=== PATIENT | female | born 1950 | race Caucasian/White ===

== ENCOUNTER 2022-10-23 10:55 | Outpatient (OUT) | payer MEDICARE, BC, SELFPAY ==
[2022-10-23 11:45] LABS: Creatinine Urine Random 97.93 mg/dL (20.00-300.00); Microalbum Creatinine Ratio Ur 82.7 mg/g (0.0-29.9); Microalbumin Urine Random 8.1 mg/dL (<=30.0)
[2022-10-23 11:55] LABS: Alanine Aminotransferase 18 U/L (14-59); Albumin Globulin Ratio 1.2; Albumin Level 3.8 g/dL (3.4-5.0); Alkaline Phosphatase 71 U/L (46-116); Anion Gap 13.9; Aspartate Amino Transferase 8 U/L (15-37); BUN Creatinine Ratio 14.9; Bilirubin Total 1.1 mg/dL (0.2-1.0); Calcium 9.3 mg/dL (8.5-10.1); Chloride 104 mmol/L (98-107); Chol HDL Ratio 2.8; Cholesterol 168 mg/dL (<=200); Estimated GFR (African America >60 (>=60); Estimated GFR (Non-African Ame >60 (>=60); Globulin 3.2 g/dL; Glucose 111 mg/dL (74-106); HDL Cholesterol 59 mg/dL (40-60); LDL Cholesterol Calculated 85.6 mg/dL; Potassium 4.9 mmol/L (3.5-5.1); Sodium 142 mmol/L (136-145); Triglycerides 117 mg/dL (<=150); VLDL CHOLESTEROL 23.4 mg/dL
[2022-10-23 12:04] LABS: Basophils Absolute Auto 0.1 10^3/uL (0.0-0.1); Basophils Percent Auto 0.7 % (0.2-2.0); Eosinophils Absolute Auto 0.5 10^3/uL (0.0-0.7); Eosinophils Percent Auto 5.2 % (0.9-7.0); Hematocrit 39.5 % (36.0-48.0); Hemoglobin 12.7 g/dL (12.0-16.0); Immature Granulocytes Abs Auto 0.03 10^3/uL (0.00-0.03); Immature Granulocytes Pct Auto 0.3 % (0.0-0.5); Lymphocytes Absolute Auto 2.5 10^3/uL (1.2-3.8); Lymphocytes Percent Auto 28.3 % (20.5-60.0); Mean Corpuscular HGB Conc 32.2 g/dL (29.9-35.2); Mean Corpuscular Hemoglobin 30.1 pg (26.7-34.0); Mean Corpuscular Volume 93.6 fL (81.0-99.0); Mean Platelet Volume 9.9 fL (9.5-13.5); Monocytes Absolute Auto 0.7 10^3/uL (0.3-0.8); Monocytes Percent Auto 7.7 % (1.7-12.0); Neutrophils Absolute Auto 5.1 10^3/uL (1.4-6.5); Neutrophils Percent Auto 57.8 % (43.0-75.0); Platelet Count 312 10^3/uL (150-450); Red Blood Count 4.22 10^6/uL (4.20-5.40); Red Cell Distribution Width 13.3 % (11.0-15.0); White Blood Count 8.8 10^3/uL (4.0-11.0)
[2022-10-23 12:15] LABS: Estimated Average Glucose 134 mg/dL; Glycohemoglobin A1C 6.3 % (4.5-6.2)
== END 2022-10-23 10:56 | disposition home or self-care (01) ==
LOC: LAB 10:59
PROVIDERS: PCP Family Medicine; Visit Provider Family Medicine
DX: E78.5 Hyperlipidemia, unspecified (principal); E11.9 Type 2 diabetes mellitus without complications; Z79.899 Other long term (current) drug therapy; R80.9 Proteinuria, unspecified; D75.89 Other specified diseases of blood and blood-forming organs
CPT/HCPCS: 36415; 80053; 80061; 82043; 82570; 82607; 82746; 83036; 85025

== ENCOUNTER 2022-12-31 14:08 | Outpatient (REF) | payer MEDICARE, BC, SELFPAY ==
[2022-12-31 16:01] LABS: Occult Blood Positive
== END 2022-12-31 14:09 | disposition home or self-care (01) ==
LOC: LAB 14:08
PROVIDERS: PCP Family Medicine; Visit Provider Family Medicine
DX: D64.9 Anemia, unspecified (principal)
CPT/HCPCS: G0328

== ENCOUNTER 2023-01-06 09:34 | Outpatient (OUT) | payer MEDICARE, BC, SELFPAY ==
--- NOTE | 2023-01-06 09:39 | CT_ITS ---
[address] [address] Patient Name: ANGELA NIETO MRN: [id number] date: 1950 Sex: F Assigned Patient Location: CT Current Patient Location: LAB Accession/Order Number: [id number] Exam Date: 01/06/2023 09:48 Report Date: 01/07/2023 18:31 At the request of: MARY ANNE STARKEY Procedure: CT chest wo con EXAM: CT chest wo con HISTORY: Multiple Pulmonary Nodules R91.8 COMPARISON: 01/01/2010 2 TECHNIQUE: Axial CT imaging was performed through the chest without intravenous contrast. Multiplanar reformats were performed. Dose reduction techniques were achieved by using automated exposure control and/or adjustment of mA and/or kV according to patient size and/or use of iterative reconstruction technique. FINDINGS: Lungs: No consolidation, pneumothorax, or effusion. Stable 0.7 cm right middle lobe pulmonary nodule. Stable 0.8 cm right lower lobe subpleural pulmonary nodule. There are additional nodules in the right lower lobe (3 nodules), measuring up to 0.3 cm No new pulmonary nodule, unchanged. Airways: Normal. Mediastinum: No adenopathy. Aorta: No aneurysm. Cardiac: Normal size. No pericardial effusion. Pulmonary vasculature: Normal morphology. Bones: No acute bony abnormality. Axilla: No adenopathy. Thyroid gland: No abnormality demonstrated on provided imaging. Soft tissues: Unremarkable. Upper abdomen: Small hiatal hernia. Other findings: None. CT/CT chest wo con IMPRESSION: Stable multiple bilateral pulmonary nodules measuring up to 0.8 cm as described above. Small hiatal hernia. Electronically authenticated by: NAN ROGER Date: 01/07/2023 18:31
== END 2023-01-06 09:35 | disposition home or self-care (01) ==
LOC: CT 09:34
PROVIDERS: PCP Family Medicine; Visit Provider Internal Medicine
DX: R91.8 Other nonspecific abnormal finding of lung field (principal)
CPT/HCPCS: 71250

== ENCOUNTER 2023-01-06 10:20 | Outpatient (OUT) | payer MEDICARE, BC, SELFPAY ==
[2023-01-06 11:03] LABS: Basophils Absolute Auto 0.1 10^3/uL (0.0-0.1); Basophils Percent Auto 0.6 % (0.2-2.0); Eosinophils Absolute Auto 0.3 10^3/uL (0.0-0.7); Eosinophils Percent Auto 3.1 % (0.9-7.0); Hematocrit 41.1 % (36.0-48.0); Immature Granulocytes Abs Auto 0.02 10^3/uL (0.00-0.03); Immature Granulocytes Pct Auto 0.2 % (0.0-0.5); Lymphocytes Absolute Auto 2.6 10^3/uL (1.2-3.8); Lymphocytes Percent Auto 27.1 % (20.5-60.0); Mean Corpuscular HGB Conc 31.6 g/dL (29.9-35.2); Mean Corpuscular Hemoglobin 29.9 pg (26.7-34.0); Mean Corpuscular Volume 94.5 fL (81.0-99.0); Mean Platelet Volume 9.8 fL (9.5-13.5); Monocytes Absolute Auto 0.8 10^3/uL (0.3-0.8); Monocytes Percent Auto 8.9 % (1.7-12.0); Neutrophils Absolute Auto 5.7 10^3/uL (1.4-6.5); Neutrophils Percent Auto 60.1 % (43.0-75.0); Platelet Count 351 10^3/uL (150-450); Red Blood Count 4.35 10^6/uL (4.20-5.40); Red Cell Distribution Width 13.2 % (11.0-15.0); White Blood Count 9.5 10^3/uL (4.0-11.0)
== END 2023-01-06 10:21 | disposition home or self-care (01) ==
LOC: LAB 10:22
PROVIDERS: PCP Family Medicine; Visit Provider Family Medicine
DX: D64.9 Anemia, unspecified (principal)
CPT/HCPCS: 36415; 85025

== ENCOUNTER 2023-01-21 14:44 | Outpatient (OUT) | payer MEDICARE, BC, SELFPAY | END 2023-01-21 14:45 | disposition home or self-care (01) | LOC: PST 14:45 | PROVIDERS: PCP Family Medicine; Visit Provider Surgery | DX: Z01.818 Encounter for other preprocedural examination (principal); R19.5 Other fecal abnormalities ==

== ENCOUNTER 2023-02-12 06:30 | Day surgery (SDC) | payer MEDICARE, BC, SELFPAY ==
[2023-02-12 06:50] VITALS: BMI 26.6
--- NOTE | 2023-02-12 07:03 | PM.GSPRC ---
Date of procedure: 02/12/23 Indications for Procedure: positive cologuard Pre-op diagnosis: positive cologuard Procedure: EGD with biopsy antrum Colonoscopy Anesthesia: MAC Surgeon: Jose Horton Procedure Summary: PROCEDURE: The patient was taken to the Endoscopy Suite, placed in the left lateral recumbent position, given IV sedation as above. A rectal digital exam was performed. The sphincter tone was found to be normal. No rectal masses were appreciated. The Olympus video colonoscope was advanced under direct visualization to the rectum, sigmoid colon, descending colon, transverse colon and ascending colon to the ileocecal valve. The underside of the valve was seen. The scope was slowly withdrawn with air being desufflated as it was withdrawn. No gross tumors, polyps or diverticula were seen. The patient tolerated the procedure well and went to the Recovery Area in satisfactory condition. I recommend the patient use a bulk laxative on a regular basis and follow up as needed.
[2023-02-12 07:10] LABS: Glucometer 113 mg/dL (74-106)
[2023-02-12] MEDS: LACTATED RINGER'S SOLUTION 1,000 ML 50 ML IV (07:10)
--- NOTE | 2023-02-12 07:58 | PM.GSPRC ---
Date of procedure: 02/12/23 Indications for Procedure: positive cologuard Pre-op diagnosis: positive cologuard Procedure: EGD with biopsy antrum Colonoscopy with hot snare polyp splenic flexure and transverse colon Findings: mild gastritis rule out esophagitis Colon polyps 7-8 mm on stalk and splenic flexure 5 mm polyp transverse colon sessile Anesthesia: LEXIE Surgeon: Jose Horton Procedure Summary: PROCEDURE: The patient was taken to the Endoscopy Suite, placed in the left lateral recumbent position, given IV sedation as above. timeout was taken. The Olympus EGD scope was advanced under direct visualization to the posterior pharynx esophagus stomach through the pylorus into the 1st 2nd 3rd and 4th portions of the duodenum which were normal. The scope was returned to the stomach retroflexed on itself looking the GE junction which was normal. There were no polyps tumors or ulcers seen but she had mild gastritis. Biopsies were taken of the antrum as well as a test for close. Next patient was turned and A rectal digital exam was performed. The sphincter tone was found to be normal. No rectal masses were appreciated. The Olympus video colonoscope was advanced under direct visualization to the rectum, sigmoid colon, descending colon, transverse colon and ascending colon to the ileocecal valve.appendiceal lumen was visualized as well as the underside of the valve. The scope was slowly withdrawn with air being desufflated as it was withdrawn. No gross tumors or diverticula were seen. there was a pedunculated polyp which appeared benign in the splenic flexure and this was snared and retrieved and then another smaller polyp in the transverse colon which was snared and removed but unsure if it was retrieved. Air was desufflated.The patient tolerated the procedure well and went to the Recovery Area in satisfactory condition. I recommend the patient return for surveillance colonoscopy in five years as long as these are benign. Estimated blood loss (mL): 0 Complications: No Condition: stable Disposition: PACU
[2023-02-12 08:01] VITALS: BP 97/59; PULSE 65; RESP 14; TEMP 36.3; O2SAT 98
[2023-02-12 08:16] VITALS: BP 115/68; PULSE 69; RESP 16; O2SAT 96
[2023-02-12 08:30] VITALS: BP 137/78; PULSE 68; RESP 18; O2SAT 97
[2023-02-13 14:43] LABS: H Pylori Tissue, Urease Negative
== END 2023-02-12 08:35 | disposition home or self-care (01) ==
PROVIDERS: PCP Family Medicine; Visit Provider Surgery
PROC: (CPT 43239; principal; 2023-02-12 07:30)
DX: R19.5 Other fecal abnormalities (principal); K29.70 Gastritis, unspecified, without bleeding; D12.3 Benign neoplasm of transverse colon; N18.9 Chronic kidney disease, unspecified; E11.22 Type 2 diabetes mellitus with diabetic chronic kidney disease; E78.5 Hyperlipidemia, unspecified; I12.9 Hypertensive chronic kidney disease with stage 1 through stage 4 chronic kidney disease, or unspecified chronic kidney disease; Z86.73 Personal history of transient ischemic attack (TIA), and cerebral infarction without residual deficits; Z79.82 Long term (current) use of aspirin; Z79.84 Long term (current) use of oral hypoglycemic drugs; K63.5 Polyp of colon
CPT/HCPCS: 43239; 45385; 36415; 82948; 87077; 88305; 88342; 99999; J2704

== ENCOUNTER 2023-04-29 09:42 | Outpatient (OUT) | payer MEDICARE, BC, SELFPAY ==
--- OUTSIDE RECORDS SUMMARY | 2023-04-29 09:48 | XMS_ITS | CCD ---
Author Name Unknown Address [address] [place] [address] Organization [facility] Care Team Providers Care Cardiology Consultant Name Role Phone MARIA DE JESUS GREEN Unavailable Unavailable ARABELLA MARQUEZ Unavailable Unavailable Arabella Marquez Unavailable Unavailable Unavailable Unavailable Arabella Marquez Unavailable Arabella Marquez Unavailable Norma, Dr. Bailey Attending Unavail able Norma, Dr. Bailey Referring Unavail able Julissa, Arabella Sanchez Primary Care Unavailable GIRVIN, DR BELL Attending Unavailable GIRVIN, DR BELL Consulting Unavailable GIRVIN, DR BELL Primary Care Unavailable GIRVIN, DR BELL Admitting Unavailable ZIEBER, DR DARIEL Hinds Consulting Unavailable GIRVIN, DR BELL Admitting Unavailable GIRVIN, DR BELL Attending Unavailable GIRVIN, DR BELL Consulting Unavailable GIRVIN, DR BELL Primary Care Unavailable SAMSA, MARY ANNE Attending Unavailable SAMSA, MARY ANNE Consulting Unavailable SAMSA, MARY ANNE Admitting Unavailable GIRVIN, DR BELL Primary Care Unavailable LALA, ARABELLA Consulting Unavailable GIRVIN, DR BELL Attending Unavailable GIRVIN, DR BELL Consulting Unavailable GIRVIN, DR BELL Primary Care Unavailable GIRVIN, DR BELL Admitting Unavailable Traboulssi, Dr. Goss Referring Unavaila ble Norma, Dr. Goss Attending Unavaila ble Julissa, Dr. Arabella Sanchez Primary Care Unavaila ble Girvin, Dr. Arabella Sanchez Primary Care Unavaila ble Traboulkartik, Dr. Goss Referring Unavaila ble Traboulkartik, Dr. Goss Attending Unavaila ble Allergies Allergy Classification Reported Allergen(s) Allergy Type Date of Onset Reaction(s) Facility (6 sources) egg Allergy to substance (finding) Unknown -[facility] DO Work Phone: Medications Current Medications Medication Drug Class(es) Dates Sig (Normalized) Sig (Original) atorvastatin 40 mg oral tablet (20 sources) HMG-CoA Reductase Inhibitor Start: 03-16-2018 take 1 tablet by mouth every twenty-four hours Atorvastatin Calcium 40 MG 1 tablet Orally Once a day for 90 days Feb, Active 24 hr fexofenadine hydrochloride 180 mg / pseudoephedrine hydrochloride 240 mg extended release oral tablet (14 sources) alpha-Adrenergic Agonist, Histamine-1 Receptor Antagonist Start: 10-11-2020 take 1 tablet by mouth every twenty-four hours Fexofenadine-Pseud oephed ER 180-240 MG 1 tablet Orally Once a day prn Sep, Active gabapentin 300 mg oral capsule (20 sources) Anti-epileptic Agent Gabapentin 300 MG TAKE 1 CAPSULE BY MOUTH TWICE A DAY FOR 90 DAYS for 90 Active take 2 capsules by mouth once da edison Gabapentin 300 MG Oral Capsule TAKE 2 CAPSULE Daily Quantity: 0 Refills: 0 Ordered: 17-Apr-2021 DO Active losartan potassium 50 mg ora l tablet (20 sources) Angiotensin 2 Receptor Neha Losartan Potassium 5 0 MG TAKE 1 TABLET BY MOUTH EVERY DAY FOR 90 DAYS for 90 Active metFORMIN hydrochloride 500 mg oral tablet (20 sources) Biguanide metFORMIN HCl 50 0 MG TAKE 2 TABLETS BY MOUTH WITH BREAKFAST AND TAKE 1 TABLET WITH EVENING MEAL FOR 90 DAYS for 90 Active take 2 tablets by mo uth at breakfast, then take 1 tablet by mouth at dinner metFORMIN HCl 500 mg 2 tablets with breakfast meal Orally and 1 tablet with evening meal for 90 days Active 24 hr metoprolol succinate 200 mg extended release oral tablet (20 sources) beta-Adrenergic Neha take 1 tablet by mouth once daily Metoprolol Succinate ER 200 MG TAKE 1 TABLET BY MOUTH EVERY DAY for 90 Active triamcinolone acetonide 0.055 mg/actuat metered dose nasal spray (15 sources) Corticosteroid Start: 10-17-19 take 2 spray(s) nasal route once daily Nasacort Allergy 24HR 55 MCG/ACT 2 sprays each nostril Nasally Once a day Sep, Active Start: 01-08-2019 KENARCHIE - 10 m g Dec, 1.5 cc 24 hr venlafaxine 75 mg extended release oral capsule (20 sources) Serotonin and Norepinephrine Reuptake Inhibitor Venlafaxine HCl ER 7 5 MG TAKE 1 CAPSULE BY MOUTH EVERY DAY WITH FOOD FOR 90 DAYS for 90 Active take 1 capsule by mo ut once daily at mealtime Effexor XR 150 MG Oral Capsule Extended Release 24 Hour TAKE 1 CAPSULE ONCE DAILY WITH FOOD. Quantity: 0 Refills: 0 Ordered: 17-Apr-2021 DO Active Vitamin B12 1000 MCG (10 sources) Start: 10-16-2021 take 1 tablet by mouth every other day Vitamin B12 1000 MCG 1 tablet Orally qod Sep, Active {20 (nirmatrelvir 150 MG Oral Tablet) / 10 (ritonavir 100 MG Oral Tablet) } Pack [Paxlovid 5-Day] (1 source) Start: 02-04-2022 Paxlovid (300/ 100) 20 x 150 MG & 10 x 100MG as directed Orally bid Jan, Active Completed/Discontinued Medications Medication Drug Class(es) Dates Sig (Normalized) Sig (Original) aspirin 81 mg delayed release oral tablet (20 sources) Platelet Aggregation Inhibitor, Nonsteroidal Anti-inflammatory Drug Start: 04-17-2021 take 1 tablet by mouth once daily Aspirin EC Low Dose 81 MG Oral Tablet Delayed Release TAKE 1 TABLET DAILY DIRECTED. Quantity: 90 Refills: 3 Ordered: 28-Jan-2022 Maria De Jesus Green MD Start : 17-Apr-2021 Active take 1 tablet by seth th once daily at mealtime Aspirin 81 81 MG 1 tablet Orally qd with food Active take 1 tablet by seth th every twenty-four hours Aspirin 325 MG 1 tablet Orally Once a da y Active Problems Active Problems Problem Classification Problem Date Documented Date Episodic/Chronic Acute cerebrovascular disease (20 sources) Cerebrovascular accident; Translations: [Cerebral artery occlusion, unspecified with cerebral infarction] Onset: 2 Resolved: 2 Chronic Cardiac dysrhythmias (1 source) Tachycardia, unspecified Episodic Coronary atherosclerosis and other heart disease (1 source) Coronary atherosclerosis and other heart disease Onset: 8 Deficiency and other anemia (1 source) Anemia, unspecified Episodic Diabetes mellitus with complications (1 source) Diabetes mellitus with complications Onset: 8 Diabetes mellitus without complication (20 sources) Diabetes mellitus; Translations: [Diabetes mellitus without mention of complication, type II or unspecified type, not stated as uncontrolled] Onset: 2 Resolved: 2 Chronic Diseases of mouth; excluding dental (19 sources) Glossodynia; Translations: [Glossodynia] Onset: 2 Resolved: 2 Episodic Disorders of lipid metabolism (20 sources) Hyperlipidemia; Translations: [Other and unspecified hyperlipidemia] Onset: 2 Resolved: 2 Chronic Essential hypertension (20 sources) Hypertensive disorder; Translations: [Unspecified essential hypertension] Onset: 2 Resolved: 2 Chronic Essential hypertension (1 source) Essential hypertension Onset: 8 Genitourinary symptoms and ill-defined conditions (4 sources) Hematuria, unspecified; Translations: [Nocturia] Onset: 2 Resolved: 2 Episodic Mood disorders (19 sources) Major depressive disorder, single episode, unspecified; Translations: [Depression] Onset: 2 Resolved: 2 Chronic Other aftercare (5 sources) Other halfway (current) drug therapy; Translations: [OTH SENIOR CARE CURRENT DRUG THERAPY] Onset: 2 Resolved: 2 Episodic Other connective tissue disease (2 sources) Pain in unspecified foot Episodic Other hematologic conditions (10 sources) Macrocytosis; Translations: [Other specified diseases of blood and blood-forming organs] Chronic Other hematologic conditions (7 sources) Other specified diseases of blood and blood-forming organs; Translations: [OTH SPEC DZ BLOOD AND BLOOD-FORM ORG] Onset: 2 Resolved: 2 Chronic Other lower respiratory disease (6 sources) Dyspnea on exertion; Translations: [Shortness of breath] Episodic Other lower respiratory disease (12 sources) Nodule of lung; Translations: [Solitary pulmonary nodule] Episodic Other lower respiratory disease (8 sources) Solitary pulmonary nodule; Translations: [SOLITARY PULMONARY NODULE] Onset: 2 Resolved: 2 Episodic Other lower respiratory disease (1 source) Multiple nodules of lung; Translations: [Other nonspecific abnormal finding of lung field] Episodic Other nervous system disorders (14 sources) Skin sensation disturbance; Translations: [Paresthesia of skin] Episodic Other nervous system disorders (4 sources) Paresthesia; Translations: [Paresthesia of skin] Episodic Other nervous system disorders (1 source) Paresthesia of skin Episodic Other nutritional; endocrine; and metabolic disorders (1 source) Obesity; Translations: [Obesity, unspecified] Chronic Other nutritional; endocrine; and metabolic disorders (5 sources) Overweight in adulthood with body mass index of 25 or more but less than 30; Translations: [Overweight] Episodic Other nutritional; endocrine; and metabolic disorders (2 sources) Abnormal weight loss Onset: 2 Resolved: 2 Episodic Other nutritional; endocrine; and metabolic disorders (3 sources) Abnormal weight gain; Translations: [ABNORMAL WEIGHT GAIN] Onset: 2 Resolved: 2 Episodic Other screening for suspected conditions (not mental disorders or infectious disease) (8 sources) Abnormal electrocardiogram [ECG] [EKG]; Translations: [Electrocardiogram abnormal] Onset: 8 Resolved: 2 Episodic Other upper respiratory disease (14 sources) Allergic rhinitis; Translations: [Allergic rhinitis, unspecified] Chronic Other upper respiratory disease (4 sources) Allergic rhinitis, unspecified Onset: 2 Resolved: 2 Chronic Latasha-; endo-; and myocarditis; cardiomyopathy (except that caused by tuberculosis or sexually transmitted disease) (20 sources) Cardiomyopathy; Translations: [Other primary cardiomyopathies] Onset: 2 Resolved: 2 Chronic Unclassified (2 sources) Abnormal electrocardiogram [ECG] [EKG] / R94.31(ICD-9) Onset: 8 Unclassified (1 source) Shortness of breath / R06.02(ICD-9) Onset: 8 Unclassified (1 source) Family hx of ischem heart dis and oth dis of the circ sys / Z82.49(ICD-9) Onset: 8 Unclassified (1 source) Prsnl hx of TIA (TIA), and cereb infrc w/o resid deficits / Z86.73(ICD-9) Onset: 8 Unclassified (1 source) Obesity, unspecified / E66.9(ICD-9) Onset: 8 Unclassified (1 source) Cardiomyopathy, unspecified / I42.9(ICD-9) Onset: 8 Past or Other Problems Problem Classification Problem Date Documented Da te Episodic/Chronic Other lower respiratory disease (5 sources) Other nonspecific abnormal finding of lung field; Translations: [OTH NONSPECIFIC ABN FIND LNG FIELD] Onset: 07-19-2021 Episodic Unclassified (6 sources) Never smoked tobacco; Translations: [Never a smoker] Results Test Name Value Interpretation Reference Range Facility Office Visit (Cardiology)on 10-29-2022 Follow-up visit Diagnoses/Problems Assessed Cardiomyopathy (425.4) (I42.9) HTN (hypertension) (401.9) (I10) Hyperlipemia (272.4) (E78.5) Never a smoker Shortness of breath on exertion (786.05) (R06.02) Diabetes mellitus (250.00) (E11.9) CVA (cerebral vascular accident) (434.91) (I63.9) Overweight with body mass index (BMI) of 28 to 28.9 in adult (278.02,V85.24) (E66.3,Z68.28) Lung nodules (793.19) (R91.8) Orders Cardiomyopathy, HTN (hypertension) Renew: Losartan Potassium 50 MG Oral Tablet; TAKE 1 TABLET DAILY Renew: Metoprolol Succinate ER 200 MG Oral Tablet Extended Release 24 Hour; TAKE 1 TABLET ONCE DAILY CVA (cerebral vascular accident) Renew: Aspirin EC Low Dose 81 MG Oral Tablet Delayed Release; TAKE 1 TABLET DAILY DIRECTED Hyperlipemia Renew: Atorvastatin Calcium 40 MG Oral Tablet; TAKE 1 TABLET DAILY Overweight with body mass index (BMI) of 28 to 28.9 in adult Healthy Weight Tips; Status:Complete - Retrospective Authorization; Done: [id number] Some eating tips that can help you lose weight.; Status:Complete - Retrospective Authorization; Done: [id number] SocHx: Never a smoker Tobacco Use Screening; Status:Complete; Done: [id number] Patient Instructions Please bring all medicines, vitamins, and herbal supplements with you when you come to the office. Prescriptions will not be filled unless you are compliant with your follow up appointments or have a follow up appointment scheduled as per instruction of your physician. Refills should be requested at the time of your visit. Follow up in 1 year. Chief Complaint ANGELA NIETO is being seen for a 9 month follow-up of. History of Present Illness Patient is here for follow-up to management for hypertension, cardiomyopathy, abnormal EKG, obesity and previous evaluation for shortness of breath. Since last time I saw her she denies any change in cardiac status or symptoms. She denies lightheadedness, dizziness or syncope. She remains reasonably active. Recent lab work noted and reviewed with her. ASSESSMENT: 1. Mild shortness of breath and the patient with history of hypertensive heart disease. Echocardiogram was suboptimal but suggest LVEF around 65%. Recently noted to have some pulmonary nodules currently following with pulmonary 2. Hypertension, controlled. 3. cardiomyopathy, seems to have improved 4. Abnormal ECG demonstrating diffuse ST-T abnormality that clearly consistent with hypertensive heart disease. 5. Hyperlipidemia, controlled. 6. Mild obesity. 7. Remote history of stroke with no residual deficits. 8. Tongue soreness of unclear etiology she reported resolution 9. Multiple lung nodule followed by pulmonary RECOMMENDATIONS: 1. Patient was advised to continue present medical therapy 2. Reviewed with the patient the results of her recent lab 3. The patient was advised to lose weight, exercise, and I will see her back in the office in 9 months Surgical History Problems History of Complete colonoscopy Managed By: Gallo NEWTON, Jewel Knight (Gastroenterology) History of Neck surgery History of Renal lithotripsy History of Tubal ligation Current Meds Medication NameInstruction Aspirin EC Low Dose 81 MG Oral Tablet Delayed ReleaseTAKE 1 TABLET DAILY DIRECTED. Atorvastatin Calcium 40 MG Oral TabletTAKE 1 TABLET DAILY. Effexor XR 150 MG Oral Capsule Extended Release 24 HourTAKE 1 CAPSULE ONCE DAILY WITH FOOD. Gabapentin 300 MG Oral CapsuleTAKE 2 CAPSULE Daily Losartan Potassium 50 MG Oral TabletTAKE 1 TABLET DAILY. metFORMIN HCl - 500 MG Oral Tablettake 2 tablets in morning, take 1 tablet at night. Metoprolol Succinate ER 200 MG Oral Tablet Extended Release 24 HourTAKE 1 TABLET ONCE DAILY. Montelukast Sodium TABS Allergies Medication No Known Drug Allergies Recorded By: Cindy Sloan; 12/12/2020 11:52:17 AM NonMedication Eggs Allergy; Unknown; Recorded By: Cindy Sloan; 12/12/2020 11:52:17 AM Social History Problems Daily caffeine consumption, 2-3 servings a day Never a smoker No alcohol use No illicit drug use Review of Systems Constitutional: not feeling tired. Cardiovascular: no intermittent leg claudication and as noted in HPI. Respiratory: no cough and no shortness of breath. Gastrointestinal: no change in bowel habits and no blood in stools. Integumentary: no skin rashes. Neurological: no seizures and no frequent falls. All other systems have been reviewed and are negative for complaint. Vitals Vital Signs Recorded: 29Oct2022 02:29PMRecorded: 29Oct2022 02:25PM Heart [id number] [id number] Height5 ft 3 in5 ft 3 in [id number] lb 12.8 oz160 lb 12.8 oz BMI Gopglacovn66.48 kg/m228.48 kg/m2 BSA Calculated1.761.76 Tobacco Useb) Nob) No PHQ-2 #1. Over the last 2 weeks have you felt down, depressed or hopeless? (If yes, answer PHQ-9 below)NoNo PHQ-2 #2. Over the last 2 weeks have you felt little interest or pleasure in doing things? (If yes, answer PHQ-9 bel (more content not included)... Normal [employer] CBC AUTO DIFFon 04-18-2022 BASO # 0.1 103/ul Normal 0.0-0.1 [facility] Comment on above: Performed By: #### C BC #### [facility] [address] [place] [address] Dr. Citlalli cShmidt Basophils/100 WBC (Bld) 0.7 % Normal 0.2-2.0 [facility] Comment on above: Performed By: #### C BC #### [facility] [address] [place] [address] Dr. Citlalli Schmidt EO # 0.6 103/ul Normal 0.0-0.7 [facility] Comment on above: Performed By: #### C BC #### [facility] [address] [place] [address] Dr. Citlalli Schmidt Eosinophils/100 WBC (Bld) 6.5 % Normal 0.9-7.0 [facility] Comment on above: Performed By: #### C BC #### [facility] [address] [place] [address] Dr. Citlalli Schmidt Erythrocyte distribution width (RBC) [Ratio] 13.2 % Normal 11.0-15.0 [facility] Comment on above: Performed By: #### C BC #### [facility] [address] [place] [address] Dr. Citlalli Schmidt Hematocrit (Bld) [Volume fraction] 42.5 % Normal 36.0-48.0 [facility] Comment on above: Performed By: #### C BC #### [facility] [address] [place] [address] Dr. Citlalli Schmidt Hemoglobin (Bld) [Mass/Vol] 13.9 g/dL Normal 12.0-16.0 [facility] Comment on above: Performed By: #### C BC #### [facility] [address] [place] [address] Dr. Citlalli Schmidt IG # 0.02 10e3/ul Normal 0.00-0.03 [facility] Comment on above: Performed By: #### C BC #### [facility] [address] [place] [address] Dr. Citlalli Schmidt IG % 0.2 % Normal 0.0-0.5 [facility] Comment on above: Performed By: #### C BC #### [facility] [address] [place] [address] Dr. Citlalli Schmidt LYMPH # 2.7 103/ul Normal 1.2-3.8 [facility] Comment on above: Performed By: #### C BC #### [facility] [address] [place] [address] Dr. Citlalli Schmidt Lymphocytes/100 WBC (Bld) 31.6 % Normal 20.5-60.0 [facility] Comment on above: Performed By: #### C BC #### [facility] [address] [place] [address] Dr. Citlalli Schmidt MANUAL DIFF REQ NO Normal [facility] Comment on above: Performed By: #### C BC #### [facility] [address] [place] [address] Dr. Citlalli Schmidt MCH (RBC) [Entitic mass] 30.4 pg Normal 26.7-34.0 [facility] Comment on above: Performed By: #### C BC #### [facility] [address] [address] [address] Citlalli Schmidt MCHC (RBC) [Mass/Vol] 32.7 g/dL Normal 29.9-35.2 [facility] Comment on above: Performed By: #### C BC #### [facility] [address] [place] [address] Dr. Citlalli Schmidt MCV (RBC) [Entitic vol] 93.0 fL Normal 81.0-99.0 [facility] Comment on above: Performed By: #### C BC #### [facility] [address] [place] [address] Dr. Citlalli Schmidt MONO # 0.7 103/ul Normal 0.3-0.8 [facility] Comment on above: Performed By: #### C BC #### [facility] [address] [place] [address] Dr. Citlalli Schmidt Monocytes/100 WBC (Bld) 8.2 % Normal 1.7-12.0 [facility] Comment on above: Performed By: #### C BC #### [facility] [address] [place] [address] Dr. Citlalli Schmidt NEUT # 4.5 103/ul Normal 1.4-6.5 [facility] Comment on above: Performed By: #### C BC #### [facility] [address] [place] [address] Dr. Citlalli Schmidt Neutrophils/100 WBC (Bld) 52.8 % Normal 43.0-75.0 [facility] Comment on above: Performed By: #### C BC #### [facility] [address] [place] [address] Dr. Citlalli Schmidt Platelet mean volume (Bld) [Entitic vol] 9.5 fL Normal 9.5-13.5 [facility] Comment on above: Performed By: #### C BC #### [facility] [address] [place] [address] Dr. Citlalli Schmidt PLT 321 103/ul Normal 150-450 [facility] Comment on above: Performed By: #### C BC #### [facility] [address] [place] [address] Dr. Citlalli Schmidt RBC 4.57 106/ul Normal 4.20-5.40 [facility] Comment on above: Performed By: #### C BC #### [facility] [address] [address] [address] Citlalli Schmidt WBC 8.4 103/ul Normal 4.0-11.0 [facility] Comment on above: Performed By: #### C BC #### [facility] [address] [address] [address] Citlalli Schmidt GLYCOHEMOGLOBIN A1Con 2022 ADA RECOMMENDATION SEE BELOW Normal [facility] Comment on above: Result Comment: ADA RECOMMENDED LIMIT 4.0 - 6.0 ADA THERAPEUTIC TARGET < 7.0 ACTION SUGGESTED > 7.0 Performed By: #### A 1C #### [facility] [address] [place] [address] Dr. Citlalli Schmidt Glucose [Mass/Vol] 137 mg/dL Normal [facility] Comment on above: Performed By: #### A 1C #### [facility] [address] [address] [address] Citlalli Schmidt HbA1c (Bld) [Mass fraction] 6.4 % Critically high 4.5-6.2 [facility] Comment on above: Performed By: #### A 1C #### [facility] [address] [place] [address] Dr. Citlalli Schmidt LIPID PROFILEon 04-18-2022 CHOL-HDL RATIO NORM SEE BELOW Normal [facility] Comment on above: Result Comment: 3.3 - 4.4 LOW RISK 4.4 - 7.1 AVERAGE RISK 7.1 - 11.0 MODERATE RISK >11.0 HIGH RISK Performed By: #### T SH, LIPID, CMP ####[facility] [id number] [address]Dr. Citlalli Schmidt Cholesterol [Mass/Vol] 165 mg/dL Normal <=200 [facility] Comment on above: Performed By: #### T SH, LIPID, CMP ####[facility] [id number] [address]Dr. Citlalli Schmidt Cholesterol in HDL [Mass/Vol] 58 mg/dL Normal 40-60 [facility] Comment on above: Performed By: #### T SH, LIPID, CMP ####[facility] [id number] [address]Dr. Citlalli Schmidt Cholesterol in LDL [Mass/Vol] 78.8 mg/dL Normal [facility] Comment on above: Performed By: #### T SH, LIPID, CMP ####[facility] [address] [address]Dr. Citlalli Schmidt Cholesterol.total/Cho lesterol in HDL [Mass ratio] 2.8 {ratio} Normal [facility] Comment on above: Performed By: #### T SH, LIPID, CMP ####[facility] [id number] [address]Dr. Citlalli Schmidt HDL NORMAL > or = 60 mg/dl - LOW CARDIOVASCULAR RISK <40 mg/dl - HIGH CARDIOVASCULAR RISK Normal [facility] Comment on above: Performed By: #### T SH, LIPID, CMP ####[facility] [id number] [address]Dr. Citlalli Schmidt LDL CALC NORMAL SEE BELOW Normal [facility] Comment on above: Result Comment: <100 mg/dl OPTIMAL 100 - 129 mg/dl NEAR OR ABOVE OPTIMAL 130 - 159 mg/dl BORDERLINE HIGH 160 - 189 mg/dl HIGH >190 mg/dl VERY HIGH Performed By: #### T SH, LIPID, CMP ####[facility] [address] [address]Dr. Citlalli Schmidt Triglyceride [Mass/Vol] 141 mg/dL Normal <=150 [facility] Comment on above: Performed By: #### T SH, LIPID, CMP ####[facility] [id number] [id number]. Citlalli Schmidt VLDL CALC 28.2 mg/dL Normal [facility] Comment on above: Performed By: #### T SH, LIPID, CMP ####[facility] [id number] [address]Dr. Citlalli Schmidt PROF 14(COMP METB)on 023 Albumin [Mass/Vol] 3.7 g/dL Normal 3.4-5.0 [facility] Comment on above: Performed By: #### T SH, LIPID, CMP ####[facility] [facility] [id number] [place] [address]Dr. Citlalli Schmidt Albumin/Globulin [Mass ratio] 1.1 {ratio} Normal [facility] Comment on above: Performed By: #### T SH, LIPID, CMP ####[facility] [address] [place] [address]Dr. Citlalli Schmidt ALP [Catalytic activity/Vol] 82 U/L Normal 46-116 [facility] Comment on above: Performed By: #### T SH, LIPID, CMP ####[facility] [address] [place] [address]Dr. Citlalli Schmidt ALT [Catalytic activity/Vol] 18 U/L Normal 14-59 [facility] Comment on above: Performed By: #### T SH, LIPID, CMP ####[facility] [address] [place], [place] [address]Dr. Citlalli Schmidt Anion gap [Moles/Vol] 12.4 mmol/L Normal [facility] Comment on above: Performed By: #### T SH, LIPID, CMP ####[facility] [address] [place], [place] [address]Dr. Citlalli Schmidt AST [Catalytic activity/Vol] 14 U/L Critically low 15-37 [facility] Comment on above: Performed By: #### T SH, LIPID, CMP ####[facility] [address] [place] [address]Dr. Citlalli Schmidt Bilirubin [Mass/Vol] 1.0 mg/dL Normal 0.2-1.0 [facility] Comment on above: Performed By: #### T SH, LIPID, CMP ####[facility] [address] [place] [address]Dr. Citlalli Schmidt Calcium [Mass/Vol] 9.4 mg/dL Normal 8.5-10.1 [facility] Comment on above: Performed By: #### T SH, LIPID, CMP ####[facility] [address] [place], [place] [address]Dr. Citlalli Schmidt Chloride [Moles/Vol] 104 mmol/L Normal 98-107 [facility] Comment on above: Performed By: #### T SH, LIPID, CMP ####[facility] [address] [place] [address]Dr. Citlalli Schmidt CO2 [Moles/Vol] 29.8 mmol/L Normal 21.0-32.0 [facility] Comment on above: Performed By: #### T IVETH, LIPID, CMP ####[facility] [address] [place] [address]Dr. Citlalli Schmidt Creatinine [Mass/Vol] 0.69 mg/dL Normal 0.55-1.02 [facility] Comment on above: Performed By: #### T IVETH, LIPID, CMP ####[facility] [address] [place] [address]Dr. Citlalli Schmidt EGFR-AF CYMRAES >60 Normal >=60 [facility] Comment on above: Performed By: #### T IVETH, LIPID, CMP ####[facility] [address] [place] [address]Dr. Citlalli Schmidt EGFR-NON AF CYMRAES >60 Normal >=60 [facility] Comment on above: Performed By: #### T IVETH, LIPID, CMP ####[facility] [address] [place] [address]Dr. Citlalli Schmidt Globulin (S) [Mass/Vol] 3.4 g/dL Normal [facility] Comment on above: Performed By: #### T IVETH, LIPID, CMP ####[facility] [address] [place] [address]Dr. Citlalli Schmidt Glucose [Mass/Vol] 116 mg/dL Critically high 74-106 [facility] Comment on above: Performed By: #### T IVETH, LIPID, CMP ####[facility] [address] [place] [address]Dr. Citlalli Schmidt Potassium [Moles/Vol] 4.2 mmol/L Normal 3.5-5.1 [facility] Comment on above: Performed By: #### T IVETH, LIPID, CMP ####[facility] [address] [place] [id number]. Citlalli Schmidt Protein [Mass/Vol] 7.1 g/dL Normal 6.4-8.2 [facility] Comment on above: Performed By: #### T SH, LIPID, CMP ####[facility] [address] [place] [id number]. Citlalli Schmidt Sodium [Moles/Vol] 142 mmol/L Normal 136-145 [facility] Comment on above: Performed By: #### T SH, LIPID, CMP ####[facility] [address] [place] [address]Dr. Citlalli Schmidt Urea nitrogen [Mass/Vol] 12.0 mg/dL Normal 7.0-18.0 [facility] Comment on above: Performed By: #### T IVETH, LIPID, CMP ####[facility] [address] [place] [address]Dr. Citlalli Schmidt Urea nitrogen/Creatinine [Mass ratio] 17.4 mg/mg Normal [facility] Comment on above: Performed By: #### T IVETH, LIPID, CMP ####[facility] [address] [place] [address]DrAcacia Schmidt TSHon 04-18-2022 TSH 1.444 uIU/mL Normal 0.358-3.740 [facility] Comment on above: Performed By: #### T IVETH, LIPID, CMP ####[facility] [address] [place] [address]Dr. Citlalli Schmidt VIT B12 AND FOLATEon 023 Cobalamin (Vitamin B12) [Mass/Vol] 419.0 pg/mL Normal 193.0-986.0 [facility] Comment on above: Performed By: #### B 12FOL #### [facility] [address] [place] [address] Dr. Citlalli Schmidt FOLATE 24.40 ng/mL Normal 8.60-58.90 [facility] Comment on above: Performed By: #### B 12FOL #### [facility] [address] [place] [address] Dr. Citlalli Schmidt Office Visit (Cardiology)on 01-28-2022 Follow-up visit Diagnoses/Problems Assessed Shortness of breath on exertion (786.05) (R06.02) Cardiomyopathy (425.4) (I42.9) Abnormal EKG (794.31) (R94.31) Diabetes mellitus (250.00) (E11.9) HTN (hypertension) (401.9) (I10) Hyperlipemia (272.4) (E78.5) Never a smoker CVA (cerebral vascular accident) (434.91) (I63.9) Class 1 obesity with body mass index (BMI) of 30.0 to 30.9 in adult (278.00,V85.30) (E66.9,Z68.30) Lung nodules (793.19) (R91.8) Orders Class 1 obesity with body mass index (BMI) of 30.0 to 30.9 in adult Healthy Weight Tips; Status:Complete - Retrospective Authorization; Done: 28Jan2022 Some eating tips that can help you lose weight.; Status:Complete - Retrospective Authorization; Done: 28Jan2022 CVA (cerebral vascular accident) Changed: From Aspirin EC 81 MG Oral Tablet Delayed Release TAKE 1 TABLET DAILY To Aspirin EC Low Dose 81 MG Oral Tablet Delayed Release TAKE 1 TABLET DAILY DIRECTED SocHx: Never a smoker Tobacco Use Screening; Status:Complete; Done: 28Jan2022 Patient Instructions Please bring all medicines, vitamins, and herbal supplements with you when you come to the office. Prescriptions will not be filled unless you are compliant with your follow up appointments or have a follow up appointment scheduled as per instruction of your physician. Refills should be requested at the time of your visit Follow up in 9 months Chief Complaint TESTING RESULTS. History of Present Illness Patient is here for follow-up continue management for history of nonischemic cardiomyopathy, abnormal EKG, hypertension and hyperlipidemia. Last time she reported some mild shortness of breath echocardiogram showed preserved LV function the quality of the study was suboptimal. Patient denies chest pain she discussed functional class I. She denies lightheadedness, dizziness or syncope. She was noted incidentally to have lung nodules and has been seen and followed by pulmonary. ASSESSMENT: 1. Mild shortness of breath and the patient with history of hypertensive heart disease. Echocardiogram was suboptimal but suggest LVEF around 65%. Recently noted to have some pulmonary nodules currently following with pulmonary 2. Hypertension, controlled. 3. cardiomyopathy, seems to have improved 4. Abnormal ECG demonstrating diffuse ST-T abnormality that clearly consistent with hypertensive heart disease. 5. Hyperlipidemia, controlled. 6. Mild obesity. 7. Remote history of stroke with no residual deficits. 8. Tongue soreness of unclear etiology she reported resolution 9. Multiple lung nodule followed by pulmonary RECOMMENDATIONS: 1. Patient was advised to continue present medical therapy 2. Reviewed with the patient the results of her recent lab work, echo and CT scan 3. The patient was advised to lose weight, exercise, and I will see her back in the office in 9 months Current Meds Medication NameInstruction Aspirin EC 81 MG Oral Tablet Delayed ReleaseTAKE 1 TABLET DAILY. Atorvastatin Calcium 40 MG Oral TabletTAKE 1 TABLET DAILY. Effexor XR 150 MG Oral Capsule Extended Release 24 HourTAKE 1 CAPSULE ONCE DAILY WITH FOOD. Gabapentin 300 MG Oral CapsuleTAKE 2 CAPSULE Daily Losartan Potassium 50 MG Oral TabletTAKE 1 TABLET DAILY. metFORMIN HCl - 500 MG Oral Tablettake 2 tablets in morning, take 1 tablet at night. Metoprolol Succinate ER 200 MG Oral Tablet Extended Release 24 HourTAKE 1 TABLET ONCE DAILY. Allergies Medication No Known Drug Allergies Recorded By: Cindy Sloan; 12/12/2020 11:52:17 AM NonMedication Eggs Allergy; Unknown; Recorded By: Cindy Sloan; 12/12/2020 11:52:17 AM Social History Problems Daily caffeine consumption, 2-3 servings a day Never a smoker No alcohol use No illicit drug use Review of Systems Constitutional: not feeling tired. Cardiovascular: no intermittent leg claudication and as noted in HPI. Respiratory: no cough and no shortness of breath. Gastrointestinal: no change in bowel habits and no blood in stools. Integumentary: no skin rashes. Neurological: no seizures and no frequent falls. All other systems have been reviewed and are negative for complaint. Vitals Vital Signs Recorded: 28Jan2022 02:28PM Heart Rate68, L Radial Tkxiwxan214, LUE, Sitting Uozibocrf34, LUE, Sitting Height5 ft 3 in Goloig220 lb BMI Gnfehufbto38.82 kg/m2 BSA Calculated1.82 Tobacco Useb) No PHQ-2 #1. Over the last 2 weeks have you felt down, depressed or hopeless? (If yes, answer PHQ-9 below)No PHQ-2 #2. Over the last 2 weeks have you felt little interest or pleasure in doing things? (If yes, answer PHQ-9 below)No Falls Screening (Age 18+)a) No falls within the last year Physical Exam Constitutional: alert and in no acute distress. Neck: neck is supple, symmetric, trachea midline, no masses and no thyromegaly . Pulmonary: no increased work of breathing or signs of respiratory distress and lungs clear to auscultation. Cardiovascular: carotid puls (more content not included)... Normal [email or web address] Tobacco Screening.on 022 Adult depression screening assessment No [facility] [employer] 250 DO Work Phone: Fall risk assessment a) No falls within the last year [facility] [employer] 250 DO Work Phone: Tobacco use status [facility] b) No [facility] 250 DO Work Phone: CT CHEST WO CONon 01-12-[address] CT CHEST WO CON CT CHEST WO CON CLINICAL: Lung field abnormal. Follow-up for pulmonary nodules. COMPARISON: 07/17/[address] and 06/22/2021 and lung base images from abdomen CT. TECHNIQUE: High-resolution thin section axial images were obtained from thoracic inlet to the level of the adrenals. Dose reduction: mA and/or kV are were adjusted by automated exposure control software based upon patients height and weight. FINDINGS: Thoracic inlet and axillary structures are grossly intact. No mediastinal or hilar adenopathy by CT criteria. Heart size is slightly enlarged. Coronary artery calcifications are present. No pericardial effusion. Fusiform ectasia of the ascending thoracic aorta is stable at 3.9 cm. Limited upper abdominal images show low-density hepatic lesions which are too small to definitively characterize at less than 1 cm but are consistent with simple cysts by density measurement. No acute upper abdominal findings. Lung windows redemonstrate several pulmonary nodules bilaterally, measuring 4 mm at the anterior left upper lobe, stable on image 25, series 3. 6 mm nodule in the right middle lobe, stable on image 80. 7 mm in the posterolateral right lower lobe at the pleural margin, stable on image 96. 5 mm in the medial right lower lobe, stable on image 98. Pleural-based densities at the posterior lung bases, greater on the right, stable and suggestive of scarring or atelectasis. No new or enlarging pulmonary parenchymal mass, regional airspace consolidation or pleural effusion. Central airways are patent. Osseous structures appear intact. IMPRESSION: 1. Stable multiple bilateral pulmonary nodules up to 7 mm in the right lower lobe. An additional 6 month follow-up CT is recommended for further stability assurance. 2. Stable pleural-parenchymal densities in the right lower lobe, suggestive of atelectasis or scarring in light of interval stability. No superimposed acute intrathoracic findings. Electronically authenticated by: ARABELLA REEVES Date: 2022-01-12 17:18 Normal [facility] Echocardiogramon 12-17-[address], [address], [place] [address] TRANSTHORACIC ECHOCARDIOGRAM REPORT Patient Name: ANGELA NIETO Reading Physician: [id number] Maria De Jesus Green MD Study Date: 12/17/2021 Referring Physician: MARIA DE JESUS GREEN MRN/PID: [id number] PCP: Arabella Marquez Accession/Order#: [id number] Department Location: [facility] Date of : 1950 Fellow: Gender: F Nurse: Admit Date: Desktop Administrator: Mamta Palacio [facility], T Height: 160.02 cm CC Report to: Weight: 75.30 kg Study Type: Echocardiogram BSA: 1.79 m2 Diagnosis/ICD: I42.9-Cardiomyopathy , unspecified Indication: Abnormal EKG, Diabetes, HTN, Hyperlipidemia, CVA, Overweight Procedure/CPT: Echo Complete w Full [id number] Study Detail: The following Echo studies were performed: 2D, M-Mode, Doppler and color flow. PHYSICIAN INTERPRETATION: Left Ventricle: Left ventricular systolic function is normal, with an estimated ejection fraction of 60-65%. The left ventricular cavity size is normal. Spectral Doppler shows an impaired relaxation pattern of left ventricular diastolic filling. Assessment of regional wall motion abnormality was limited due to suboptimal visualization of the endomyocardium. There is suspicion of severe degree of apical hypokinesis. Left Atrium: The left atrium is normal in size. Right Ventricle: The right ventricle is normal in size. There is normal right ventricular global systolic function. Right Atrium: The right atrium is normal in size. Aortic Valve: The aortic valve appears structurally normal. There is trivial aortic valve regurgitation. The peak instantaneous gradient of the aortic valve is 5.1 mmHg. The mean gradient of the aortic valve is 2.0 mmHg. Mitral Valve: The mitral valve is normal in structure. There is trace mitral valve regurgitation. Tricuspid Valve: The tricuspid valve is structurally normal. No evidence of tricuspid regurgitation. Pulmonic Valve: The pulmonic valve is structurally normal. There is no indication of pulmonic valve regurgitation. Pericardium: There is no pericardial effusion noted. Aorta: The aortic root is normal. CONCLUSIONS: 1. Left ventricular systolic function is normal with a 60-65% estimated ejection fraction. 2. Assessment of regional wall motion abnormality was limited due to suboptimal visualization of the endomyocardium. There is suspicion of severe degree of apical hypokinesis. 3. Spectral Doppler shows an impaired relaxation pattern of left ventricular diastolic filling. 4. When compared to prior study LVEF has improved. QUANTITATIVE DATA SUMMARY: 2D MEASUREMENTS: Normal Ranges: Ao Root d: 3.00 cm (2.0-3.7cm) LAs: 2.80 cm (2.7-4.0cm) RVIDd: 2.60 cm (0.9-3.6cm) IVSd: 1.40 cm (0.6-1.1cm) LVPWd: 0.90 cm (0.6-1.1cm) LVIDd: 3.60 cm (3.9-5.9cm) LVIDs: 2.50 cm LV Mass Index: 74.3 g/m2 LV % FS 30.6 % LV SYSTOLIC FUNCTION BY 2D PLANIMETRY (MOD): Normal Ranges: EF-A4C View: 68.0 % (>55%) LV DIASTOLIC FUNCTION: Normal Ranges: MV Peak E: 0.64 m/s (0.7-1.2 m/s) MV Peak A: 0.93 m/s (0.42-0.7 m/s) E/A Ratio: 0.69 (1.0-2.2) MV lateral e' 0.07 m/s MV medial e' 0.04 m/s E/e' Ratio: 9.80 (<8.0) MITRAL VALVE: Normal Ranges: MV Vmax: 0.92 m/s (<1.3m/s) MV peak P.4 mmHg (<5mmHg) MV mean P.0 mmHg (<48mmHg) AORTIC VALVE: Normal Ranges: AoV Vmax: 1.13 m/s (<1.7m/s) AoV Peak P.1 mmHg (<20mmHg) AoV Mean P.0 mmHg (1.7-11.5mmHg) LVOT Max Delfin: 0.98 m/s (<1.1m/s) AoV VTI: 23.10 cm (18-25cm) LVOT VTI: 19.90 cm LVOT Diameter: 1.80 cm (1.8-2.4cm) AoV Area, VTI: 2.19 cm2 (2.5-5.5cm2) AoV Area,Vmax: 2.21 cm2 (2.5-4.5cm2) AoV Dimensionless Index: 0.86 AORTIC INSUFFICIENCY: AI Vmax: 1.82 m/s AI Half-time: 569 msec AI Decel Rate: 93.50 cm/s2 TRICUSPID VALVE/RVSP: Normal Ranges: Peak TR Velocity: 1.90 m/s RV Syst Pressure: 17.4 mmHg (< 30mmHg) PULMONIC VALVE: Normal Ranges: PV Max Delfin: 0.7 m/s (0.6-0.9m/s) PV Max P.8 mmHg [id number] Maria De Jesus Green MD Electronically signed on 12/17/2021 at 12:50:22 PM Final Normal [facility] Falls Screening (Age 18+)on 12-17-2021 Fall risk assessment a) No falls within the last year [address] Work Phone: CBC AUTO DIFFon 10-12-2021 BASO # 0.1 103/ul Normal 0.0-0.1 [facility] Comment on above: Performed By: #### C BC #### [facility] [address] [place] [address] Dr. Citlalli Schmidt Basophils/100 WBC (Bld) 0.9 % Normal 0.2-2.0 [facility] Comment on above: Performed By: #### C BC #### [facility] [address] [place] [address] Dr. Citlalli Schmidt EO # 0.7 103/ul Normal 0.0-0.7 [facility] Comment on above: Performed By: #### C BC #### [facility] [address] [place] [address] Dr. Citlalli Schmidt Eosinophils/100 WBC (Bld) 7.0 % Normal 0.9-7.0 [facility] Comment on above: Performed By: #### C BC #### [facility] [address] [place] [address] Dr. Citlalli Schmidt Erythrocyte distribution width (RBC) [Ratio] 12.7 % Normal 11.0-15.0 [facility] Comment on above: Performed By: #### C BC #### [facility] [address] [place] [address] Dr. Citlalli Schmidt Hematocrit (Bld) [Volume fraction] 41.1 % Normal 36.0-48.0 [facility] Comment on above: Performed By: #### C BC #### [facility] [address] [place] [address] Dr. Citlalli Schmidt Hemoglobin (Bld) [Mass/Vol] 13.0 g/dL Normal 12.0-16.0 [facility] Comment on above: Performed By: #### C BC #### [facility] [address] [place] [address] Dr. Citlalli Schmidt IG # 0.02 10e3/ul Normal 0.00-0.03 [facility] Comment on above: Performed By: #### C BC #### [facility] [address] [place] [address] Dr. Citlalli Schmidt IG % 0.2 % Normal 0.0-0.5 [facility] Comment on above: Performed By: #### C BC #### [facility] [address] [place] [address] Dr. Citlalli Schmidt LYMPH # 3.2 103/ul Normal 1.2-3.8 [facility] Comment on above: Performed By: #### C BC #### [facility] [address] [place] [address] Dr. Citlalli Schmidt Lymphocytes/100 WBC (Bld) 34.8 % Normal 20.5-60.0 [facility] Comment on above: Performed By: #### C BC #### [facility] [address] [place] [address] Dr. Citlalli Schmidt MANUAL DIFF REQ NO Normal The [facility] Comment on above: Performed By: #### C BC #### [facility] [address] [place] [address] Dr. Citlalli Schmidt MCH (RBC) [Entitic mass] 30.6 pg Normal 26.7-34.0 [facility] Comment on above: Performed By: #### C BC #### [facility] [address] [place] [address] Dr. Citlalli Schmidt MCHC (RBC) [Mass/Vol] 31.6 g/dL Normal 29.9-35.2 [facility] Comment on above: Performed By: #### C BC #### [facility] [address] [place] [address] Dr. Citlalli Schmidt MCV (RBC) [Entitic vol] 96.7 fL Normal 81.0-99.0 [facility] Comment on above: Performed By: #### C BC #### [facility] [address] [place] [address] Dr. Citlalli Schmidt MONO # 0.8 103/ul Normal 0.3-0.8 [facility] Comment on above: Performed By: #### C BC #### [facility] [address] [place] [address] Dr. Citlalli Schmidt Monocytes/100 WBC (Bld) 8.5 % Normal 1.7-12.0 [facility] Comment on above: Performed By: #### C BC #### [facility] [address] [place] [address] Dr. Citlalli Schmidt NEUT # 4.5 103/ul Normal 1.4-6.5 [facility] Comment on above: Performed By: #### C BC #### [facility] [address] [place] [address] Dr. Citlalli Schmidt Neutrophils/100 WBC (Bld) 48.6 % Normal 43.0-75.0 [facility] Comment on above: Performed By: #### C BC #### [facility] [address] [place] [address] Dr. Citlalli Schmidt Platelet mean volume (Bld) [Entitic vol] 9.3 fL Critically low 9.5-13.5 [facility] Comment on above: Performed By: #### C BC #### [facility] [address] [place] [address] Dr. Citlalli Schmidt PLT 316 103/ul Normal 150-450 [facility] Comment on above: Performed By: #### C BC #### [facility] [address] [place] [address] Dr. Citlalli Schmidt RBC 4.25 106/ul Normal 4.20-5.40 [facility] Comment on above: Performed By: #### C BC #### [facility] [address] [place] [address] Dr. Citlalli Schmidt WBC 9.2 103/ul Normal 4.0-11.0 [facility] Comment on above: Performed By: #### C BC #### [facility] [address] [place] [address] Dr. Citlalli Schmidt GLYCOHEMOGLOBIN A1Con 2021 ADA RECOMMENDATION SEE BELOW Normal [facility] Comment on above: Result Comment: ADA RECOMMENDED LIMIT 4.0 - 6.0 ADA THERAPEUTIC TARGET < 7.0 ACTION SUGGESTED > 7.0 Performed By: #### A 1C #### [facility] [address] [place] [address] Dr. Citlalli Schmidt Glucose [Mass/Vol] 137 mg/dL Normal [facility] Comment on above: Performed By: #### A 1C #### [facility] [address] [place] [address] Dr. Citlalli Schmidt HbA1c (Bld) [Mass fraction] 6.4 % Critically high 4.5-6.2 [facility] Comment on above: Performed By: #### A 1C #### [facility] [address] [place] [address] Dr. Citlalli Schmidt LIPID PROFILEon 10-12-2021 CHOL-HDL RATIO NORM SEE BELOW Normal [facility] Comment on above: Result Comment: 3.3 - 4.4 LOW RISK 4.4 - 7.1 AVERAGE RISK 7.1 - 11.0 MODERATE RISK >11.0 HIGH RISK Performed By: #### L IPID, CMP #### [facility] [address] [address] [address] Citlalli Schmidt Cholesterol [Mass/Vol] 175 mg/dL Normal <=200 [facility] Comment on above: Performed By: #### L IPID, CMP #### [facility] [address] [place] [address] [address] Citlalli Schmidt Cholesterol in HDL [Mass/Vol] 53 mg/dL Normal 40-60 [facility] Comment on above: Performed By: #### L IPID, CMP #### [facility] [address] [address] [address] Citlalli Schmidt Cholesterol in LDL [Mass/Vol] 94.6 mg/dL Normal [facility] Comment on above: Performed By: #### L IPID, CMP #### [facility] [address] [address] [address] Citlalli Schmidt Cholesterol.total/Cho lesterol in HDL [Mass ratio] 3.3 {ratio} Normal [facility] Comment on above: Performed By: #### L IPID, CMP #### [facility] [address] [address] [address] Citlalli Schmidt HDL NORMAL > or = 60 mg/dl - LOW CARDIOVASCULAR RISK <40 mg/dl - HIGH CARDIOVASCULAR RISK Normal [facility] Comment on above: Performed By: #### L IPID, CMP #### [facility] [address] [address] [address] Citlalli Schmidt LDL CALC NORMAL SEE BELOW Normal [facility] Comment on above: Result Comment: <100 mg/dl OPTIMAL 100 - 129 mg/dl NEAR OR ABOVE OPTIMAL 130 - 159 mg/dl BORDERLINE HIGH 160 - 189 mg/dl HIGH >190 mg/dl VERY HIGH Performed By: #### L IPID, CMP #### [facility] [address] [address] [address] Citlalli Schmidt Triglyceride [Mass/Vol] 137 mg/dL Normal <=150 [facility] Comment on above: Performed By: #### L IPID, CMP #### [facility] [address] [address] [address] Citlalli Schmidt VLDL CALC 27.4 mg/dL Normal [facility] Comment on above: Performed By: #### L IPID, CMP #### [facility] [address] [address] [address] Citlalli Schmidt MICROALBUMIN, RAND URon - mALB 1.8 mg/L Normal <=30.0 [facility] Comment on above: Performed By: #### M ALBR #### [facility] [address] [place] [address] Dr. Citlalli Schmidt PROF 14(COMP METB)on 022 Albumin [Mass/Vol] 3.6 g/dL Normal 3.4-5.0 [facility] Comment on above: Performed By: #### L IPID, CMP #### [facility] [address] [place] [address] Dr. Citlalli Schmidt Albumin/Globulin [Mass ratio] 1.0 {ratio} Normal [facility] Comment on above: Performed By: #### L IPID, CMP #### [facility] [address] [place] [address] Dr. Citlalli Schmidt ALP [Catalytic activity/Vol] 78 U/L Normal 46-116 [facility] Comment on above: Performed By: #### L IPID, CMP #### [facility] [address] [place] [address] Dr. Citlalli Schmidt ALT [Catalytic activity/Vol] 21 U/L Normal 14-59 [facility] Comment on above: Performed By: #### L IPID, CMP #### [facility] [address] [place] [address] Dr. Citlalli Schmidt Anion gap [Moles/Vol] 11.2 mmol/L Normal [facility] Comment on above: Performed By: #### L IPID, CMP #### [facility] [address] [address] [address] Citlalli Schmidt AST [Catalytic activity/Vol] 16 U/L Normal 15-37 [facility] Comment on above: Performed By: #### L IPID, CMP #### [facility] [address] [address] [address] Citlalli Schmidt Bilirubin [Mass/Vol] 1.3 mg/dL Critically high 0.2-1.0 [facility] Comment on above: Performed By: #### L IPID, CMP #### [facility] [address] [address] [address] Citlalli Schmidt Calcium [Mass/Vol] 9.4 mg/dL Normal 8.5-10.1 [facility] Comment on above: Performed By: #### L IPID, CMP #### [facility] [address] [place] [address] Dr. Citlalli Schmidt Chloride [Moles/Vol] 104 mmol/L Normal 98-107 [facility] Comment on above: Performed By: #### L IPID, CMP #### [facility] [address] [place] [address] Dr. Citlalli Schmidt CO2 [Moles/Vol] 29.2 mmol/L Normal 21.0-32.0 [facility] Comment on above: Performed By: #### L IPID, CMP #### [facility] [address] [place] [address] Dr. Citlalli Schmidt Creatinine [Mass/Vol] 0.82 mg/dL Normal 0.55-1.02 [facility] Comment on above: Performed By: #### L IPID, CMP #### [facility] [address] [address] [address] Citlalli Schmidt EGFR-AF CYMRAES >60 Normal >=60 [facility] Comment on above: Performed By: #### L IPID, CMP #### [facility] [address] [place] [address] Dr. Citlalli Schmidt EGFR-NON AF CYMRAES >60 Normal >=60 [facility] Comment on above: Performed By: #### L IPID, CMP #### [facility] [address] [address] [address] Citlalli Schmidt Globulin (S) [Mass/Vol] 3.5 g/dL Normal [facility] Comment on above: Performed By: #### L IPID, CMP #### [facility] [address] [address] [address] Citlalli Schmidt Glucose [Mass/Vol] 122 mg/dL Critically high 74-106 [facility] Comment on above: Performed By: #### L IPID, CMP #### [facility] [address] [address] [address] Citlalli Schmidt Potassium [Moles/Vol] 4.4 mmol/L Normal 3.5-5.1 [facility] Comment on above: Performed By: #### L IPID, CMP #### [facility] [address] [place] [address] Dr. Citlalli Schmidt Protein [Mass/Vol] 7.1 g/dL Normal 6.4-8.2 [facility] Comment on above: Performed By: #### L IPID, CMP #### [facility] [address] [place] [address] Dr. Citlalli Schmidt Sodium [Moles/Vol] 140 mmol/L Normal 136-145 [facility] Comment on above: Performed By: #### L IPID, CMP #### [facility] [address] [address] [address] Citlalli Schmidt Urea nitrogen [Mass/Vol] 17.0 mg/dL Normal 7.0-18.0 [facility] Comment on above: Performed By: #### L IPID, CMP #### [facility] [address] [address] [address] Citlalli Schmidt Urea nitrogen/Creatinine [Mass ratio] 20.7 mg/mg Normal [facility] Comment on above: Performed By: #### L IPID, CMP #### [facility] [address] [place] [address] Dr. Citlalli Schmidt SCREENING MAMMOGRAM W/BASIM, BILATERAL*on 07-20-2021 SCREENING MAMMOGRAM W/BASIM, BILATERAL* CLINICAL HISTORY: Screening Mammogram COMPARISON: Priors from 2020, 2019, 2018, 2017 TECHNIQUE: 2D and 3D mammogram imaging of both breasts was performed. RESULT: DENSITY: There are scattered areas of fibroglandular density. There is no suspicious mass, asymmetry, architectural distortion, or calcification. No significant change since the prior mammograms. IMPRESSION: BIRADS 1 : NEGATIVE, NORMAL INTERVAL FOLLOW UP FOLLOW-UP: 12 months DENSITY: Scattered MAMMOGRAPHY IS VERY IMPORTANT TO YOUR HEALTH. THE CURRENT [place] [employer] OF [employer] AND [employer] COM[employer]WORK GUIDELINES RECOMMENDS ANNUAL MAMMOGRAPHY BEGINNING AT AGE 40 THIS FACILITY USES A REMINDER SYSTEM TO ENSURE ALL PATIENTS RECEIVE REMINDER NOTIFICATIONS AT THE APPROPRIATE TIME BASED ON THE RECOMMENDATIONS OF THIS EXAM. Board Certified Radiologist. Accredited by the ACR and FDA. Report reported and signed by Tony Garcia on 07/23/2021 1102 Normal [facility] Prep[employer] Supervisor CT CHEST WO CONon 07-17-2021 CT CHEST WO CON EXAMINATION: CT CHEST WO CON HISTORY: Solitary nodule of lung COMPARISON: No relevant comparison available. TECHNIQUE: Axial, Coronal, and Sagittal images were created without the administration of IV contrast material. Dose reduction techniques were achieved by using automated exposure control and/or adjustment of mA and/or kV according to patient size and/or use of iterative reconstruction technique. FINDINGS: LUNGS: Several nodules within the right lower lobe, largest is within the lateral right lung base, 7 mm. 6 mm nodule within right middle lobe. Largest nodule on left is near the upper lobe apex, 5 mm. Trace amount of atelectasis versus infiltrate within right lower lobe. PLEURA: No mass, effusion, or pneumothorax. VASCULATURE: No abnormality. ANGIE: No mass or adenopathy. MEDIASTINUM: No mass or adenopathy. CARDIAC: Atherosclerotic coronary artery disease. No enlargement or pericardial thickening. AORTA: Borderline mild dilation of the ascending aorta, 4.0 cm. CHEST WALL: No mass or axillary adenopathy. BONES: No bone lesion or fracture. LIMITED ABDOMEN: A few small round hypodensities within liver is suspected represent cysts or hemangiomas. Limited images of the upper abdomen. OTHER: Negative. IMPRESSION: 1. Several rounded nonspecific nodules scattered within the lungs, largest 7 mm. No comparison studies. Consider follow-up imaging at 3, 6, 12, 24 months to document stability. 2. Trace amount of right lower lobe atelectasis versus infiltrates. Electronically authenticated by: DARIEL VARGHESE Date: 2021-07-17 09:50 Normal [facility] Tobacco Screening.on 022 Fall risk assessment a) No falls within the last year -[place] [employer] 250 DO Work Phone: Tobacco use status CP b) No -[facility] [employer] 250 DO Work Phone: Vital Signs Date Time Vital Sign Value Performing Clinician Facility 10-24-2022 08:30-0400 Body height 160.02 cm Arabella Marquez Other [facility] Other 10-24-2022 08:30-0400 Body mass index (BMI) [Ratio] 28.34 kg/m2 Arabella Marquez Other [facility] Other 10-24-2022 08:30-0400 Body temperature 97.1 [degF] Arabella Marquez Other [facility] Other 10-24-2022 08:30-0400 Body weight 72.58 kg Arabella Marquez Other [facility] Other 10-24-2022 08:30-0400 Diastolic blood pressure 80 mm[Hg] Arabella Marquez Other [facility] Other 10-24-2022 08:30-0400 Respiratory rate 16 /min Arabella Marquez Other [facility] Other 10-24-2022 08:30-0400 SaO2% (BldA) [Mass fraction] 97 % Arabella Marquez Other [facility] Other 10-24-2022 08:30-0400 Systolic blood pressure 126 mm[Hg] Arabella Marquez Other [facility] Other 04-23-2022 09:10-0500 Body height 160.02 cm Arabella Marquez Other [facility] Other 04-23-2022 09:10-0500 Body mass index (BMI) [Ratio] 29.93 kg/m2 Arabella Marquez Other [facility] Other 04-23-2022 09:10-0500 Body temperature 97.3 [degF] Arabella Marquez Other [facility] Other 04-23-2022 09:10-0500 Body weight 76.66 kg Arabella Marquez Other [facility] Other 04-23-2022 09:10-0500 Diastolic blood pressure 88 mm[Hg] Arabella Marquez Other [facility] Other 04-23-2022 09:10-0500 Respiratory rate 18 /min Arabella Marquez Other [facility] Other 04-23-2022 09:10-0500 SaO2% (BldA) [Mass fraction] 98 % Arabella Marquez Other [facility] Other 04-23-2022 09:10-0500 Systolic blood pressure 138 mm[Hg] Arabella Marquez Other [facility] Other 01-28-2022 14:28-0400 Body height 160.02 cm Arabella Marquez Work Phone: [place] [employer] 250 DO Work Phone: 01-28-2022 14:28-0400 Body mass index (BMI) [Ratio] 30.82 kg/m2 Arabella Marquez Work Phone: [place] [employer] 250 DO Work Phone: 01-28-2022 14:28-0400 Body surface area Derived from formula 1.82 m2 Arabella Marquez Work Phone: [facility] 250 DO Work Phone: 01-28-2022 14:28-0400 Body weight 78.93 kg Arabella Marquez Work Phone: [facility] 250 DO Work Phone: 01-28-2022 14:28-0400 Diastolic blood pressure 70 mm[Hg] Arabella Marquez Work Phone: [facility] 250 DO Work Phone: 01-28-2022 14:28-0400 Heart rate 68 /min Arabella Marquez Work Phone: [facility] 250 DO Work Phone: 01-28-2022 14:28-0400 Systolic blood pressure 124 mm[Hg] Arabella Marquez Work Phone: [facility] 250 DO Work Phone: 12-17-2021 09:45-0400 65 1 Arabella Marquez Work Phone: [facility] [address] [place] Work Phone: Comment on above: [id number] 10-16-2021 09:10-0400 Body height 160.02 cm Arabella Marquez Other [employer] [facility] [employer] Other 10-16-2021 09:10-0400 Body mass index (BMI) [Ratio] 29.76 kg/m2 Arabella Marquez Other [facility] Other 10-16-2021 09:10-0400 Body temperature 97.4 [degF] Arabella Marquez Other [facility] Other 10-16-2021 09:10-0400 Body weight 76.2 kg Arabella Marquez Other [facility] Other 10-16-2021 09:10-0400 Diastolic blood pressure 74 mm[Hg] Arabella Marquez Other [facility] Other 10-16-2021 09:10-0400 Respiratory rate 16 /min Arabella Marquez Other [facility] Other 10-16-2021 09:10-0400 SaO2% (BldA) [Mass fraction] 98 % Arabella Marquez Other [facility] Other 10-16-2021 09:10-0400 Systolic blood pressure 132 mm[Hg] Arabella Marquez Other [facility] Other 04-18-2021 09:10-0500 Body height 160.02 cm Arabella Marquez Other [facility] Other 04-18-2021 09:10-0500 Body mass index (BMI) [Ratio] 29.05 kg/m2 Arabella Marquez Other [facility] Other 04-18-2021 09:10-0500 Body temperature 97 [degF] Arabella Marquez Other [facility] Other 04-18-2021 09:10-0500 Body weight 74.39 kg Arabella Marquez Other [facility] Other 04-18-2021 09:10-0500 Diastolic blood pressure 82 mm[Hg] Arabella Marquez Other [facility] Other 04-18-2021 09:10-0500 Respiratory rate 16 /min Arabella Marquez Other [facility] Other 04-18-2021 09:10-0500 SaO2% (BldA) [Mass fraction] 96 % Arabella Marquez Other [facility] [employer] Other 04-18-2021 09:10-0500 Systolic blood pressure 134 mm[Hg] Arabella Marquez Other [facility] [employer] Other 04-17-2021 13:30-0500 Body height 160.02 cm Arabella Marquez [facility] 250 DO Work Phone: 04-17-2021 13:30-0500 Body mass index (BMI) [Ratio] 29.41 kg/m2 Arabella Marquez [facility] 250 DO Work Phone: 04-17-2021 13:30-0500 Body surface area Derived from formula 1.79 m2 Arabella Marquez [facility] 250 DO Work Phone: 04-17-2021 13:30-0500 Body weight 75.3 kg Arabella Marquez [facility] 250 DO Work Phone: 04-17-2021 13:30-0500 Diastolic blood pressure 76 mm[Hg] Arabella Marquez [facility] 250 DO Work Phone: 04-17-2021 13:30-0500 Heart rate 72 /min Arabella Marquez [facility] 250 DO Work Phone: 04-17-2021 13:30-0500 Systolic blood pressure 118 mm[Hg] Arabella Marquez [facility] 250 DO Work Phone: 04-13-2021 09:41-0500 6.6 1 [facility] Work [facility]: Comment on above: [id number] 04-13-2021 09:41-0500 89 1 Arabella Moise [facility] [employer] Work Phone: Comment on above: [id number] Encounters Encounter Date Encounter Type Care Provider Facility Start: 01-06-2023 End: 01-06-2023 ambulatory Arabella Marquez Other [facility] Other Start: 01-06-2023 Telephone encounter Arabella Marquez [facility] Start: 01-03-2023 End: 01-03-2023 ambulatory Arabella Marquez Other [facility] Other Start: 01-03-2023 Telephone encounter Arabella Marquez [facility] [place] Start: 10-29-[address] Arabella Marquez Facility: Start: 10-28-2022 End: 10-28-2022 ambulatory Arabella Marquez Other [facility] Other Start: 10-28-2022 Telephone encounter Arabella Marquez [facility] Start: 10-24-2022 End: 10-24-2022 ambulatory Arabella Marquez Other [facility] Other Start: 10-24-2022 Office outpatient visit 25 minutes Arabella Marquez [facility] Start: 07-10-2022 End: 07-10-2022 ambulatory Arabella Marquez Other [facility] Other Start: 07-10-2022 Telephone encounter Arabella Marquez [facility] [place] Start: 05-14-2022 End: 05-14-2022 ambulatory Arabella Marquez Other [facility] Other Start: 05-14-2022 Telephone encounter Arabella Marquez [facility] Start: 04-23-2022 End: 04-23-2022 ambulatory Arabella Marquez Other [facility] Other Start: 04-23-2022 Office outpatient visit 25 minutes Arabella Marquez [facility] [place] Start: 04-23-2022 Telephone encounter Arabella Marquez [facility] Start: 04-18-2022 End: 04-19-[address] ARABELLA MARQUEZ Facility:H1 Start: 02-04-2022 End: 02-04-2022 ambulatory Arabella Marquez Other [facility] Other Start: 02-04-2022 Telephone encounter Arabella Marquez [facility] [place] Start: 01-28-2022 Office outpatient visit 25 minutes Arabella Marquez Work Phone: [facility] 250 DO Work Phone: Start: 01-28-[address] Maria De Jesus Green Facility:[id number] Start: 01-11-2022 End: 01-12-2022 ambulatory MARY ANNE STARKEY Facility:H1 Start: 12-17-2021 Patient encounter procedure Arabella Marquez Work Phone: [facility] [address] [place] Work Phone: Start: 12-17-[address] Lynn Green Facility:[id number] Start: 10-16-2021 End: 10-16-2021 ambulatory Arabella Marquez Other [facility] Other Start: 10-16-2021 Office outpatient visit 25 minutes Arabella Marquez [facility] Start: 10-12-2021 End: 10-13-[address] ARABELLA MARQUEZ Facility:H1 Start: 07-17-2021 Telephone encounter Arabella Marquez [facility] Start: 07-17-2021 End: 07-18-[address] ARABELLA MARQUEZ [place] [employer] Other Start: 06-29-2021 End: 06-29-2021 ambulatory Arabella Marquez Other [facility] Other Start: 06-29-2021 Telephone encounter Arabella Marquez [facility] Start: 06-27-2021 End: 06-27-2021 ambulatory Arabella Marquez Other [facility] Other Start: 06-27-2021 Telephone encounter Arabella Marquez [facility] Start: 04-18-2021 End: 04-18-2021 ambulatory Arabella Marquez Other [facility] [employer] Other Start: 04-18-2021 Office outpatient visit 25 minutes Arabella Marquez [facility] Start: 04-17-2021 Office outpatient visit 25 minutes Arabella Marquez [facility] 250 DO Work Phone: Start: 01-22-2018 Patient encounter procedure MARIA DE JESUS GREEN Facility:[id number] Procedures Date Procedure Procedure Detail Performing Clinician Start: 12-17-2021 Echocardiography Arabella Marquez Work Phone: Start: 01-30-2016 Total colonoscopy Arabella Marquez Ligation of fallopian tube D avid Suma Marquez Procedure on neck Arabella Moise [facility] Renal lithotripsy Arabella Moise Gi r[facility] Plan of Treatment Date Care Activity Detail Author Start: 10-29-2022 FUV, Provider: Maria De Jesus Green, Status: Pen, Time: 2:00 PM FUV, Provider: Maria De Jesus Green, Status: Pen, Time: 2:00 PM [facility] 250 DO Work Phone: Start: 01-28-2022 FUV, Provider: Maria De Jesus Green, Status: Pen, Time: 2:30 PM FUV, Provider: Maria De Jesus Green, Status: Pen, Time: 2:30 PM [facility] [address] [place] Work Phone: Start: 12-07-2021 FUV, Provider: Maria De Jesus Green, Status: Pen, Time: 8:40 AM [facility]UV, Provider: Maria De Jesus Green, Status: Pen, Time: 8:40 AM [facility] 250 DO Work Phone: Start: 10-30-2021 ECHO, Provider: FINESSE RAPP [employer] ,[id number], Status: Pen, Time: 7:45 AM ECHO, Provider: CHERELLE QUICKI [facility] 01,[id number], Status: Pen, Time: 7:45 AM [facility] 250 DO Work Phone: Immunizations Immunization Date Immunization Notes Care Provider Rosalba mancilla 02-09-2021 Pfizer-BioNTech COVID-19 Vacc 30 MCG/0.3ML Intramuscular Suspension Arabella Marquez [facility] 250 DO Work Phone: 06-15-2020 Pfizer-BioNTech COVID-19 Vacc 30 MCG/0.3ML Intramuscular Suspension Arabella Marquez [facility] 250 DO Work Phone: 05-25-2020 Pfizer-BioNTech COVID-19 Vacc 30 MCG/0.3ML Intramuscular Suspension Arabella Marquez [facility] 250 DO Work Phone: 02-25-2020 influenza, seasonal, injectable Arabella Marquez Other [facility] Other 02-25-2020 influenza, injectable, quadrivalent, contains preservative Arabella Marquez [facility] 250 DO Work Phone: 12-27-2019 influenza, seasonal, injectable Arabella Marquez Other [facility] Other 03-06-2018 pneumococcal conjugate vaccine, 13 valent Arabella Marquez [facility] 250 DO Work Phone: 01-02-2018 pneumococcal conjugate vaccine, 13 valent Arabella Marquez [facility] 250 DO Work Phone: NEGATED: Highlighted row has not occurred!01-08-2019 influenza, seasonal, injectable Patient Objection Arabella Marquez Other [facility] Other Payers Date Payer Category Payer [facility] [id number] 2022 Medicare [id number] 1959 Private Health Insurance [id number] 1950 Unknown [id number] 1952 Unknown [id number] 1952 Unknown [id number] 1952 Unknown [id number] 1952 Unknown [id number] 1952 Unknown [id number] 1952 Unknown [id number] 1952 Unknown [id number] Private Health Insurance [id number] Unknown [employer] Social History Date Type Detail Facility No illicit drug use No illicit drug use [place] [id number] DO Work Phone: Sex Assigned At Sex Assigned At Bir th [facility] Other Clinical Notes 10-11-2009 to 01-03-2023 Note Date & Type Note Facility 01-03-2023 Evaluation note Encounter Date Diagnosis Assessment Notes Dec, Hyperlipidemia (ICD-10 - E78.5) [facility] Other [id number] Evaluation note* Encounter Date Diagnosis Assessment Notes Treatment Notes Treatment Clinical Notes Sep, Hyperlipidemia (ICD-10 - E78.5) Discussed cholesterol results with patient today. Total is 168. HDL is 59. LDL is 85.6. Triglycerides are 117. I would like her to continue with above medication daily. Watch intake of carbs and sugars. Stay active. Sep, Diabetes mellitus, type 2 (ICD-10 - E11.9) Discussed blood sugar results with patient today. Glucose is 111. HgA1C is down from 6.4 to 6.3. She admits to eating alot of candy because she is traveling and found a candy shop she likes. I did recommend that she cut back on her candy intake but her A1C has improved. She is to watch her intake of carbs. Stay active. Sep, Hypertension (ICD-10 - I10) Blood pressure is controlled, continue with above medication daily. Sep, Paresthesia (ICD-10 - R20.2) bilateral feet Sometimes when she touches her last three toes of her left foot they will hurt. She likes to sit on her foot only one at a time (not style) and once in awhile it will tingle on the top of the foot. Her feet do not constantly hurt. When she puts her shoes on her great toes on each foot will bother her. Her dad had neuropathy and she is concerned that she may be developing this as well. We discussed diabetic neuropathy today. I did recommend she have an EMG done to rule out abnormalities. She does agree to this. I would like Dr. Bradley to do the EMG. Order provided. Sep, Low hemoglobin (ICD-10 - D64.9) We discussed that her hemoglobin has gone down from 13.9 to 12.7. She does not see any blood in her urine or stool. She is not due to have a colonoscopy again until 2025. She is not anemic but her trend is going down. I would like her to do a FOBT test. Guidance was given on how to collect the sample. She can call for the results 1-2 days after dropping the sample off for development. She must take the sample to the main campus lab within 2 hours of collection. In one month she needs to have a CBC drawn to be sure her hemoglobin has not gone down further. She can call for results. Sep, Weight loss (ICD-10 - R63.4) She has lost 9 pounds since last seen. She voices that she is doing alot of traveling to [place] to visit her daughter and grandkids now that she has retired and her daughter does not cook for her or cook at all and she does not cook much either. She voices that one day she had Chex Mix and candy and that was all. She will continue to monitor. If she finds that her weight continues to go down then she is asked to let me know right away. She feels she could eat if she wanted to, she does avoid certain meats. Right now she does not want to eat hamburger but contributes that to her mouth issues. Certain textures bother her. Sep, Depression (ICD-10 - F32.9) She does continue to use and benefit from the above medication daily. 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 Sep, Allergic rhinitis (ICD-10 - J30.9) Continue with above medication as needed. Sep, Lacunar infarction (ICD-10 - I63.81) She is taking a low dose ASA at this time. Sep, Macrocytosis (ICD-10 - D75.89) She voices that she is doing a lot of traveling and she will be gone for two weeks at a time when she is gone. When she is traveling she does not take her B12. Prior to her lab draw she took two B12 tablets. Her Vitamin B12 level is 584. Folate is 25.10. Sep, Cardiomyopathy (ICD-10 - I42.9) She has an appointment to see Dr. Green on 10-29-22. Sep, Other intermediate frame tender (current) drug therapy (ICD-10 - Z79.899) Sep, Foot pain (ICD-10 - M79.673) bilateral Will order an EMG to rule out abnormalities. Her left foot is worse so I will order an x-ray of her left foot. She can call for results. [facility] Other 05-09-2023 History general Narrative - Reported* Type Description Date Medical History Mammogram 08/06 Medical History Stress test 2007 [facility]i Medical History PAP [facility] Medical History EMG (carpal tunnel in left wrist ) Medical History 06/07 HgbA1C 6.8 Medical History 10/11/09 HgbA1C 6.7, CMP, Urine C ulture, Lipid Medical History Refused Colonoscopy 11-21-10 Medical History Nuclear med scan 05/08/11 Medical History blood work 05/21/11 Medical History Refused colonoscopy, Seracult ca rds x3 02-27-12 Medical History Refused colonoscopy, 09-09-12 Medical History Refused colonoscopy and Seracult cards x3- 03-10-13 Medical History Refuses Colonoscopy and Seracult cards 10-20-13 Medical History Refuses Colonoscopy and Seracult card x1 04-20-14 Medical History Refuses Colonoscopy and Seracult card x1 11-23-14 Medical History COVID 01/2022 Surgical History D&C 2004 Surgical History hearing aids 12/11/15 Surgical History colonoscopy [facility]- normal, needs repeat in 10 years (2025) 02/2016 Surgical History mammogram - [facility] 03/[address] Yoder kidney stones Surgical History ECHO 01/22/18 Hospitalization History see above surgical histo ry [facility] Other 03-10-2023 History general Narrative - Reported* Type Description Date Medical History Mammogram 08/06 Medical History Stress test 2007 Tr[facility]i Medical History PAP -2007 [facility] Medical History EMG (carpal tunnel in left wrist ) Medical History 06/07 HgbA1C 6.8 Medical History 10/11/09 HgbA1C 6.7, CMP, Urine C ulture, Lipid Medical History Refused Colonoscopy 11-21-10 Medical History Nuclear med scan 05/08/11 Medical History blood work 05/21/11 Medical History Refused colonoscopy, Seracult ca rds x3 02-27-12 Medical History Refused colonoscopy, 09-09-12 Medical History Refused colonoscopy and Seracult cards x3- 03-10-13 Medical History Refuses Colonoscopy and Seracult cards 10-20-13 Medical History Refuses Colonoscopy and Seracult card x1 04-20-14 Medical History Refuses Colonoscopy and Seracult card x1 11-23-14 Medical History COVID 01/2022 Surgical History D&C 2004 Surgical History hearing aids 12/11/15 Surgical History colonoscopy [facility]- normal, needs repeat in 10 years (2025) 02/2016 Surgical History mammogram - [facility] 03/[address] Yoder kidney stones Surgical History ECHO 01/22/18 Hospitalization History see above surgical histo ry [facility] Other 02-14-2023 Evaluation note* Encounter Date Diagnosis Assessment Notes Treatment Notes Treatment Clinical Notes May, Diabetes mellitus, type 2 (ICD-10 - E11.9) May, Glossodynia (ICD-10 - 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 Total is 165. HDL is 58. LDL is 78.8. Triglycerides are 141. VLDL is 28.2. I would like her to continue with above medication, watch intake of carbs and sugars. Stay active. Mar, Diabetes mellitus, type 2 (ICD-10 - E11.9) Discussed blood sugar results with patient today. Glucose is 116. HgA1C is 6.4. She is encouraged to watch her intake of carbs and sugars. Stay active. Mar, Hypertension (ICD-10 - I10) Blood pressure is controlled. Continue with above medication daily as directed. Mar, Foot pain (ICD-10 - M79.673) left foot Discussed diabetic neuropathy today. She does not have tingling or pain on the bottom of her foot when she is standing. She voices that she walks fine, it is the top of her left foot that bothers her when she sits. On exam she is told that it is possible that she has arthritis that is causing the pain. She voices that she likes to sit on her feet and when she goes to stand she has the pain on the top of her foot. She has good pulse on exam. I did offer to provide her with an order for an x-ray and she refuses. She can feel light touch sensation on exam. She does not have any signs of peripheral neuropathy. I did recommend that she avoid sitting cross legged or sitting on her feet. If her feet begin to bother her when walking then she is to let me know and I will order an xray. Mar, Tachycardia (ICD-10 - R00.0) Her heart rate was 111 today. She voices that she feels anxious today being in the office. She does not drink coffee. I did recommend that she check her pulse and make sure that it is less than 100. She is to call me with a few different readings. I would expect it to be less than 100 when she is at home and not anxious. Mar, Macrocytosis (ICD-10 - D75.89) Her Vitamin B12 is 419. Folate is 24.4. She forgot to take B12 after she had COVID-19 and just restarted it after she had lab work drawn recently. I did recommend that she take the B12 as directed. Mar, Depression (ICD-10 - F32.9) Continue with above medication daily as directed. Mar, Weight gain (ICD-10 - R63.5) She has gained one pound since last seen. Her TSH is normal at 1.444. 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 She voices that she never called the neurologist back to change her appointment and does not feel that she needs to see Dr. Contreras again. She voices that there are certain things she cannot eat so she has to watch what she eats. Nothing changed after she had COVID-19. Mar, Allergic rhinitis (ICD-10 - J30.9) She voices that despite taking Singulair and allergy medication she continues to have sinus drainage. When she goes to her kids home it is worse. Mar, Other halfway (current) drug therapy (ICD-10 - Z79.899) Mar, Nocturia (ICD-10 - R35.1) She did have all of her kidney stones removed by Dr. Yoder. She voices that everything has been good since. He wanted her to have a KUB done and recheck with him in one year. Mar, Proteinuria (ICD-10 - R80.9) Mar, Lacunar infarction (ICD-10 - I63.81) Continue with above medication daily as directed. Mar, Cardiomyopathy (ICD-10 - I42.9) She did see Dr. Green since last seen (December 2021), no changes were made. Her ejection fraction was 65% which is good. He wanted to see her back in nine months. Mar, Pulmonary nodule (ICD-10 - R91.1) She did see Dr. Starkey in the fall of 2021 and he advised her that there was no change in the size or number of the pulmonary nodule. He will see her back in one year. He put her on Singulair and she is still taking it but it does not help her. Mar, Other She had COVID-1 9 in January (2021) so I did recommend that she get the bivalent vaccine in May-June (2022) if the numbers are high, if they are low then she can wait until the fall to get the bivalent vaccine. I did recommend that she get the Flu vaccine and Pneumonia vaccine at her local retail pharmacy. [facility] Other 07-19-2022 Evaluation note* Encounter Date Diagnosis Assessment Notes Treatment Notes Treatment Clinical Notes Sep, Hypertension (ICD-10 - I10) Blood pressure is controlled. Continue with above medication daily as directed. Sep, Diabetes type 2, controlled (ICD-10 - E11.9) Discussed blood sugar results with patient today. Glucose is 122. HgA1C is 6.4. I did recommend that she continue to monitor her intake of carbs and sugars. Stay active. The Metformin is helping her sugar control. Sep, Hyperlipidemia (ICD-10 - E78.5) Discussed cholesterol results with patient today. Total is 175. HDL is 53. LDL is 94.6. Triglycerides are 137. Readings are at goal. Continue to monitor intake of carbs and sugars. Stay active. Sep, Allergic rhinitis (ICD-10 - J30.9) She voices that she used to take Zyrtec then switched to Nita then went back to Zyrtec but it did not seem to work so she is not using anything. At times she has alot of pressure in her face and at night she has alot of sinus drainage. I did recommend that she begin using a steroid nasal spray like Flonase or Nasacort nasal spray. This medication is a topical steroid that brings down inflammation and decreases inflammation and opens things up. She can buy this OTC. She should use this when the ground thaws until the ground freezes. Guidance is given on how to use the nasal spray. Use in the morning versus evening due to letdown effect. Sep, Macrocytosis (ICD-10 - D75.89) We discussed that the Metformin she is taking can cause the body not to absorb B12 and it appears she is B12 deficient. I would like her to begin taking B12 every other day. Sep, Pulmonary nodule (ICD-10 - R91.1) She did see Dr. Starkey for evaluation and will have a repeat CT scan done in December (2021). She is comfortable with this and returning to see him for evaluation. Sep, Depression (ICD-10 - F32.9) She continues with above medication daily as directed. Sep, Weight gain (ICD-10 - R63.5) She has gained four pounds since last seen. She voices that she eats alot of ice cream because she loves it. Sep, Other halfway (current) drug therapy (ICD-10 - Z79.899) Sep, Lacunar infarction (ICD-10 - I63.81) She has an appointment in November (2021) to see Dr. Contreras, but voices that their office has been calling her to reschedule this appointment but she has not called them back. I did explain to her that he is leaving the practice so she will likely need to reschedule with someone else. 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 Sep, Cardiomyopathy (ICD-10 - I42.9) Continue with above medication, follow with manager market development as directed. She voices that she will see Dr. Green in the fall. Sep, Other She saw Dr. Yoder last month who removed a kidney stone from the left side. She will continue to follow with him and will see him in November (2021). [facility] Other 05-09-2022 History general Narrative - Reported* Type Description Date Medical History Mammogram 08/06 Medical History Stress test 2007 Tr[facility]i Medical History PAP -2007 [facility] Medical History EMG (carpal tunnel in left wrist ) Medical History 06/07 HgbA1C 6.8 Medical History 10/11/09 HgbA1C 6.7, CMP, Urine C ulture, Lipid Medical History Refused Colonoscopy 11-21-10 Medical History Nuclear med scan 05/08/11 Medical History blood work 05/21/11 Medical History Refused colonoscopy, Seracult ca rds x3 02-27-12 Medical History Refused colonoscopy, 09-09-12 Medical History Refused colonoscopy and Seracult cards x3- 03-10-13 Medical History Refuses Colonoscopy and Seracult cards 10-20-13 Medical History Refuses Colonoscopy and Seracult card x1 04-20-14 Medical History Refuses Colonoscopy and Seracult card x1 11-23-14 Surgical History D&C 2004 Surgical History hearing aids 12/11/15 Surgical History colonoscopy [facility]- normal, needs repeat in 10 years (2025) 02/2016 Surgical History mammogram - [facility] 03/[address] Yoder kidney stones Surgical History ECHO 01/22/18 Hospitalization History see above surgical histo ry [facility] Other 05-06-2022 NoteHISTORY: Bone density screening. COMPARISON: None. PROCEDURE: Imaging of the lumbar spine and bilateral hips was obtained for bone density evaluation. FINDINGS: REGION BMD (g/cm??) YOUNG ADULT T-SCORE AGE-MATCHED Z-SCORE LEFT NECK 0.628 -2.0 -0.2 RIGHT NECK 0.674 -1.6 0.2 LUMBAR (L1-L4) 1.010 -0.3 1.7 The mean BMD and corresponding T-score listed above indicate: Osteopenia and places the patient at a mild to moderate increased risk for fracture. There may be a future risk of developing osteoporosis. Recommend follow-up exam in 1 year, sooner as clinically necessary. 10 year fracture risk for major osteoporotic fracture of 11% and hip fracture of 2.0% according to FRAX score Comment: The T-score is the primary focus of the interpretation of a patient???s bone mineral density measurement. The T-score is the number of standard deviations and individual is above or below the mean value for a young female having normal bone mass. The WHO defines osteoporosis based on the T-score value: +1.0 to -0.9 : Normal bone mass -1.0 to -2.5 : Osteopenia and thus may be at future risk of fracture. -2.6 to -5.0 : Osteoporosis and at significantly increased risk of fracture. IMPRESSION: OSTEOPENIA : ONE YEAR FOLLOW-UP RECOMMENDED Report reported and signed by Tony Garcia on 08/06/2021 [id number]04-19-[facility] Evaluation note* Encounter Date Diagnosis Assessment Notes Treatment Notes Treatment Clinical Notes Jun, Pulmonary nodule (ICD-10 - R91.1) [facility] Other 04-01-2022 Evaluation note* Encounter Date Diagnosis Assessment Notes Treatment Notes Treatment Clinical Notes Jun, Pulmonary nodule (ICD-10 - R91.1) I did independently review the CT scan of the abdomen and pelvis results with her today that was ordered by Dr. Yoder. I explained that there is a right lower lobe pulmonary nodule seen measuring 7 mm previously 6 mm (according to their last scan from 2017). I did recommend that we obtain a CT scan of the chest without contrast to evaluate this further. She does agree to this. I explained to her that this nodule did not say it was calcified, something that is not calcified needs to be watched until it is calcified. She may need to see a rail setter to discuss when she should have another CT scan done, I would likely refer her to Dr. Starkey. She is agreeable to this if it is necessary. She has never been a smoker but is exposed to second hand smoke and has been for years (her ). Jun, Other 9:58 AM -10:08 AM [facility] Other 03-10-2022 History general Narrative - Reported* Type Description Date Medical History Mammogram 08/06 Medical History Stress test 2007 [facility] Medical History PAP -2007 [facility] Medical History EMG (carpal tunnel in left wrist ) Medical History 06/07 HgbA1C 6.8 Medical History 10/11/09 HgbA1C 6.7, CMP, Urine C ulture, Lipid Medical History Refused Colonoscopy 11-21-10 Medical History Nuclear med scan 05/08/11 Medical History blood work 05/21/11 Medical History Refused colonoscopy, Seracult ca rds x3 02-27-12 Medical History Refused colonoscopy, 09-09-12 Medical History Refused colonoscopy and Seracult cards x3- -02-10 Medical History Refuses Colonoscopy and Seracult cards 10-20-13 Medical History Refuses Colonoscopy and Seracult card x1 04-20-14 Medical History Refuses Colonoscopy and Seracult card x1 11-23-14 Surgical History D&C 2004 Surgical History hearing aids 12/11/15 Surgical History colonoscopy [facility]- normal, needs repeat in 10 years (2025) 02/2016 Surgical History mammogram - [facility] 03/[address] Yoder kidney stones Surgical History ECHO 01/22/18 Hospitalization History see above surgical histo ry [facility] Other 01-19-2022 Evaluation note* Encounter Date Diagnosis Assessment Notes Treatment Notes Treatment Clinical Notes Mar, Hyperlipidemia (ICD-10 - E78.5) Discussed cholesterol results with patient today. Total is 180. HDL is 63. LDL is 89. Triglycerides are 140. Readings are at goal. She is to continue with the above medication daily as directed. Mar, Diabetes type 2, controlled (ICD-10 - E11.9) Discussed blood sugar results with patient today. Glucose is 135. HgA1C is 6.6. She admits she likes to eat cookies and sweets. I did recommend that she cut back on her intake of carbs and sugars. Stay active. I did discuss adding medication to her daily regimen but she voices that she can do better with her diet. She did alot of traveling since last seen and admits she missed alot of her evening doses of Metformin. Encouraged her to make lifestyle changes that she can continue with it. Mar, Hypertension (ICD-10 - I10) Blood pressure is controlled. Continue with above medication daily as directed. Mar, Hematuria (ICD-10 - R31.9) She has seen Dr. Yoder in the past, voices that the last time she was there she saw either a nurse practitioner or a physicians assistant professor of philosophy. She normally gets a letter once a year to schedule a follow up but does not recall the last time she got one. She has a history of kidney stones. Because there is blood in her urine I did recommend that she call Dr. Yoder and schedule an appointment to be seen. She is agreeable and will call that office. I will fax a copy of her urinalysis to Dr. Yoder. Mar, Depression (ICD-10 - F32.9) She does continue to use and benefit from the Effexor. Mar, Weight loss (ICD-10 - R63.4) Her TSH is 1.288. Mar, Lacunar infarction (ICD-10 - I63.81) We discussed her ASA dose, Dr. Green lowered her dose from 325 MG to 81 MG daily. She started the ASA after she had a stroke. We discussed this today. It has come to light that a baby ASA is fine from a cardiology standpoint. ASA 325 MG is a better dose as far as stroke prevention. She is more comfortable staying on the 325 MG dose and voices that she has a large bottle at home so she is going to continue with the 325 MG dose daily. I did recommend that she continue with the 325 MG dose until she sees Dr. Contreras (May 2021) and then discuss this with him and see what his recommendation is. She voices understanding. 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 Contreras or his QA TEST LEAD/PA. She voices that she has an appointment in May (2021). Mar, Cardiomyopathy (ICD-10 - I42.9) She saw Dr. Green yesterday for evaluation. I will send a copy of her lab results to his office for review. He did order an echocardiogram to be done in October (2021) and will see him again in November (2021). Mar, Allergic rhinitis (ICD-10 - J30.9) She does continue to take above medication daily as directed. Mar, Other intermediate frame tender (current) drug therapy (ICD-10 - Z79.899) Mar, Elevated CO2 level (ICD-10 - R79.81) Her CO2 level is 31.6. We discussed that this could indicate sleep apnea. She voices that she wakes up alot during the night but does not believe she wakes up gasping for air. She feels rested when she gets up for the day. She can sit and watch a movie at night without falling asleep. She does not have clinical signs of sleep apnea. Will continue to monitor. [facility] Other 07-14-2010 History general Narrative - Reported* Type Description Date Medical History Mammogram 08/06 Medical History Stress test 2007 [facility]i Medical History PAP [facility] Medical History EMG (carpal tunnel in left wrist ) Medical History 06/07 HgbA1C 6.8 Medical History 10/11/09 HgbA1C 6.7, CMP, Urine C ulture, Lipid Medical History Refused Colonoscopy 11-21-10 Medical History Nuclear med scan 05/08/11 Medical History blood work 05/21/11 Medical History Refused colonoscopy, Seracult ca rds x3 02-27-12 Medical History Refused colonoscopy, 09-09-12 Medical History Refused colonoscopy and Seracult cards x3- 03-10-13 Medical History Refuses Colonoscopy and Seracult cards 7-14 Medical History Refuses Colonoscopy and Seracult card x1 1-15 Medical History Refuses Colonoscopy and Seracult card x1 11-23-15 Surgical History D&C 2004 Surgical History hearing aids 12/11/15 Surgical History colonoscopy [facility]- normal, needs repeat in 10 years (2025) 02/2016 Surgical History mammogram - [facility] 03/[address] Yoder kidney stones Surgical History ECHO 01/22/18 Hospitalization History see above surgical histo ry [facility] Other 07-14-2010 History general Narrative - Reported* Type Description Date Medical History Mammogram 08/06 Medical History Stress test 2007 [facility] Medical History PAP [facility] Medical History EMG (carpal tunnel in left wrist ) Medical History 06/07 HgbA1C 6.8 Medical History 10/11/09 HgbA1C 6.7, CMP, Urine C ulture, Lipid Medical History Refused Colonoscopy 11-21-10 Medical History Nuclear med scan 05/08/11 Medical History blood work 05/21/11 Medical History Refused colonoscopy, Seracult ca rds x3 02-27-12 Medical History Refused colonoscopy, 09-09-12 Medical History Refused colonoscopy and Seracult cards x3- -02-10 Medical History Refuses Colonoscopy and Seracult cards 7-14 Medical History Refuses Colonoscopy and Seracult card x1 04-20-14 Medical History Refuses Colonoscopy and Seracult card x1 15 Medical History COVID 01/2022 Surgical History D&C 2005 Surgical History hearing aids 12/11/15 Surgical History colonoscopy [facility]- normal, needs repeat in 10 years (2025) 02/2016 Surgical History mammogram - [facility] 03/[address] Yoder kidney stones Surgical History ECHO 01/22/18 Hospitalization History [facility] Other Evaluation [facility]No [facility] Other History of Present illness Narrative* Patient is here for follow-up continue management for previous evaluation for shortness of breath, mild cardiomyopathy, hypertension and hyperlipidemia. Left since last time I saw her she reports hasbeen feeling reasonably well. She discussed functional class II. She denies lightheadedness, dizziness or syncope. Her last echocardiogram raise the possibility of regional motion abnormality. Her remote stress test was negative. * ASSESSMENT: * 1. Mild shortness of breath and the patient with history of hypertensive heart disease. With known LV dysfunction chronically. Echo appears to suggest possible regional motion abnormality. Patient denies chest pain with LVEF around 45% based on echo back in 2017 * 2. Hypertension, controlled. * 3. cardiomyopathy, with ejection fraction of 45% * 4. Abnormal ECG demonstrating diffuse ST-T abnormality that clearly consistent with hypertensive heart disease. * 5. Hyperlipidemia, controlled. * 6. Mild obesity. * 7. Remote history of stroke with no residual deficits. * 8. Tongue soreness of unclear etiology she reported resolution * RECOMMENDATIONS: * 1. Patient was advised to continue present medical therapy * 2. We discussed ischemic evaluation but the patient declined based on lack of symptoms. However I did recommend to repeat her echocardiogram to reassess her LV systolic function and for regional motion abnormality * 3. We will try to retrieve her recent labs * 4. The patient was advised to lose weight, exercise, and I will see her back in the office in 9 months [facility] [address] DO Work Phone: History of Present illness Narrative* Patient is here for follow-up continue management for previous evaluation for shortness of breath, mild cardiomyopathy, hypertension and hyperlipidemia. Left since last time I saw her she reports hasbeen feeling reasonably well. She discussed functional class II. She denies lightheadedness, dizziness or syncope. Her last echocardiogram raise the possibility of regional motion abnormality. Her remote stress test was negative. * ASSESSMENT: * 1. Mild shortness of breath and the patient with history of hypertensive heart disease. With known LV dysfunction chronically. Echo appears to suggest possible regional motion abnormality. Patient denies chest pain with LVEF around 45% based on echo back in 2018 * 2. Hypertension, controlled. * 3. cardiomyopathy, with ejection fraction of 45% * 4. Abnormal ECG demonstrating diffuse ST-T abnormality that clearly consistent with hypertensive heart disease. * 5. Hyperlipidemia, controlled. * 6. Mild obesity. * 7. Remote history of stroke with no residual deficits. * 8. Tongue soreness of unclear etiology she reported resolution * RECOMMENDATIONS: * 1. Patient was advised to continue present medical therapy * 2. We discussed ischemic evaluation but the patient declined based on lack of symptoms. However I did recommend to repeat her echocardiogram to reassess her LV systolic function and for regional motion abnormality * 3. We will try to retrieve her recent labs * 4. The patient was advised to lose weight, exercise, and I will see her back in the office in 9 months [facility] Work Phone: History of Present illness Narrative* Patient is here for follow-up continue management for previous evaluation for shortness of breath, mild cardiomyopathy, hypertension and hyperlipidemia. Left since last time I saw her she reports hasbeen feeling reasonably well. She discussed functional class II. She denies lightheadedness, dizziness or syncope. Her last echocardiogram raise the possibility of regional motion abnormality. Her remote stress test was negative. * ASSESSMENT: * 1. Mild shortness of breath and the patient with history of hypertensive heart disease. With known LV dysfunction chronically. Echo appears to suggest possible regional motion abnormality. Patient denies chest pain with LVEF around 45% based on echo back in 2018 * 2. Hypertension, controlled. * 3. cardiomyopathy, with ejection fraction of 45% * 4. Abnormal ECG demonstrating diffuse ST-T abnormality that clearly consistent with hypertensive heart disease. * 5. Hyperlipidemia, controlled. * 6. Mild obesity. * 7. Remote history of stroke with no residual deficits. * 8. Tongue soreness of unclear etiology she reported resolution * RECOMMENDATIONS: * 1. Patient was advised to continue present medical therapy * 2. We discussed ischemic evaluation but the patient declined based on lack of symptoms. However I did recommend to repeat her echocardiogram to reassess her LV systolic function and for regional motion abnormality * 3. We will try to retrieve her recent labs * 4. The patient was advised to lose weight, exercise, and I will see her back in the office in 9 months [facility] Work Phone: History of Present illness Narrative* Patient is here for follow-up continue management for history of nonischemic cardiomyopathy, abnormal EKG, hypertension and hyperlipidemia. Last time she reported some mild shortness of breath echocardiogram showed preserved LV function the quality of the study was suboptimal. Patient denies chest pain she discussed functional class I. She denies lightheadedness, dizziness or syncope. She was noted incidentally to have lung nodules and has been seen and followed by pulmonary. * ASSESSMENT: * 1. Mild shortness of breath and the patient with history of hypertensive heart disease. Echocardiogram was suboptimal but suggest LVEF around 65%. Recently noted to have some pulmonary nodules currently following with pulmonary * 2. Hypertension, controlled. * 3. cardiomyopathy, seems to have improved * 4. Abnormal ECG demonstrating diffuse ST-T abnormality that clearly consistent with hypertensive heart disease. * 5. Hyperlipidemia, controlled. * 6. Mild obesity. * 7. Remote history of stroke with no residual deficits. * 8. Tongue soreness of unclear etiology she reported resolution * 9. Multiple lung nodule followed by pulmonary * RECOMMENDATIONS: * 1. Patient was advised to continue present medical therapy * 2. Reviewed with the patient the results of her recent lab work, echo and CT scan * 3. The patient was advised to lose weight, exercise, and I will see her back in the office in 9 months [place] [id number] DO Work Phone: Summary Purpose Family History Unknown Family Member Name Dates Details Family history of acute myoc ardial infarction: Father(V17.3, Z82.49) Status:Active Family history of CABG: Brot her(V17.49, Z82.49) Status:Active Unknown Family Member Name Dates Details Family history of CABG: Brot her(V17.49, Z82.49) Status:Active Family history of acute myoc ardial infarction: Father(V17.3, Z82.49) Status:Active Unknown Family Member Name Dates Details Family history of acute myoc ardial infarction: Father(V17.3, Z82.49) Status:Active Family history of CABG: Brot her(V17.49, Z82.49) Status:Active Unknown Family Member Name Dates Details Family history of acute myoc ardial infarction: Father(V17.3, Z82.49) Status:Active Family history of CABG: Brot her(V17.49, Z82.49) Status:Active Unknown Family Member Name Dates Details Family history of acute myoc ardial infarction: Father(V17.3, Z82.49) Status:Active Family history of CABG: Brot her(V17.49, Z82.49) Status:Active Unknown Family Member Name Dates Details Family history of acute myoc ardial infarction: Father(V17.3, Z82.49) Status:Active Family history of CABG: Brot her(V17.49, Z82.49) Status:Active Advance Directives No Advanced Directives Records FoundNo Advanced Directives Records FoundNo Advanced Directives Records FoundNo Advanced Directives Records FoundNo Advanced Directives Records FoundNo Advanced Directives Records Found Chief Complaint ANGELA NIETO is being seen for an annual follow-up of.ANGELA NIETO is being seen for an annual follow-up of.ANGELA NIETO is being seen for an annual follow-up of. TESTING RESULTS. Reason for Referral Reason appt consult to alka baum pulmonary nodules found on CT chest Diagnosis 1 Pulmonary nodule (R9 1.1) Referral Organization [facility] Family Michelle Chery Referring Provider First Name Arabella Referring Provider Last Name Julissa Referring Provider Specialty Family Prac orly Referred Organization Unknown Facility Referred Provider Mary Anne Starkey Referred Provider Specialty Pulmonary Alka glover Referral Priority Routine General Notes Carolina Schulz 07/17/2021 11:44:22 AM > referral faxed with visit note, CT report and insurance card. pt understands she will be contacted to schedule this appt. Additional Source Comments INFORMATION SOURCE (unrecogn ized section and content) DATE CREATED AUTHOR 02/27/2018 [facility] DATE CREATED AUTHOR AUTHOR'S ORGANIZ ATION 08/06/2021 [facility] DATE CREATED AUTHOR AUTHOR'S ORGANIZ ATION 01/21/2022 [facility] DATE CREATED AUTHOR AUTHOR'S ORGANIZ ATION 04/24/2022 [facility] DATE CREATED AUTHOR AUTHOR'S ORGANIZ ATION 10/30/2022 [facility] DATE CREATED AUTHOR AUTHOR'S ORGANIZ ATION 10/30/2022 [employer] REASON FOR VISIT (unrecogniz ed section and content) review labsclinicaldiscuss C T resultsCT scan resultsreview labscovidClinicalreview labsrefillsMammogramreview labsNeurology Referral UpdaterefillClinical FOR RECORDS PERTAINING TO PATIENTS WHO ARE OR HAVE BEEN ENROLLED IN A CHEMICAL DEPENDENCY/SUBSTANCEABUSE PROGRAM, SOME INFORMATION MAY BE OMITTED. This clinical summary was aggregated from multiple sources. Caution should be exercised in using it in the provision of clinical care. This summary normalizes information from multiple sources, and as a consequence, information in this document may materially change the coding, format and clinical context of patient data. In addition, data may be omitted in some cases. CLINICAL DECISIONS SHOULD BE BASED ON THE PRIMARY CLINICAL RECORDS. [facility] [employer] provides no warranty or guarantee of the accuracy or completeness of information in this document.
[2023-04-29 10:05] LABS: Basophils Absolute Auto 0.1 10^3/uL (0.0-0.1); Basophils Percent Auto 0.8 % (0.2-2.0); Eosinophils Absolute Auto 0.4 10^3/uL (0.0-0.7); Eosinophils Percent Auto 3.9 % (0.9-7.0); Hemoglobin 13.2 g/dL (12.0-16.0); Immature Granulocytes Abs Auto 0.01 10^3/uL (0.00-0.03); Immature Granulocytes Pct Auto 0.1 % (0.0-0.5); Lymphocytes Absolute Auto 2.8 10^3/uL (1.2-3.8); Lymphocytes Percent Auto 30.1 % (20.5-60.0); Mean Corpuscular HGB Conc 31.4 g/dL (29.9-35.2); Mean Corpuscular Hemoglobin 29.8 pg (26.7-34.0); Mean Corpuscular Volume 94.8 fL (81.0-99.0); Mean Platelet Volume 9.3 fL (9.5-13.5); Monocytes Absolute Auto 0.7 10^3/uL (0.3-0.8); Monocytes Percent Auto 7.6 % (1.7-12.0); Neutrophils Absolute Auto 5.3 10^3/uL (1.4-6.5); Neutrophils Percent Auto 57.5 % (43.0-75.0); Platelet Count 314 10^3/uL (150-450); Red Blood Count 4.43 10^6/uL (4.20-5.40); Red Cell Distribution Width 13.2 % (11.0-15.0); White Blood Count 9.2 10^3/uL (4.0-11.0)
[2023-04-29 10:35] LABS: Estimated Average Glucose 131 mg/dL; Glycohemoglobin A1C 6.2 % (4.5-6.2)
[2023-04-29 10:39] LABS: Alanine Aminotransferase 27 U/L (14-59); Albumin Globulin Ratio 0.9; Albumin Level 3.5 g/dL (3.4-5.0); Alkaline Phosphatase 75 U/L (46-116); Anion Gap 13.9; Aspartate Amino Transferase 13 U/L (15-37); BUN Creatinine Ratio 16.7; Bilirubin Total 1.2 mg/dL (0.2-1.0); Calcium 9.3 mg/dL (8.5-10.1); Carbon Dioxide 29.6 mmol/L (21.0-32.0); Chloride 103 mmol/L (98-107); Cholesterol 187 mg/dL (<=200); Estimated GFR (African America >60 (>=60); Estimated GFR (Non-African Ame >60 (>=60); Globulin 3.7 g/dL; Glucose 115 mg/dL (74-106); HDL Cholesterol 62 mg/dL (40-60); Potassium 4.5 mmol/L (3.5-5.1); Sodium 142 mmol/L (136-145); Thyroid Stimulating Hormone 1.231 uIU/mL (0.358-3.740); Total Protein 7.2 g/dL (6.4-8.2); Triglycerides 120 mg/dL (<=150)
== END 2023-04-29 09:43 | disposition home or self-care (01) ==
LOC: LAB 09:44
PROVIDERS: PCP Family Medicine; Visit Provider Family Medicine
DX: E78.5 Hyperlipidemia, unspecified (principal); E11.9 Type 2 diabetes mellitus without complications; D75.89 Other specified diseases of blood and blood-forming organs; Z79.899 Other long term (current) drug therapy; R63.4 Abnormal weight loss
CPT/HCPCS: 36415; 80053; 80061; 82607; 82746; 83036; 84443; 85025

== ENCOUNTER 2023-10-24 09:30 | Outpatient (OUT) | payer MEDICARE, BC, SELFPAY ==
--- OUTSIDE RECORDS SUMMARY | 2023-10-24 09:49 | XMS_ITS | CCD ---
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 Bailey Attending Unavail able Traboulkartik, Dr. Bailey Referring Unavail able Julissa, Arabella [...] Care Unavailable GIRVIN, DR BELL Admitting Unavailable Traboulssbenedicto, Dr. Goss Referring Unavaila ble Norma, Dr. Goss Attending Unavaila ble Julissa, Dr. Arabella Sanchez Primary Care Unavaila ble Gireda, Dr. Arabella Sanchez Primary Care Unavaila ble Norma, Dr. Goss Referring Unavaila ble Trabfátima, Dr. Goss Attending Unavaila ble Allergies Allergy Classification Reported Allergen(s) Allergy Type Date of Onset Reaction(s) Facility (6 sources) egg Allergy to substance (finding) Unknown [facility] 250 DO Work Phone: Medications Current Medications Medication Drug Class(es) Dates Sig (Normalized) Sig (Original) atorvastatin 40 mg oral tablet (20 sources) HMG-CoA Reductase Inhibitor Start: 03-16-2018 take 1 tablet by mouth every twenty-four hours Atorvastatin Calcium 40 MG 1 tablet Orally Once a day Feb, Active 24 hr fexofenadine hydrochloride 180 mg / pseudoephedrine hydrochloride 240 mg extended release oral tablet (15 sources) alpha-Adrenergic Agonist, Histamine-1 Receptor Antagonist Start: 10-11-2020 take 1 tablet by mouth every twenty-four hours Fexofenadine-Pseud oephed ER 180-240 MG 1 tablet Orally Once a day prn Sep, Active gabapentin 300 mg oral capsule (20 sources) Anti-epileptic Agent take 1 capsule by mouth twice daily Gabapentin 300 MG TAKE 1 CAPSULE BY MOUTH TWICE A DAY FOR 90 DAYS Active take 2 capsules by mouth once da [place] Gabapentin 300 MG Oral Capsule TAKE 2 CAPSULE Daily Quantity: 0 Refills: 0 Ordered: 17-Apr-2021 DO Active losartan potassium 50 mg oral tablet (20 sources) Angiotensin 2 Receptor Neha take 1 tablet by mouth once daily Losartan Potassium 50 MG TAKE 1 TABLET BY MOUTH EVERY DAY FOR 90 DAYS Active metFORMIN hydrochloride 500 mg oral tablet (20 sources) Biguanide take 2 tablets by mouth at breakfast, then take 1 tablet by mouth at dinner metFORMIN HCl 500 MG TAKE 2 TABLETS BY MOUTH WITH BREAKFAST AND TAKE 1 TABLET WITH EVENING MEAL FOR 90 DAYS Active take 2 tablets by mo uth [...] TAKE 1 TABLET BY MOUTH EVERY DAY Active triamcinolone acetonide 0.055 mg/actuat metered dose nasal spray (16 sources) Corticosteroid Start: 10-17-19 take 2 spray(s) nasal route once daily Nasacort Allergy 24HR 55 MCG/ACT 2 sprays each nostril Nasally Once a day Sep, Active Start: 01-08-2019 LANCE Ronna Maye sanchez g Dec, 1.5 cc 24 hr venlafaxine 75 mg extended release oral capsule (20 sources) Serotonin and Norepinephrine Reuptake Inhibitor take 1 capsule by mouth once daily at mealtime Venlafaxine HCl ER 75 MG TAKE 1 CAPSULE BY MOUTH EVERY DAY WITH FOOD FOR 90 DAYS Active take 1 capsule by mo [facility] once daily at mealtime Effexor XR 150 MG Oral Capsule Extended Release 24 Hour TAKE 1 CAPSULE ONCE DAILY WITH FOOD. Quantity: 0 Refills: 0 Ordered: 17-Apr-2021 DO Active vitamin b12 1 mg extended release oral tablet (1 source) Vitamin B12 Start: 10-16-2021 take 1 tablet by mouth every other day Vitamin B12 1000 MCG 1 tablet Orally qod Sep, Active Vitamin B12 1000 MCG (10 sources) [...] Active Problems Problem Classification Problem Date Documented Da te Episodic/Chronic Acute cerebrovascular disease (20 sources) Cerebrovascular accident; Translations: [Cerebral artery occlusion, unspecified with cerebral infarction] Onset: 2 Resolved: 2 Chronic Cardiac dysrhythmias (1 source) Tachycardia, unspecified Episodic Coronary atherosclerosis and other heart disease (1 source) Coronary atherosclerosis and other heart disease Onset: 8 Deficiency and other anemia (2 sources) Anemia, unspecified Episodic Diabetes mellitus with complications (1 source) Diabetes mellitus with complications Onset: 8 Diabetes mellitus without complication (20 sources) Diabetes mellitus; Translations: [Diabetes mellitus without mention of complication, type II or unspecified type, not stated as uncontrolled] Onset: 2 Resolved: 2 Chronic Diseases of mouth; excluding dental (20 sources) Glossodynia; Translations: [Glossodynia] Onset: 2 Resolved: [...] Onset: 2 Resolved: 2 Episodic Mood disorders (20 sources) Major depressive disorder, single episode, unspecified; Translations: [Depression] Onset: 2 Resolved: 2 Chronic Other aftercare (6 sources) Other terminal clerk (current) drug therapy; Translations: [OTH USP CURRENT DRUG THERAPY] Onset: 2 Resolved: 2 Episodic Other connective tissue disease (2 sources) Pain in unspecified foot Episodic Other gastrointestinal disorders (1 source) Dysphagia; Translations: [Dysphagia, unspecified] Episodic Other gastrointestinal disorders (1 source) Dysphagia, unspecified Episodic Other hematologic conditions (11 sources) Macrocytosis; Translations: [Other specified diseases of blood and blood-forming organs] Chronic Other hematologic conditions (8 sources) Other specified diseases of blood and blood-forming organs; Translations: [OTH SPEC DZ BLOOD AND BLOOD-FORM ORG] Onset: 2 Resolved: 2 Chronic Other lower respiratory disease (6 sources) Dyspnea on exertion; Translations: [Shortness of breath] Episodic Other lower respiratory disease (13 sources) Nodule of lung; Translations: [Solitary pulmonary nodule] Episodic Other lower respiratory disease (8 sources) Solitary pulmonary nodule; Translations: [SOLITARY PULMONARY NODULE] Onset: 2 Resolved: 2 Episodic Other lower respiratory disease (1 source) Multiple nodules of lung; Translations: [Other nonspecific abnormal finding of lung field] Episodic Other nervous system disorders (15 sources) Skin sensation disturbance; Translations: [Paresthesia of skin] Episodic Other nervous system disorders (5 sources) Paresthesia; Translations: [Paresthesia of skin] Episodic [...] and metabolic disorders (3 sources) Abnormal weight loss Onset: 2 Resolved: 2 Episodic Other nutritional; endocrine; and metabolic disorders (3 sources) Abnormal weight gain; Translations: [ABNORMAL WEIGHT GAIN] Onset: 2 Resolved: 2 Episodic Other screening for suspected conditions (not mental disorders or infectious disease) (8 sources) Abnormal electrocardiogram [ECG] [EKG]; Translations: [Electrocardiogram abnormal] Onset: 8 Resolved: 2 Episodic Other upper respiratory disease (15 sources) Allergic rhinitis; Translations: [Allergic rhinitis, unspecified] Chronic Other upper respiratory disease (5 sources) Allergic rhinitis, unspecified Onset: 2 Resolved: [...] Weight Tips; Status:Complete - Retrospective Authorization; Done: 29Oct2022 Some eating tips that can help you lose weight.; Status:Complete - Retrospective Authorization; Done: 29Oct2022 SocHx: Never a smoker Tobacco Use Screening; Status:Complete; Done: 29Oct2022 Patient Instructions Please bring all medicines, vitamins, [...] Signs Recorded: 29Oct2022 02:29PMRecorded: 29Oct2022 02:25PM Heart Hlda3775 [id number] Hkvfiikse1686 Height5 ft 3 in5 ft 3 in Spzgks276 lb 12.8 oz160 lb 12.8 oz BMI Uxdupydckz70.48 kg/m228.48 kg/m2 BSA Calculated1.761.76 Tobacco Useb) Nob) No PHQ-2 #1. Over the last 2 weeks have you felt down, depressed or hopeless? (If yes, answer PHQ-9 below)NoNo PHQ-2 #2. Over the last 2 weeks have you felt little interest or pleasure in doing things? (If yes, answer PHQ-9 bel (more content not included)... Normal [facility] CBC AUTO DIFFon 04-18-2022 BASO # 0.1 103/ul Normal 0.0-0.1 [facility] Comment on above: Performed By: #### C BC #### [facility] [address] [place] [address] Dr. Citlalli Schmidt Basophils/100 WBC (Bld) 0.7 % Normal 0.2-2.0 [facility] Comment on above: Performed By: #### C BC #### [facility] [address] [address] [address] Citlalli Schmidt EO # 0.6 103/ul Normal 0.0-0.7 [facility] Comment on above: Performed By: #### C BC #### [facility] [address] [place] [address] Dr. Citlalli Schmidt Eosinophils/100 WBC (Bld) 6.5 % Normal 0.9-7.0 [facility] Comment on above: Performed By: #### C BC #### [facility] [address] [place] [address] Dr. Citlalli Schmidt Erythrocyte distribution width (RBC) [Ratio] 13.2 % Normal 11.0-15.0 [facility] Comment on above: Performed By: #### C BC #### [facility] [address] [place] [address] Dr. Citlalli Schmidt Hematocrit (Bld) [Volume fraction] 42.5 % Normal 36.0-48.0 [facility] Comment on above: Performed By: #### C BC #### [facility] [address] [place] [address] Dr. Citlalli Schmidt Hemoglobin (Bld) [Mass/Vol] 13.9 g/dL Normal 12.0-16.0 [facility] Comment on above: Performed By: #### C BC #### [facility] [address] [place] [address] Dr. Citlalli Schmidt IG # 0.02 10e3/ul Normal 0.00-0.03 [facility] Comment on above: Performed By: #### C BC #### [facility] [address] [place] [address] Dr. Citlalli Schmidt IG % 0.2 % Normal 0.0-0.5 [facility] Comment on above: Performed By: #### C BC #### [facility] [address] [place] [address] Dr. Citlalli Schmidt LYMPH # 2.7 103/ul Normal 1.2-3.8 [facility] Comment on above: Performed By: #### C BC #### [facility] [address] [place] [address] Dr. Citlalli Schmidt Lymphocytes/100 WBC (Bld) 31.6 % Normal 20.5-60.0 [facility] Comment on above: Performed By: #### C BC #### [facility] [address] [place] [address] Dr. Citlalli Schmidt MANUAL DIFF REQ NO Normal [facility] Comment on above: Performed By: #### C BC #### [facility] [address] [place] [address] Dr. Citlalli Schmidt MCH (RBC) [Entitic mass] 30.4 pg Normal 26.7-34.0 [facility] Comment on above: Performed By: #### C BC #### [facility] [address] [place] [address] Dr. Citlalli Schmidt MCHC (RBC) [Mass/Vol] 32.7 g/dL Normal 29.9-35.2 [facility] Comment on above: Performed By: #### C BC #### [facility] [address] [place] [address] Dr. Citlalli Schmidt MCV (RBC) [Entitic vol] 93.0 fL Normal 81.0-99.0 [facility] Comment on above: Performed By: #### C BC #### [facility] [address] [place] [address] Dr. Citlalli Schmidt MONO # 0.7 103/ul Normal 0.3-0.8 [facility] Comment on above: Performed By: #### C BC #### [facility] [address] [place] [address] Dr. Citlalli Schmidt Monocytes/100 WBC (Bld) 8.2 % Normal 1.7-12.0 [facility] Comment on above: Performed By: #### C BC #### [facility] [address] [place] [address] Dr. Citlalli Schmidt NEUT # 4.5 103/ul Normal 1.4-6.5 [facility] Comment on above: Performed By: #### C BC #### [facility] [address] [place] [address] Dr. Citlalli Schmidt Neutrophils/100 WBC (Bld) 52.8 % Normal 43.0-75.0 [facility] Comment on above: Performed By: #### C BC #### [facility] [address] [place] [address] Dr. Citlalli Schmidt Platelet mean volume (Bld) [Entitic vol] 9.5 fL Normal 9.5-13.5 [facility] Comment on above: Performed By: #### C BC #### [facility] [address] [address] [address] Citlalli Schmidt PLT 321 103/ul Normal 150-450 [facility] Comment on above: Performed By: #### C BC #### [facility] [address] [address] [address] Citlalli Schmidt RBC 4.57 106/ul Normal 4.20-5.40 [facility] Comment on above: Performed By: #### C BC #### [facility] [address] [address] [address] Citlalli Schmidt WBC 8.4 103/ul Normal 4.0-11.0 [facility] Comment on above: Performed By: #### C BC #### [facility] [address] [address] [address] Citlalli Schmidt GLYCOHEMOGLOBIN A1Con 2022 ADA RECOMMENDATION SEE BELOW Normal [facility] Comment on above: Result Comment: ADA RECOMMENDED LIMIT 4.0 - 6.0 ADA THERAPEUTIC TARGET < 7.0 ACTION SUGGESTED > 7.0 Performed By: #### A 1C #### [facility] [address] [address] [address] Citlalli Schmidt Glucose [Mass/Vol] 137 mg/dL Normal [facility] Comment on above: Performed By: #### A 1C #### [facility] [address] [address] [address] Citlalli Schmidt HbA1c (Bld) [Mass fraction] 6.4 % Critically high 4.5-6.2 [facility] Comment on above: Performed By: #### A 1C #### [facility] [address] [address] [address] Citlalli Schmidt LIPID PROFILEon 04-18-2022 CHOL-HDL RATIO NORM SEE BELOW Normal [facility] Comment on above: Result Comment: 3.3 - 4.4 LOW RISK 4.4 - 7.1 AVERAGE RISK 7.1 - 11.0 MODERATE RISK >11.0 HIGH RISK Performed By: #### T SH, LIPID, CMP ####[facility] [address] [address]Dr. Citlalli Schmidt Cholesterol [Mass/Vol] 165 mg/dL Normal <=200 [facility] Comment on above: Performed By: #### T SH, LIPID, CMP ####[facility] [address] [address]Dr. Citlalli Schmidt Cholesterol in HDL [Mass/Vol] 58 mg/dL Normal 40-60 [facility] Comment on above: Performed By: #### T SH, LIPID, CMP ####[facility] [address] [address]Dr. Citlalli Schmidt Cholesterol in LDL [Mass/Vol] 78.8 mg/dL Normal [facility] Comment on above: Performed By: #### T IVETH, LIPID, CMP ####[facility] [address] [address]Dr. Citlalli Schmidt Cholesterol.total/Cho lesterol in HDL [Mass ratio] 2.8 {ratio} Normal [facility] Comment on above: Performed By: #### T IVETH, LIPID, CMP ####[facility] [address] [address]Dr. Citlalli Schmidt HDL NORMAL > or = 60 mg/dl - LOW CARDIOVASCULAR RISK <40 mg/dl - HIGH CARDIOVASCULAR RISK Normal [facility] Comment on above: Performed By: #### T SH, LIPID, CMP ####[facility] [address] [address]Dr. Citlalli Schmidt LDL CALC NORMAL SEE BELOW Normal [facility] Comment on above: Result Comment: <100 mg/dl OPTIMAL 100 - 129 mg/dl NEAR OR ABOVE OPTIMAL 130 - 159 mg/dl BORDERLINE HIGH 160 - 189 mg/dl HIGH >190 mg/dl VERY HIGH Performed By: #### T SH, LIPID, CMP ####[facility] [address] [address]Dr. Citlalli Schmidt Triglyceride [Mass/Vol] 141 mg/dL Normal <=150 [facility] Comment on above: Performed By: #### T SH, LIPID, CMP ####[facility] [address] [address]Dr. Rosiechristi Schmidt VLDL CALC 28.2 mg/dL Normal [facility] Comment on above: Performed By: #### T IVETH LIPID, CMP ####[facility] [address] [address]Dr. Citlalli Schmidt PROF 14(COMP METB)on 023 Albumin [Mass/Vol] 3.7 g/dL Normal 3.4-5.0 [facility] Comment on above: Performed By: #### T IVETH LIPID, CMP ####[facility] [address] [address]Dr. Citlalli Schmidt Albumin/Globulin [Mass ratio] 1.1 {ratio} Normal [facility] Comment on above: Performed By: #### T IVETH LIPID, CMP ####[facility] [address] [address]Dr. Citlalli Schmidt ALP [Catalytic activity/Vol] 82 U/L Normal 46-116 [facility] Comment on above: Performed By: #### T IVETH LIPID, CMP ####[facility] [address] [address]Dr. Citlalli Schmidt ALT [Catalytic activity/Vol] 18 U/L Normal 14-59 [facility] Comment on above: Performed By: #### T IVEHT LIPID, CMP ####[facility] [address] [address]Dr. Citlalli Schmidt Anion gap [Moles/Vol] 12.4 mmol/L Normal [facility] Comment on above: Performed By: #### T IVETH LIPID, CMP ####[facility] [address] [address]Dr. Citlalli Schmidt AST [Catalytic activity/Vol] 14 U/L Critically low 15-37 [facility] Comment on above: Performed By: #### T IVETH LIPID, CMP ####[facility] [address] [address]Dr. Citlalli Schmidt Bilirubin [Mass/Vol] 1.0 mg/dL Normal 0.2-1.0 [facility] Comment on above: Performed By: #### T IVETH LIPID, CMP ####[facility] [address] [address]Dr. Citlalli Schmidt Calcium [Mass/Vol] 9.4 mg/dL Normal 8.5-10.1 [facility] Comment on above: Performed By: #### T SH, LIPID, CMP ####[facility] [address] [address]Dr. Citlalli Schmidt Chloride [Moles/Vol] 104 mmol/L Normal 98-107 [facility] Comment on above: Performed By: #### T SH, LIPID, CMP ####[facility] [address] [address]Dr. Citlalli Schmidt CO2 [Moles/Vol] 29.8 mmol/L Normal 21.0-32.0 [facility] Comment on above: Performed By: #### T IVETH, LIPID, CMP ####[facility] [address] [place], [place] [address]Dr. Citlalli Schmidt Creatinine [Mass/Vol] 0.69 mg/dL Normal 0.55-1.02 [facility] Comment on above: Performed By: #### T IVETH, LIPID, CMP ####[facility] [address] [place], [place] [address]Dr. Citlalli Schmidt EGFR-AF GUAMANIAN >60 Normal >=60 [facility] Comment on above: Performed By: #### T IVETH, LIPID, CMP ####[facility] [address] [place], [place] [address]Dr. Citlalli Schmidt EGFR-NON AF GUAMANIAN >60 Normal >=60 [facility] Comment on above: Performed By: #### T SH, LIPID, CMP ####[facility] [address] [address]Dr. Citlalli Schmidt Globulin (S) [Mass/Vol] 3.4 g/dL Normal [facility] Comment on above: Performed By: #### T SH, LIPID, CMP ####[facility] [address] [address]Dr. Citlalli Schmidt Glucose [Mass/Vol] 116 mg/dL Critically high 74-106 [facility] Comment on above: Performed By: #### T SH, LIPID, CMP ####[facility] [address] [place] [address]Dr. Citlalli Schmidt Potassium [Moles/Vol] 4.2 mmol/L Normal 3.5-5.1 [facility] Comment on above: Performed By: #### T SH, LIPID, CMP ####[facility] [address] [address]Dr. Citlalli Schmidt Protein [Mass/Vol] 7.1 g/dL Normal 6.4-8.2 [facility] Comment on above: Performed By: #### T SH, LIPID, CMP ####[facility] [address] [address]Dr. Citlalli Schmidt Sodium [Moles/Vol] 142 mmol/L Normal 136-145 [facility] Comment on above: Performed By: #### T SH, LIPID, CMP ####[facility] [address] [address]Dr. Citlalli Schmidt Urea nitrogen [Mass/Vol] 12.0 mg/dL Normal 7.0-18.0 [facility] Comment on above: Performed By: #### T SH, LIPID, CMP ####[facility] [address] [place] [address]Dr. Citlalli Schmidt Urea nitrogen/Creatinine [Mass ratio] 17.4 mg/mg Normal [facility] Comment on above: Performed By: #### T SH, LIPID, CMP ####[facility] [address] [address]Dr. Citlalli Schmidt TSHon 04-18-2022 TSH 1.444 uIU/mL Normal 0.358-3.[address] [facility] Comment on above: Performed By: #### T SH, LIPID, CMP ####[facility] [address] [address]Dr. Citlalli Schmidt VIT B12 AND FOLATEon 023 Cobalamin (Vitamin B12) [Mass/Vol] 419.0 pg/mL Normal 193.0-986.0 [facility] Comment on above: Performed By: #### B 12FOL #### [facility] [address] [place], [place] [address] Dr. Citlalli Schmidt FOLATE 24.40 ng/mL Normal 8.60-58.90 [facility] Comment on above: Performed By: #### B 12FOL #### [facility] [address] [place] [address] Dr. Citlalli Schmidt Office Visit (Cardiology)on 01-28-2022 [...] Recorded: 28Jan2022 02:28PM Heart Rate68, L Radial Hcbndxya138, LUE, Sitting Qzdvoiwkz57, LUE, Sitting Height5 ft 3 in Yvbxit377 lb BMI Kwpfyxaxpx86.82 kg/m2 BSA Calculated1.82 Tobacco Useb) No PHQ-2 [...] carotid puls (more content not included)... Normal [facility] Tobacco Screening.on 022 Adult depression screening assessment No [facility] 250 DO Work Phone: Fall risk assessment a) No falls within the last year [facility] 250 DO Work Phone: Tobacco use status [facility]PH[facility] b) No [facility] 250 DO Work Phone: CT CHEST WO [...] by: ARABELLA REEVES Date: 2022-01-12 17:18 Normal [facility] Echocardiogramon 12-17-[address], [address] [place] [address] TRANSTHORACIC ECHOCARDIOGRAM REPORT Patient Name: ANGELA NIETO Reading Physician: [id number] Maria De Jesus Green MD Study Date: 12/17/2021 Referring Physician: MARIA DE JESUS GREEN MRN/PID: [id number] PCP: Arabella Marquez Accession/Order#: [id number] Department Location: [facility] Date of : 1950 Fellow: Gender: F Nurse: Admit Date: Woven Paper Hat Mender: Mamta Palacio RD, T Height: 160.02 cm CC Report to: Weight: 75.30 kg Study Type: Echocardiogram BSA: 1.79 m2 Diagnosis/ICD: I42.9-Cardiomyopathy , unspecified Indication: Abnormal EKG, Diabetes, HTN, Hyperlipidemia, CVA, Overweight Procedure/CPT: Echo Complete w Full [id number] Study Detail: The following Echo studies were [...] 0.7 m/s (0.6-0.9m/s) PV Max P.8 mmHg [id number] Maria De Jesus Green MD Electronically signed on 12/17/2021 at 12:50:22 PM Final Normal [facility] Screening (Age 18+)on 12-17-2021 Fall risk assessment a) No falls within the last year -[facility] [id number] [place] Work Phone: CBC AUTO DIFFon 10-12-2021 BASO # 0.1 103/ul Normal 0.0-0.1 [facility] Comment on above: Performed By: #### C BC #### [facility] [address] [place] [address] Dr. Citlalli Schmidt Basophils/100 WBC (Bld) 0.9 % Normal 0.2-2.0 [facility] Comment on above: Performed By: #### C BC #### [facility] [address] [place] [address] Dr. Citlalli Schmidt EO # 0.7 103/ul Normal 0.0-0.7 [facility] Comment on above: Performed By: #### C BC #### [facility] [address] [place] [address] Dr. Citlalli Schmidt Eosinophils/100 WBC (Bld) 7.0 % Normal 0.9-7.0 [facility] Comment on above: Performed By: #### C BC #### [facility] [address] [place] [address] Dr. Citlalli Schmidt Erythrocyte distribution width (RBC) [Ratio] 12.7 % Normal 11.0-15.0 [facility] Comment on above: Performed By: #### C BC #### [facility] [address] [place] [address] Dr. Citlalli Schmidt Hematocrit (Bld) [Volume fraction] 41.1 % Normal 36.0-48.0 [facility] Comment on above: Performed By: #### C BC #### [facility] [address] [place] [address] Dr. Citlalli Schmidt Hemoglobin (Bld) [Mass/Vol] 13.0 g/dL Normal 12.0-16.0 [facility] Comment on above: Performed By: #### C BC #### [facility] [address] [place] [address] Dr. Citlalli Schmidt IG # 0.02 10e3/ul Normal 0.00-0.03 [facility] Comment on above: Performed By: #### C BC #### [facility] [address] [place] [address] Dr. Citlalli Schmidt IG % 0.2 % Normal 0.0-0.5 [facility] Comment on above: Performed By: #### C BC #### [facility] [address] [address] [address] Citlalli Schmidt LYMPH # 3.2 103/ul Normal 1.2-3.8 [facility] Comment on above: Performed By: #### C BC #### [facility] [address] [address] [address] Citlalli Schmidt Lymphocytes/100 WBC (Bld) 34.8 % Normal 20.5-60.0 [facility] Comment on above: Performed By: #### C BC #### [facility] [address] [place] [address] Dr. Citlalli Schmidt MANUAL DIFF REQ NO Normal [facility] Comment on above: Performed By: #### C BC #### [facility] [address] [place] [address] Dr. Citlalli Schmidt MCH (RBC) [Entitic mass] 30.6 pg Normal 26.7-34.0 [facility] Comment on above: Performed By: #### C BC #### [facility] [address] [place] [address] Dr. Citlalli Schmidt MCHC (RBC) [Mass/Vol] 31.6 g/dL Normal 29.9-35.2 [facility] Comment on above: Performed By: #### C BC #### [facility] [address] [place] [address] Dr. Citlalli Schmidt MCV (RBC) [Entitic vol] 96.7 fL Normal 81.0-99.0 [facility] Comment on above: Performed By: #### C BC #### [facility] [address] [place] [address] Dr. Citlalli Schmidt MONO # 0.8 103/ul Normal 0.3-0.8 [facility] Comment on above: Performed By: #### C BC #### [facility] [address] [place] [address] Dr. Citlalli Schmidt Monocytes/100 WBC (Bld) 8.5 % Normal 1.7-12.0 [facility] Comment on above: Performed By: #### C BC #### [facility] [address] [address] [address] Citlalli Schmidt NEUT # 4.5 103/ul Normal 1.4-6.5 [facility] Comment on above: Performed By: #### C BC #### [facility] [address] [address] [address] Citlalli Schmidt Neutrophils/100 WBC (Bld) 48.6 % Normal 43.0-75.0 [facility] Comment on above: Performed By: #### C BC #### [facility] [address] [address] [address] Citlalli Schmidt Platelet mean volume (Bld) [Entitic vol] 9.3 fL Critically low 9.5-13.5 [facility] Comment on above: Performed By: #### C BC #### [facility] [address] [place] [address] Dr. Citlalli Schmidt PLT 316 103/ul Normal 150-450 [facility] Comment on above: Performed By: #### C BC #### [facility] [address] [place] [address] Dr. Citlalli Schmidt RBC 4.25 106/ul Normal 4.20-5.40 [facility] Comment on above: Performed By: #### C BC #### [facility] [address] [address] [address] Citlalli Schmidt WBC 9.2 103/ul Normal 4.0-11.0 [facility] Comment on above: Performed By: #### C BC #### [facility] [address] [place] [address] Dr. Citlalli Schmidt GLYCOHEMOGLOBIN A1Con 2021 ADA RECOMMENDATION SEE BELOW Normal [facility] Comment on above: Result Comment: ADA RECOMMENDED LIMIT 4.0 - 6.0 ADA THERAPEUTIC TARGET < 7.0 ACTION SUGGESTED > 7.0 Performed By: #### A 1C #### [facility] [address] [place] [address] Dr. Citlalli Schmidt Glucose [Mass/Vol] 137 mg/dL Normal [facility] Comment on above: Performed By: #### A 1C #### [facility] [address] [address] [address] Citlalli Schmidt HbA1c (Bld) [Mass fraction] 6.4 % Critically high 4.5-6.2 [facility] Comment on above: Performed By: #### A 1C #### [facility] [address] [address] [address] Citlalli Schmidt LIPID PROFILEon 10-12-2021 CHOL-HDL RATIO NORM SEE BELOW Normal [facility] Comment on above: Result Comment: 3.3 - 4.4 LOW RISK 4.4 - 7.1 AVERAGE RISK 7.1 - 11.0 MODERATE RISK >11.0 HIGH RISK Performed By: #### L IPID, CMP #### [facility] [address] [address] [address] Citlalli Schmidt Cholesterol [Mass/Vol] 175 mg/dL Normal <=200 [facility] Comment on above: Performed By: #### L IPID, CMP #### [facility] [address] [address] [address] Citlalli Schmidt Cholesterol in HDL [Mass/Vol] 53 mg/dL Normal 40-60 [facility] Comment on above: Performed By: #### L IPID, CMP #### [facility] [address] [address] [address] Citlalli Schmidt Cholesterol in LDL [Mass/Vol] 94.6 mg/dL Normal [facility] Comment on above: Performed By: #### L IPID, CMP #### [facility] [address] [address] [address] Citlalli Schmidt Cholesterol.total/Cho lesterol in HDL [Mass ratio] 3.3 {ratio} Normal [facility] Comment on above: Performed By: #### L IPID, CMP #### [facility] [address] [address] [address] Citlalli Schmidt HDL NORMAL > or = 60 mg/dl - LOW CARDIOVASCULAR RISK <40 mg/dl - HIGH CARDIOVASCULAR RISK Normal [facility] Comment on above: Performed By: #### L IPID, CMP #### [facility] [address] [address] [address] Citlalli Schmidt LDL CALC NORMAL SEE BELOW Normal [facility] Comment on above: Result Comment: <100 mg/dl OPTIMAL 100 - 129 mg/dl NEAR OR ABOVE OPTIMAL 130 - 159 mg/dl BORDERLINE HIGH 160 - 189 mg/dl HIGH >190 mg/dl VERY HIGH Performed By: #### L IPID, CMP #### [facility] [address] [address] [address] Citlalli Schmidt Triglyceride [Mass/Vol] 137 mg/dL Normal <=150 [facility] Comment on above: Performed By: #### L IPID, CMP #### [facility] [address] [address] [address] Citlalli Schmidt VLDL CALC 27.4 mg/dL Normal [facility] Comment on above: Performed By: #### L IPID, CMP #### [facility] [address] [place] [address] Dr. Citlalli Schmidt MICROALBUMIN, RAND URon 07- mALB 1.8 mg/L Normal <=30.0 [facility] Comment on above: Performed By: #### M ALBR #### [facility] [address] [address] [address] Citlalli Schmidt PROF 14(COMP METB)on 022 Albumin [Mass/Vol] 3.6 g/dL Normal 3.4-5.0 [facility] Comment on above: Performed By: #### L IPID, CMP #### [facility] [address] [place] [address] Dr. Citlalli Schmidt Albumin/Globulin [Mass ratio] 1.0 {ratio} Normal [facility] Comment on above: Performed By: #### L IPID, CMP #### [facility] [address] [address] [address] Citlalli Schmidt ALP [Catalytic activity/Vol] 78 U/L Normal 46-116 [facility] Comment on above: Performed By: #### L IPID, CMP #### [facility] [address] [place] [address] Dr. Citlalli Schmidt ALT [Catalytic activity/Vol] 21 U/L Normal 14-59 [facility] Comment on above: Performed By: #### L IPID, CMP #### [facility] [address] [address] [address] Citlalli Schmidt Anion gap [Moles/Vol] 11.2 mmol/L Normal [facility] Comment on above: Performed By: #### L IPID, CMP #### [facility] [address] [address] [address] Citlalli Schmidt AST [Catalytic activity/Vol] 16 U/L Normal 15-37 [facility] Comment on above: Performed By: #### L IPID, CMP #### [facility] [address] [address] [address] Citlalli Schmidt Bilirubin [Mass/Vol] 1.3 mg/dL Critically high 0.2-1.0 [facility] Comment on above: Performed By: #### L IPID, CMP #### [facility] [address] [address] [address] Citlalli Schmidt Calcium [Mass/Vol] 9.4 mg/dL Normal 8.5-10.1 [facility] Comment on above: Performed By: #### L IPID, CMP #### [facility] [address] [address] [address] Citlalli Schmidt Chloride [Moles/Vol] 104 mmol/L Normal 98-107 [facility] Comment on above: Performed By: #### L IPID, CMP #### [facility] [address] [address] [address] Citlalli Schmidt CO2 [Moles/Vol] 29.2 mmol/L Normal 21.0-32.0 [facility] Comment on above: Performed By: #### L IPID, CMP #### [facility] [address] [address] [address] Citlalli Schmidt Creatinine [Mass/Vol] 0.82 mg/dL Normal 0.55-1.02 [facility] Comment on above: Performed By: #### L IPID, CMP #### [facility] [address] [address] [address] Citlalli Schmidt EGFR-AF GUAMANIAN >60 Normal >=60 [facility] Comment on above: Performed By: #### L IPID, CMP #### [facility] [address] [address] [address] Citlalli Schmidt EGFR-NON AF GUAMANIAN >60 Normal >=60 [facility] Comment on above: Performed By: #### L IPID, CMP #### [facility] [address] [address] [address] Citlalli Schmidt Globulin (S) [Mass/Vol] 3.5 g/dL Normal [facility] Comment on above: Performed By: #### L IPID, CMP #### [facility] [address] [address] [address] Citlalli Schmidt Glucose [Mass/Vol] 122 mg/dL Critically high 74-106 [facility] Comment on above: Performed By: #### L IPID, CMP #### [facility] [address] [address] [address] Citlalli Schmidt Potassium [Moles/Vol] 4.4 mmol/L Normal 3.5-5.1 [facility] Comment on above: Performed By: #### L IPID, CMP #### [facility] [address] [address] [address] Citlalli Schmidt Protein [Mass/Vol] 7.1 g/dL Normal 6.4-8.2 [facility] Comment on above: Performed By: #### L IPID, CMP #### [facility] [address] [address] [address] Citlalli Schmidt Sodium [Moles/Vol] 140 mmol/L Normal 136-145 [facility] Comment on above: Performed By: #### L IPID, CMP #### [facility] [address] [address] [address] Citlalli Schmidt Urea nitrogen [Mass/Vol] 17.0 mg/dL Normal 7.0-18.0 [facility] Comment on above: Performed By: #### L IPID, CMP #### [facility] [address] [address] [address] Citlalli Schmidt Urea nitrogen/Creatinine [Mass ratio] 20.7 mg/mg Normal [facility] Comment on above: Performed By: #### L IPID, CMP #### [facility] [address] [address] [address] Citlalli Schmidt SCREENING MAMMOGRAM W/BASIM, BILATERAL*on [...] VERY IMPORTANT TO YOUR HEALTH. THE CURRENT [place] [employer] OF [employer] AND [employer] COM[employer] NETWORK GUIDELINES RECOMMENDS ANNUAL MAMMOGRAPHY BEGINNING AT AGE 40 THIS FACILITY USES A REMINDER SYSTEM TO ENSURE ALL PATIENTS RECEIVE REMINDER NOTIFICATIONS AT THE APPROPRIATE TIME BASED ON THE RECOMMENDATIONS OF THIS EXAM. Board Certified Radiologist. Accredited by the ACR and FDA. Report reported and signed by Tony Garcia on 07/23/2021 1102 Normal [facility] CT CHEST WO CONon 07-17-2021 CT CHEST [...] DARIEL VARGHESE Date: 2021-07-17 09:50 Normal [facility] Tobacco Screening.on 022 Fall risk assessment a) No falls within the last year [employer] 250 DO Work Phone: Tobacco use status [facility]PH[facility] b) No -[employer] 250 DO Work Phone: Vital Signs Date Time Vital Sign Value Performing Clinician Facility 04-30-2023 09:10-0500 Body height 160.02 cm Arabella Kryseda Other [employer] Other 04-30-2023 09:10-0500 Body mass index (BMI) [Ratio] 27.28 kg/m2 Arabella Marquez Other [facility] Other 04-30-2023 09:10-0500 Body temperature 97.8 [degF] Arabella Marquez Other [employer] [facility] Other 04-30-2023 09:10-0500 Body weight 69.85 kg Arabella Marquez Other [employer] [facility] Other 04-30-2023 09:10-0500 Diastolic blood pressure 76 mm[Hg] Arabella Marquez Other [employer] Other 04-30-2023 09:10-0500 Respiratory rate 18 /min Arabella Marquez Other [employer] Other 04-30-2023 09:10-0500 SaO2% (BldA) [Mass fraction] 98 % Arabella Marquez Other [facility] Other 04-30-2023 09:10-0500 Systolic blood pressure 136 mm[Hg] Arabella Marquez Other [facility] Other 10-24-2022 08:30-0400 Body height 160.02 cm Arabella Marquez Other [employer] Other 10-24-2022 08:30-0400 Body mass index (BMI) [Ratio] 28.34 kg/m2 Arabella Marquez Other [employer] [facility] Other 10-24-2022 08:30-0400 Body temperature 97.1 [degF] Arabella Marquez Other [employer] [facility] Other 10-24-2022 08:30-0400 Body weight 72.58 kg Arabella Marquez Other [employer] [facility] Other 10-24-2022 08:30-0400 Diastolic blood pressure 80 mm[Hg] Arabella Marquez Other [employer] Other 10-24-2022 08:30-0400 Respiratory rate 16 /min Arabella Marquez Other [employer] Other 10-24-2022 08:30-0400 SaO2% (BldA) [Mass fraction] 97 % Arabella Marquez Other [employer] Other 10-24-2022 08:30-0400 Systolic blood pressure 126 mm[Hg] Arabella Marquez Other [employer] [facility] Other 04-23-2022 09:10-0500 Body height 160.02 cm Arabella Marquez Other [employer] Other 04-23-2022 09:10-0500 Body mass index (BMI) [Ratio] 29.93 kg/m2 Arabella Marquez Other [employer] Other 04-23-2022 09:10-0500 Body temperature 97.3 [degF] Arabella Marquez Other [employer] [facility] Other 04-23-2022 09:10-0500 Body weight 76.66 kg Arabella Marquez Other [employer] Other 04-23-2022 09:10-0500 Diastolic blood pressure 88 mm[Hg] Arabella Marquez Other [employer] Other 04-23-2022 09:10-0500 Respiratory rate 18 /min Arabella Marquez Other [employer] Other 04-23-2022 09:10-0500 SaO2% (BldA) [Mass fraction] 98 % Arabella Marquez Other [employer] Other 04-23-2022 09:10-0500 Systolic blood pressure 138 mm[Hg] Arabella Marquez Other [employer] [facility] Other 01-28-2022 14:28-0400 Body height 160.02 cm Arabella Marquez Work Phone: [email or web address] DO Work Phone: 01-28-2022 14:28-0400 Body mass index (BMI) [Ratio] 30.82 kg/m2 Arabella Marquez Work Phone: [employer] 250 DO Work Phone: 01-28-2022 14:28-0400 Body surface area Derived from formula 1.82 m2 Arabella Marquez Work Phone: [email or web address] 250 DO Work Phone: 01-28-2022 14:28-0400 Body weight 78.93 kg Arabella Marquez Work Phone: [facility] 250 DO Work Phone: 01-28-2022 14:28-0400 Diastolic blood pressure 70 mm[Hg] Arabella Marquez Work Phone: [facility] 250 DO Work Phone: 01-28-2022 14:28-0400 Heart rate 68 /min Arabella Marquez Work Phone: [facility] 250 DO Work Phone: 01-28-2022 14:28-0400 Systolic blood pressure 124 mm[Hg] Arabella Marquez Work Phone: [facility] 250 DO Work Phone: 12-17-2021 09:45-0400 65 1 Arabella Marquez Work Phone: [facility] [address] [place] Work Phone: Comment on above: [id number] 10-16-2021 09:10-0400 Body height 160.02 cm Arabella Marquez Other [facility] [employer] Other 10-16-2021 09:10-0400 Body mass index (BMI) [Ratio] 29.76 kg/m2 Arabella Marquez Other [employer] Other 10-16-2021 09:10-0400 Body temperature 97.4 [degF] Arabella Marquez Other [employer] Other 10-16-2021 09:10-0400 Body weight 76.2 kg Arabella Marquez Other [employer] Other 10-16-2021 09:10-0400 Diastolic blood pressure 74 mm[Hg] Arabella Marquez Other [employer] Other 10-16-2021 09:10-0400 Respiratory rate 16 /min Arabella Kryseda Other [employer] Other 10-16-2021 09:10-0400 SaO2% (BldA) [Mass fraction] 98 % Arabella Marquez Other [employer] Other 10-16-2021 09:10-0400 Systolic blood pressure 132 mm[Hg] Arabella Marquez Other [employer] Other 04-18-2021 09:10-0500 Body height 160.02 cm Arabella Marquez Other [employer] Other 04-18-2021 09:10-0500 Body mass index (BMI) [Ratio] 29.05 kg/m2 Arabella Kryseda Other [employer] Other 04-18-2021 09:10-0500 Body temperature 97 [degF] Arabella Marquez Other [employer] Other 04-18-2021 09:10-0500 Body weight 74.39 kg Arabella Kryseda Other [employer] Other 04-18-2021 09:10-0500 Diastolic blood pressure 82 mm[Hg] Arabella Marquez Other [employer] Other 04-18-2021 09:10-0500 Respiratory rate 16 /min Arabella Marquez Other [employer] Other 04-18-2021 09:10-0500 SaO2% (BldA) [Mass fraction] 96 % Arabella Marquez Other [employer] Other 04-18-2021 09:10-0500 Systolic blood pressure 134 mm[Hg] Arabella Marquez Other [employer] Other 04-17-2021 13:30-0500 Body height 160.02 cm Arabella Marquez [facility] 250 DO Work Phone: 04-17-2021 13:30-0500 Body mass index (BMI) [Ratio] 29.41 kg/m2 Arabella Suma Julissa [facility] 250 DO Work Phone: 04-17-2021 13:30-0500 Body surface area Derived from formula 1.79 m2 Arabella Marquez [facility] 250 DO Work Phone: 04-17-2021 13:30-0500 Body weight 75.3 kg Arabella Marquez [facility] 250 DO Work Phone: 04-17-2021 13:30-0500 Diastolic blood pressure 76 mm[Hg] Arabella Marquez [facility] 250 DO Work Phone: 04-17-2021 13:30-0500 Heart rate 72 /min Arabella Suma Marcanoeda [facility] 250 DO Work Phone: 04-17-2021 13:30-0500 Systolic blood pressure 118 mm[Hg] Arabella Marquez [facility] 250 DO Work Phone: 04-13-2021 09:41-0500 6.6 1 Arabella Moise [facility] [employer] Work Phone: Comment on above: [id number] 04-13-2021 09:41-0500 89 1 Arabella Moise [facility] [employer] Work Phone: Comment on above: [id number] Encounters Encounter Date Encounter Type Care Provider Facility Start: 04-30-2023 End: 04-30-2023 ambulatory Arabella Marquez Other [employer] Other Start: 04-30-2023 Office outpatient visit 25 minutes Arabella Marquez [facility] Start: 01-06-2023 End: 01-06-2023 ambulatory Arabella Marquez Other [employer] Other Start: 01-06-2023 Telephone encounter Arabella Marquez [facility] [place] Start: 01-03-2023 End: 01-03-2023 ambulatory Arabella Marquez Other [employer] Other Start: 01-03-2023 Telephone encounter Arabella Marquez [facility] Start: 10-29-[address] Arabella Marquez Facility: Start: 10-28-2022 End: 10-28-2022 ambulatory Arabella Marquez Other [employer] Other Start: 10-28-2022 Telephone encounter Arabella Marquez [facility] Start: 10-24-2022 End: 10-24-2022 ambulatory Arabella Marquez Other [employer] Other Start: 10-24-2022 Office outpatient visit 25 minutes Arabella Marquez [facility] Start: 07-10-2022 End: 07-10-2022 ambulatory Arabella Marquez Other [employer] Other Start: 07-10-2022 Telephone encounter Arabella Marquez [facility] [place] Start: 05-14-2022 End: 05-14-2022 ambulatory Arabella Marquez Other [employer] Other Start: 05-14-2022 Telephone encounter Arabella Marquez [facility] [place] Start: 04-23-2022 End: 04-23-2022 ambulatory Arabella Marquez Other [employer] Other Start: 04-23-2022 Office outpatient visit 25 minutes Arabella Marquez [facility] Start: 04-23-2022 Telephone encounter Arabella Marquez [facility] [place] Start: 04-18-2022 End: 04-19-[address] ARABELLA MARQUEZ Facility:[facility]1 Start: 02-04-2022 End: 02-04-2022 ambulatory Arabella Marquez Other [employer] Other Start: 02-04-2022 Telephone encounter Arabella Marquez [facility] [place] Start: 01-28-2022 Office outpatient visit 25 minutes Arabella Marquez Work Phone: [facility] 250 DO Work Phone: Start: 01-28-[address] Maria De Jesus Green Facility:[id number] Start: 01-11-2022 End: 01-12-2022 ambulatory MARY ANNE STARKEY Facility:[facility]1 Start: 12-17-2021 Patient encounter procedure [facility] [place] Work Phone: Start: 12-17-[address] Lynn Green Facility:[id number] Start: 10-16-2021 End: 10-16-2021 ambulatory Arabella Marquez Other [employer] Other Start: 10-16-2021 Office outpatient visit 25 minutes Arabella Marquez [facility] [place] Start: 10-12-2021 End: 10-13-[address] ARABELLA MARQUEZ Facility:[facility]1 Start: 07-17-2021 Telephone encounter Arabella Marquez [facility] [place] Start: 07-17-2021 End: 07-18-[address] ARABELLA MARQUEZ [employer] Other Start: 06-29-2021 End: 06-29-2021 ambulatory Arabella Marquez Other [employer] Other Start: 06-29-2021 Telephone encounter Arabella Marquez [facility] [place] Start: 06-27-2021 End: 06-27-2021 ambulatory Arabella Marquez Other [employer] Other Start: 06-27-2021 Telephone encounter Arabella Marquez [facility] Start: 04-18-2021 End: 04-18-2021 ambulatory Arabella Marquez Other [employer] Other Start: 04-18-2021 Office outpatient visit 25 minutes Arabella Marquez [facility] Start: 04-17-2021 Office outpatient visit 25 minutes Arabella Marquez [facility] 250 DO Work Phone: Start: 01-22-2018 Patient [...] Jesus Green, Status: Pen, Time: 2:00 PM [facility] 250 DO Work Phone: Start: 01-28-2022 FUV, Provider: Maria De Jesus Green, Status: Pen, Time: 2:30 PM FUV, Provider: Maria De Jesus Green, Status: Pen, Time: 2:30 PM [facility] [address] [place] Work Phone: Start: 12-07-2021 FUV, Provider: Maria De Jesus Green, Status: Pen, Time: 8:40 AM FUV, Provider: Maria De Jesus Green, Status: Pen, Time: 8:40 AM [facility] 250 DO Work Phone: Start: 10-30-2021 ECHO, Provider: SAND USKY [facility] 01,[id number], Status: Pen, Time: 7:45 AM ECHO, Provider: CHERELLE [facility] 01,[id number], Status: Pen, Time: 7:[address] [facility] 250 DO Work Phone: Immunizations Immunization Date Immunization Notes Care Provider Rosalba mancilla 02-09-2021 Pfizer-BioNTech COVID-19 Vacc 30 MCG/0.3ML Intramuscular Suspension Arabella Marquez [facility] 250 DO Work Phone: 06-15-2020 Pfizer-BioNTech COVID-19 Vacc 30 MCG/0.3ML Intramuscular Suspension Arabella Marquez [facility] 250 DO Work Phone: 05-25-2020 Pfizer-BioNTech COVID-19 Vacc 30 MCG/0.3ML Intramuscular Suspension Arabella Marquez [facility] 250 DO Work Phone: 02-25-2020 influenza, seasonal, injectable Arabella Marquez Other [employer] Other 02-25-2020 influenza, injectable, quadrivalent, contains preservative Arabella Marquez [facility] 250 DO Work Phone: 12-27-2019 influenza, seasonal, injectable Arabella Marquez Other [employer] Other 03-06-2018 pneumococcal conjugate vaccine, [address] [facility] 250 DO Work Phone: 01-02-2018 pneumococcal conjugate vaccine, [address] [facility] 250 DO Work Phone: NEGATED: Highlighted row has not occurred!01-08-2019 influenza, seasonal, injectable Patient Objection Arabella Marquez Other [employer] Other Payers Date Payer Category Payer [facility] [id number] 2022 Medicare [id number] 1959 Private Health Insurance [id number] 1952 Unknown [id number] 1952 Unknown [id number] 1952 Unknown [id number] 1952 Unknown [id number] 1952 Unknown [id number] 1952 Unknown [id number] 1952 Unknown [id number] 1952 Unknown [id number] Private Health Insurance [id number] Unknown [employer] Social History Date Type Detail Facility No illicit drug use No illicit drug use [place] [id number] DO Work Phone: Sex Assigned At Sex Assigned At [facility] [employer] Other Clinical Notes 10-11-2009 to 04-30-2023 Note Date & Type Note Facility 04-30-2023 Evaluation note Encounter Date Diagnosis Assessment Notes Mar, Diabetes mellitus, type 2 (ICD-10 - E11.9) Discussed blood sugar results with patient today. Glucose is 115. HgA1C is down from 6.4 to 6.2. I did recommend that she continue to monitor her intake of carbs and sugars. Stay active. Her A1C continues to improve, will continue to monitor. Mar, Dysphagia (ICD-10 - R13.10) She voices that at times she feels like things are getting stuck in her throat. She did have an EGD done when she had her colonoscopy done. She took Omeprazole for three weeks after the procedure was done but could not tell if this improved her symptoms or not. If she finds that this becomes more noticeable she should let me know and we would call in the [facility] for her to see if this helps improve this issue. Nothing was seen on the EGD that would effect the swallowing. She voices that she has had this issue for a long time. If she calls we will send in [facility] for 1-2 months to see if her swallowing issue resolves. Mar, Low hemoglobin (ICD-10 - D64.9) Her hemoglobin has improved and is up from 12.7 to 13.2. Will continue to monitor. Mar, Hypertension (ICD-10 - I10) Blood pressure is controlled. She saw Dr. Green in October (2022) and he wanted to see her back in nine months (July 2023). I will send him a copy of her lab work results. Mar, Hyperlipidemia (ICD-10 - E78.5) Discussed her cholesterol results with her today. Total is 187. HDL is 62. LDL is 101. Triglycerides are 120. VLDL is 24. She is to continue with above medication daily and watch intake of carbs and sugars. Stay active. Mar, Weight loss (ICD-10 - R63.4) She has lost 6 pounds since last seen. Her TSH is normal at 1.231. Mar, Macrocytosis (ICD-10 - D75.89) Her Vitamin B12 level is 428. Folate is 21.50. She admits that she is unable to take the B12 vitamin when she travels. I did recommend that she try to take the B12 more frequently. Mar, Depression (ICD-10 - F32.9) She does continue to use and benefit from the above medication daily. 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 Mar, Allergic rhinitis (ICD-10 - J30.9) Continue with above medication as directed. Mar, Other half-way (current) drug therapy (ICD-10 - Z79.899) Mar, Lacunar infarction (ICD-10 - I63.81) Continue with above medication daily as directed. Mar, Other We discussed her colonoscopy that she had done in January (2022). She had to take Prilosec for three weeks after her procedure was done and voices that she did not feel any different after she took the medication. She did not need to return unless the medication did not work but she cannot tell if it worked or not. She will have a repeat colonoscopy done in five years. [employer] Other 10-06-2023 Evaluation note* Encounter Date Diagnosis Assessment Notes Treatment Notes Treatment Clinical Notes Dec, Hyperlipidemia (ICD-10 - E78.5) [employer] Other 07-27-2023 Evaluation note* Encounter Date Diagnosis Assessment Notes [...] foot only one at a time (not [place] style) and once in awhile it will [...] she is doing alot of traveling to [place] to visit her daughter and grandkids now [...] see Dr. Green on 10-29-22. Sep, Other half-way (current) drug therapy (ICD-10 - Z79.899) Sep, Foot pain (ICD-10 - M79.673) bilateral Will order an EMG to rule out abnormalities. Her left foot is worse so I will order an x-ray of her left foot. She can call for results. [employer] Other 05-09-2023 History general Narrative - Reported* [...] History hearing aids 12/11/15 Surgical History colonoscopy [facility]- normal, needs repeat in 10 years (2025) 02/2016 Surgical History mammogram - Brynn 03/[address] Yoder kidney stones Surgical History ECHO 01/22/18 Hospitalization History see above surgical histo ry [employer] Other 03-10-2023 History general Narrative - Reported* Type Description Date Medical History Mammogram 08/06 Medical History Stress test 2007 [facility] Medical History PAP 11-2007 [facility] Medical History EMG (carpal tunnel in [...] History hearing aids 12/11/15 Surgical History colonoscopy [facility]- normal, needs repeat in 10 years (2025) 02/2016 Surgical History mammogram - Brynn 03/[address] Yoder kidney stones Surgical History ECHO 01/22/18 Hospitalization History see above surgical [employer] Other 02-14-2023 Evaluation note* Encounter Date Diagnosis Assessment Notes Treatment Notes Treatment Clinical Notes May, Diabetes mellitus, type 2 (ICD-10 - E11.9) May, 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 Mar, Other half-way (current) drug therapy (ICD-10 - Z79.899) Mar, [...] Pneumonia vaccine at her local retail pharmacy. [employer] Other 07-19-2022 Evaluation note* Encounter Date Diagnosis [...] cream because she loves it. 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 She voices that she will see Dr. Green in the fall. Sep, Other She saw Dr. Yoder last month who removed a kidney stone from the left side. She will continue to follow with him and will see him in November (2021). [employer] Other 05-09-2022 History general Narrative - Reported* [...] Hospitalization History see above surgical histo ry [employer] Other 05-06-2022 NoteHISTORY: Bone density screening. COMPARISON: [...] signed by Tony Garcia on 08/06/2021 [id number]04-19-2022 Evaluation note* Encounter Date Diagnosis Assessment Notes Treatment Notes Treatment Clinical Notes Jun, Pulmonary nodule (ICD-10 - R91.1) [employer] Other 04-01-2022 Evaluation note* Encounter Date Diagnosis [...] calcified. She may need to see a solution sales senior executive to discuss when she should have another CT scan done, I would likely refer her to Dr. Starkey. She is agreeable to this if it is necessary. She has never been a smoker but is exposed to second hand smoke and has been for years (her ). Jun, Other 9:58 AM -10:08 AM [employer] Other 03-10-2022 History general Narrative - Reported* [...] History hearing aids 12/11/15 Surgical History colonoscopy [facility]- normal, needs repeat in 10 years (2025) 02/2016 Surgical History mammogram - Brynn 03/[address] Yoder kidney stones Surgical History ECHO 01/22/18 Hospitalization History see above surgical histo ry [employer] Other 01-19-2022 Evaluation note* Encounter Date Diagnosis [...] either a nurse practitioner or a physicians middle school assistant principal. She normally gets a letter once a [...] to follow with Dr. 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 She voices that she has an appointment [...] above medication daily as directed. Mar, Other half-way (current) drug therapy (ICD-10 - Z79.899) Mar, [...] of sleep apnea. Will continue to monitor. [employer] Other 07-14-2010 History general Narrative - Reported* [...] History Refused colonoscopy and Seracult cards x3- --13 Medical History Refuses Colonoscopy and Seracult cards 714 Medical History Refuses Colonoscopy and Seracult card x1 04-20-14 Medical History Refuses Colonoscopy and Seracult card x1 15 Surgical History D&C 2004 Surgical History hearing aids 12/11/15 Surgical History colonoscopy [facility]- normal, needs repeat in 10 years (2025) 02/2016 Surgical History mammogram - [facility] 03/[address] Yoder kidney stones Surgical History ECHO 01/22/18 Hospitalization History see above surgical [employer] Other 07-14-2010 History general Narrative - Reported* Type Description Date Medical History Mammogram 08/06 Medical History Stress test 2007 [facility] Medical History PAP 11-2007 [facility] Medical History EMG (carpal tunnel in [...] Medical History Refuses Colonoscopy and Seracult cards 714 Medical History Refuses Colonoscopy and Seracult card x1 15 Medical History Refuses Colonoscopy and Seracult card x1 15 Medical History COVID 01/2022 Surgical History D&C 2004 Surgical History hearing aids 12/11/15 Surgical History colonoscopy [facility]- normal, needs repeat in 10 years (2025) 02/2016 Surgical History mammogram - [facility] 03/[address] Yoder kidney stones Surgical History ECHO 01/22/18 Hospitalization History see above [employer] Other 07-14-2010 History general Narrative - Reported* [...] History hearing aids 12/11/15 Surgical History colonoscopy [facility]- normal, needs repeat in 10 years (2025) 02/2016 Surgical History mammogram - Brynn 03/[address] Yoder kidney stones Surgical History ECHO 01/22/[address] 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: History of Present illness Narrative* [...] back in the office in 9 months [facility] Work Phone: History of Present illness Narrative* [...] back in the office in [address] Work Phone: Summary Purpose Family History Unknown [...] Reason for Referral Reason appt consult to benny baum pulmonary nodules found on CT chest Diagnosis 1 Pulmonary nodule (R9 1.1) Referral Organization [facility] Family Michelle Chery Referring Provider First Name Arabella Referring Provider Last Name Julissa Referring Provider Specialty Family Prac orly Referred Organization Unknown Facility Referred Provider Mary Anne Starkey Referred Provider Specialty Pulmonary Di seases Referral Priority Routine General Notes Carolina Schulz 07/17/2021 11:44:22 AM > referral faxed with visit note, CT report and insurance card. pt understands she will be contacted to schedule this appt. Additional Source Comments INFORMATION SOURCE (unrecogn ized section and content) DATE CREATED AUTHOR 02/27/2018 [facility] DATE CREATED AUTHOR AUTHOR'S ORGANIZ ATION 08/06/2021 [facility] dical Specialist DATE CREATED AUTHOR AUTHOR'S ORGANIZ ATION 01/21/2022 [facility] DATE CREATED AUTHOR AUTHOR'S ORGANIZ ATION 04/24/2022 [facility] DATE CREATED AUTHOR AUTHOR'S ORGANIZ ATION 10/30/2022 [facility] DATE CREATED AUTHOR AUTHOR'S ORGANIZ ATION 10/30/2022 [employer] REASON FOR VISIT (unrecogniz ed section and content) review labsclinicaldiscuss C T resultsCT scan resultsreview labscovidClinicalreview labsrefillsMammogramreview labsNeurology Referral UpdaterefillClinicalreview labs FOR RECORDS PERTAINING TO PATIENTS WHO ARE [...] BE BASED ON THE PRIMARY CLINICAL RECORDS. [employer] provides no warranty or guarantee of the accuracy or completeness of information in this document.
[2023-10-24 10:00] LABS: Estimated Average Glucose 126 mg/dL
[2023-10-24 10:10] LABS: Basophils Absolute Auto 0.1 10^3/uL (0.0-0.1); Basophils Percent Auto 0.6 % (0.2-2.0); Eosinophils Absolute Auto 0.5 10^3/uL (0.0-0.7); Eosinophils Percent Auto 4.8 % (0.9-7.0); Hematocrit 42.7 % (36.0-48.0); Hemoglobin 13.5 g/dL (12.0-16.0); Immature Granulocytes Abs Auto 0.03 10^3/uL (0.00-0.03); Immature Granulocytes Pct Auto 0.3 % (0.0-0.5); Lymphocytes Absolute Auto 2.7 10^3/uL (1.2-3.8); Mean Corpuscular HGB Conc 31.6 g/dL (29.9-35.2); Mean Corpuscular Hemoglobin 29.2 pg (26.7-34.0); Mean Corpuscular Volume 92.2 fL (81.0-99.0); Mean Platelet Volume 9.6 fL (9.5-13.5); Monocytes Absolute Auto 0.8 10^3/uL (0.3-0.8); Monocytes Percent Auto 8.2 % (1.7-12.0); Neutrophils Absolute Auto 5.4 10^3/uL (1.4-6.5); Neutrophils Percent Auto 57.1 % (43.0-75.0); Platelet Count 335 10^3/uL (150-450); Red Blood Count 4.63 10^6/uL (4.20-5.40); Red Cell Distribution Width 13.2 % (11.0-15.0); White Blood Count 9.4 10^3/uL (4.0-11.0)
[2023-10-24 10:17] LABS: Creatinine Urine Random 84.12 mg/dL (20.00-300.00); Microalbum Creatinine Ratio Ur 43.9 mg/g (0.0-29.9); Microalbumin Urine Random 3.7 mg/dL (<=30.0)
[2023-10-24 10:22] LABS: Alanine Aminotransferase 23 U/L (14-59); Albumin Globulin Ratio 1.1; Albumin Level 3.9 g/dL (3.4-5.0); Alkaline Phosphatase 74 U/L (46-116); Anion Gap 11.6; Aspartate Amino Transferase 16 U/L (15-37); BUN Creatinine Ratio 15.4; Bilirubin Total 1.3 mg/dL (0.2-1.0); Calcium 9.3 mg/dL (8.5-10.1); Carbon Dioxide 31.1 mmol/L (21.0-32.0); Chloride 103 mmol/L (98-107); Chol HDL Ratio 2.7; Cholesterol 160 mg/dL (<=200); Estimated GFR (African America >60 (>=60); Estimated GFR (Non-African Ame >60 (>=60); Globulin 3.5 g/dL; Glucose 109 mg/dL (74-106); HDL Cholesterol 59 mg/dL (40-60); LDL Cholesterol Calculated 77.2 mg/dL; Potassium 3.7 mmol/L (3.5-5.1); Sodium 142 mmol/L (136-145); Total Protein 7.4 g/dL (6.4-8.2); Triglycerides 119 mg/dL (<=150); VLDL CHOLESTEROL 23.8 mg/dL
[2023-10-25 04:08] LABS: Vitamin B12 461 pg/mL (232-1245)
== END 2023-10-24 09:31 | disposition home or self-care (01) ==
LOC: LAB 09:33
PROVIDERS: PCP Family Medicine; Visit Provider Family Medicine
DX: E78.5 Hyperlipidemia, unspecified (principal); E11.9 Type 2 diabetes mellitus without complications; D75.89 Other specified diseases of blood and blood-forming organs; Z79.899 Other long term (current) drug therapy
CPT/HCPCS: 36415; 80053; 80061; 82043; 82570; 82607; 82746; 83036; 85025

== ENCOUNTER 2024-05-07 09:30 | Outpatient (OUT) | payer MEDICARE, BC, SELFPAY ==
--- OUTSIDE RECORDS SUMMARY | 2024-05-07 09:38 | XMS_ITS | CCD ---
Author Organization [facility] Inform ion [facility] Care Team Providers Care Erp Developer Name Role Phone MARIA DE JESUS GREEN Unavailable Unavailable ARABELLA MARQUEZ Unavailable Unavailable Arabella Marquez Unavailable Unavailable Unavailable Unavailable Arabella Marquez Unavailable Arabella Marquez Unavailable Norma, Dr. Bailey Attending Unavail able Norma, Dr. Bailey Referring Unavail able Arabella Marquez Primary Care Unavailable GIREDA, DR BELL Attending Unavailable GIRVIN, DR BELL Consulting Unavailable GIRVIN, DR BELL Primary Care Unavailable GIRVIN, DR BELL Admitting Unavailable ZIEBER, DR DARIEL Hinds Consulting Unavailable GIRVIN, DR BELL Admitting Unavailable GIRVIN, DR BELL Attending Unavailable GIRVIN, DR BELL Consulting Unavailable GIRVIN, DR BELL Primary Care Unavailable SAMSA, MARY ANNE Attending Unavailable SAMSA, MARY ANNE Consulting Unavailable SAMMARY ANNE WEEMS Admitting Unavailable GIRVIN, DR BELL Primary Care Unavailable LALA, ARABELLA Consulting Unavailable GIRVIN, DR BELL Attending Unavailable GIRVIN, DR BELL Consulting Unavailable GIRVIN, DR BELL Primary Care Unavailable GIRVIN, DR BELL Admitting Unavailable Trabouljini, Dr. Goss Referring Unavaila ble Norma, Dr. Goss Attending Unavaila ble Julissa, Dr. Arabella Sanchez Primary Care Unavaila ble Gireda, Dr. Arabella Sanchez Primary Care Unavaila ble Traboulkartik, Dr. Goss Referring Unavaila ble Traboulkartik, Dr. Goss Attending Unavaila ble MARIA DE JESUS GREEN Attending Unavailable ARABELLA MARQUEZ Primary Care Unavailable ARGENIS HO Attending Unavailable ARABELLA MARQUEZ Referring Unavailable ARABELLA MARQUEZ Primary Care Unavailable Unavailable Primary Care Provider UnavailNAKUL Mcgrath Referring Unavailable NAKUL LUCIA Attending Unavailable NAKUL LUCIA Referring Unavailable Arabella Marquez DO Primary Care Provider SUNDAY YODER Referring Unavailable ARABELLA MARQUEZ Primary Care Unavailable Allergies Allergy Classification Reported Allergen(s) Allergy Type Date of Onset Reaction(s) Facility (6 sources) egg Allergy to substance (finding) Unknown -[facility] 250 DO Work Phone: (5 sources) egg extract; Translations: [EGG] Drug Allergy 4 Other (See Comments) [facility] 3 Repository Medications Current Medications Medication Drug Class(es) Dates Sig (Normalized) Sig (Original) acetaminophen 325 mg / HYDROcodone bitartrate 5 mg oral tablet (2 sources) Opioid Agonist Start: 09-11-2021 HYDROcodone-aceta minophen (NORCO) 5-325 mg per tablet Indications: Kidney stones Take 1 tablet by mouth every 6 (six) hours as needed for pain for up to 6 doses. Max Daily Amount: 4 tablets 6 tablet 09/11/2021 Active aspirin 81 mg delayed release oral tablet (20 sources) Platelet Aggregation Inhibitor, Nonsteroidal Anti-inflammatory Drug Start: 10-30-2023 Aspirin (Adult Low Dose Aspirin) 81 mg tablet,delayed release (DR/EC) Active 81 MG PO Daily October 30, 2023 12:00am Start: 04-17-2021 take 1 tablet by seth th once daily Aspirin EC Low Dose 81 MG Oral Tablet Delayed Release TAKE 1 TABLET DAILY DIRECTED. Quantity: 90 Refills: 3 Ordered: 28-Jan-2022 Maria De Jesus Green MD Start : 17-Apr-2021 Active take 1 tablet by seth th in the morning aspirin 325 mg tablet Take 1 tablet (325 mg total) by mouth in the morning. Active take 1 tablet by seth th once daily at mealtime Aspirin 81 81 MG 1 tablet Orally qd with food Active atorvastatin 40 mg oral tablet (20 sources) HMG-CoA Reductase Inhibitor Start: 03-16-2018 take 40 mg by mouth once daily Atorvastatin Active 40 MG PO Daily October 30, 2023 12:00am 12 hr cetirizine hydrochloride 5 mg / pseudoephedrine hydrochloride 120 mg extended release oral tablet (2 sources) alpha-Adrenergic Agonist, Histamine-1 Receptor Antagonist take 1 tablet by mouth every twelve hours in the morning cetirizine-pseudoe phedrine (ZyrTEC-D) 5-120 mg per 12 hr tablet Take 1 tablet by mouth in the morning and 1 tablet before bedtime. Active 24 hr fexofenadine hydrochloride 180 mg / pseudoephedrine hydrochloride 240 mg extended release oral tablet (15 sources) alpha-Adrenergic Agonist, Histamine-1 Receptor Antagonist Start: 10-11-2020 take 1 tablet by mouth every twenty-four hours Fexofenadine-Pseud oephed ER 180-240 MG 1 tablet Orally Once a day prn 14 Sep, 2020 Active gabapentin 300 mg oral capsule (20 sources) Anti-epileptic Agent Start: 10-30-2023 take 300 mg by mouth twice daily Gabapentin Active 300 MG PO Twice daily October 30, 2023 9:43am Start: 10-21-2023 End: 10-30-2023 take 1 capsule by mouth twice daily Gabapentin Discontinued 0 .ROUTE .COMPLEX 180 October 21, 2023 9:58am October 30, 2023 9:44am TAKE 1 CAPSULE BY MOUTH TWICE A DAY Start: 10-21-2023 End: 10-21-2023 take 300 mg by mouth twice daily Gabapentin Discontinu ed 300 MG PO Twice daily October 21, 2023 12:00am October 21, 2023 9:58am Start: 02-21-2021 take 1 capsule by [facility] three times daily gabapentin (NEURONTIN) 300 mg capsule Take 1 capsule (300 mg total) by mouth 3 (three) times a day. 02/21/2021 Active take 1 capsule by [facility] twice daily Gabapentin 300 MG TAKE 1 CAPSULE BY MOUTH TWICE A DAY FOR 90 DAYS Active take 2 capsules by out once daily Gabapentin 300 MG Oral Capsule TAKE 2 CAPSULE Daily Quantity: 0 Refills: 0 Ordered: 17-Apr-2021 DO Active losartan potassium 50 mg oral tablet (20 sources) Angiotensin 2 Receptor Neha Start: 10-30-2023 End: 10-30-2023 take 50 mg by mouth once daily Losartan Active 50 MG PO Daily October 30, 2023 9:43am take 2 tablets by mouth in the m orning losartan (COZAAR) 25 mg tablet Take 2 tablets (50 mg total) by mouth in the morning. Active take 1 tablet by mouth once jade y Losartan Potassium 50 MG TAKE 1 TABLET BY MOUTH EVERY DAY FOR 90 DAYS Active metFORMIN hydrochloride 500 mg oral tablet (20 sources) Biguanide Start: 10-30-2023 take 1 tablet by mouth at dinner Metformin Active 500 MG PO .COMPLEX October 30, 2023 12:00am 500 mg orally TAKE 2 TABLETS BY MOUTH WITH BREAKFAST AND TAKE 1 TABLET WITH EVENING MEAL; take 2 tablets by mo uth at [...] release oral tablet (20 sources) beta-Adrenergic Neha Start: 10-30-2023 End: 10-30-2023 take 200 mg by mouth once daily Metoprolol Succinate Active 200 MG PO Daily October 30, 2023 9:45am take 1 tablet by seth th every twenty-four hours in the morning metoprolol succinate XL (TOPROL-XL) 200 mg 24 hr tablet Take 1 tablet (200 mg total) by mouth in the morning. Active take 1 tablet by mouth once jade y Metoprolol Succinate ER 200 MG TAKE 1 TABLET BY MOUTH EVERY DAY Active montelukast 10 mg oral tablet (1 source) Leukotriene Receptor Antagonist Start: 10-30-2023 take 10 mg by mouth once daily Montelukast Active 10 MG PO Daily October 30, 2023 12:00am predniSONE 20 mg oral tablet (1 source) Start: 10-30-2023 take 2 tablets by mouth once daily at mealtime Prednisone Active 0 PO .COMPLEX 10 5 October 30, 2023 12:00am take 2 (20 MG) tablets orally QD x5 days with food or milk; triamcinolone acetonide 0.055 mg/actuat metered dose nasal spray (16 sources) Corticosteroid Start: 10-16-2021 take 2 spray(s) nasal route once daily Nasacort Allergy 24HR 55 MCG/ACT 2 sprays each nostril Nasally Once a day Sep, Active Start: 01-08-2019 KENALOG - 10 m g Dec, 1.5 cc 24 hr venlafaxine 75 mg extended release oral capsule (20 sources) Serotonin and Norepinephrine Reuptake Inhibitor Start: 10-30-2023 End: 10-30-2023 take 75 mg by mouth once daily Venlafaxine Active 75 MG PO Daily October 30, 2023 9:45am take 6 tablets by mo ut in the morning, then take 6 tablets by mouth at bedtime venlafaxine (EFFEXOR) 25 mg tablet Take 6 tablets (150 mg total) by mouth in the morning and 6 tablets (150 mg total) before bedtime. Active take 1 capsule by mo ut once daily at mealtime Venlafaxine HCl ER 75 MG TAKE 1 CAPSULE BY MOUTH EVERY DAY WITH FOOD FOR 90 DAYS Active take 1 capsule by mo uth once daily at mealtime Effexor XR 150 MG Oral Capsule Extended Release 24 Hour TAKE 1 CAPSULE ONCE DAILY WITH FOOD. Quantity: 0 Refills: 0 Ordered: 17-Apr-2021 DO Active vitamin b12 1 mg oral capsule (2 sources) Vitamin B12 Start: 10-30-2023 take 1000 ug by mouth every other day Cyanocobalamin (Vitamin B-12) Active 1000 MCG PO every other day October 30, 2023 12:00am Start: 10-16-2021 [facility] Vitamin B12 1000 MCG [...] 100MG as directed Orally bid Jan, Active Problems Active Problems Problem Classification Problem Date Documented Da te Episodic/Chronic Acute cerebrovascular disease (20 sources) Cerebrovascular accident; Translations: [Cerebral artery occlusion, unspecified with cerebral infarction] Onset: 2 Resolved: 2 Chronic Calculus of urinary tract (4 sources) Kidney stone; Translations: [Calculus of kidney] Onset: 8 01-14-2023 Episodic Cardiac dysrhythmias (1 source) Tachycardia, unspecified Episodic [...] hypertension (1 source) Essential hypertension Onset: 8 Menopausal disorders (2 sources) Atrophy of vagina; Translations: [Postmenopausal atrophic vaginitis] 01-07-2024 Chronic Mood disorders (20 sources) Major depressive disorder, single episode, unspecified; Translations: [Depression] Onset: 2 Resolved: 2 Chronic Other aftercare (6 sources) Other bed bug exterminator (current) drug therapy; Translations: [OTH MCFP CURRENT DRUG THERAPY] Onset: 2 Resolved: 2 Episodic Other bone disease and musculoskeletal deformities (2 sources) Osteopenia; Translations: [Other specified disorders of bone density and structure, right thigh] 01-07-2024 Episodic Other connective tissue disease (2 sources) Pain in unspecified foot Episodic Other gastrointestinal disorders (1 source) Dysphagia; Translations: [Dysphagia, unspecified] Episodic Other gastrointestinal disorders (1 source) Dysphagia, unspecified Episodic Other gastrointestinal disorders (1 source) Change in stool caliber; Translations: [Other fecal abnormalities] 10-30-2023 Episodic Other hematologic conditions (12 sources) Macrocytosis; Translations: [Other specified diseases of blood and blood-forming organs] 10-30-2023 Chronic Other hematologic conditions (9 sources) Other specified diseases of blood and blood-forming organs; Translations: [Other specified diseases of blood and blood-forming organs] Onset: 2 Resolved: 2 Chronic Other lower respiratory disease (6 sources) Dyspnea on exertion; Translations: [Shortness of breath] Episodic Other lower respiratory disease (14 sources) Nodule of lung; Translations: [Solitary pulmonary nodule] 10-30-2023 Episodic Other lower respiratory disease (8 sources) Solitary pulmonary nodule; Translations: [SOLITARY PULMONARY NODULE] Onset: 2 Resolved: 2 Episodic Other lower respiratory disease (1 source) Multiple nodules of lung; Translations: [Other nonspecific abnormal finding of lung field] Episodic Other lower respiratory disease (7 sources) Other nonspecific abnormal finding of lung field; Translations: [OTH NONSPECIFIC ABN FIND LNG FIELD] Onset: 2 Episodic Other lower respiratory disease (2 sources) Shortness of breath; Translations: [Shortness of breath] Onset: 4 Episodic Other nervous system disorders (15 sources) [...] Episodic Other nutritional; endocrine; and metabolic disorders (4 sources) Abnormal weight loss; Translations: [Loss of weight] Onset: 2 Resolved: 2 Episodic Other nutritional; endocrine; and metabolic disorders (3 sources) Abnormal weight gain; Translations: [ABNORMAL WEIGHT GAIN] Onset: 2 Resolved: 2 Episodic Other nutritional; endocrine; and metabolic disorders (1 source) Weight loss; Translations: [Abnormal weight loss] 10-30-2023 Episodic Other nutritional; endocrine; and metabolic disorders (2 sources) Body mass index (BMI) 26.0-26.9, adult; Translations: [Body mass index (BMI) 26.0-26.9, adult] Onset: 4 Episodic Other screening for suspected conditions (not mental disorders or infectious disease) (14 sources) Abnormal electrocardiogram [ECG] [EKG]; Translations: [Electrocardiogram [...] primary cardiomyopathies] Onset: 2 Resolved: 2 Chronic Poisoning by nonmedicinal substances (2 sources) Wasp sting; Translations: [Toxic effect of venom of wasps, accidental (unintentional), initial encounter] 10-30-2023 Episodic Prolapse of female genital organs (2 sources) Cystocele; Translations: [Cystocele, unspecified] 01-07-2024 Chronic Residual codes; unclassified (2 sources) Other specified health status; Translations: [Other specified health status] Onset: 4 Episodic Residual codes; unclassified (2 sources) Menopause present; Translations: [Asymptomatic menopausal state] 01-07-2024 Episodic Unclassified (2 sources) Abnormal electrocardiogram [ECG] [EKG] [...] Classification Problem Date Documented Da te Episodic/Chronic Genitourinary symptoms and ill-defined conditions (6 sources) Hematuria, unspecified; Translations: [Nocturia] Onset: 11-10-2019 Resolved: 10-16-2021 Episodic Unclassified (6 sources) Never smoked tobacco; Translations: [Never a smoker] Results Test Name Value Interpretation Reference Range Facility XR ABDOMEN AP 1 VWon 024 XR ABDOMEN AP 1 VW XR ABDOMEN AP 1 VW Abdomen single view COMPARISON: 12/03/2022 HISTORY: Nephrolithiasis.. Findings: AP supine view of the abdomen. There is a nonobstructive bowel gas pattern. No free gas. Gas-filled nondistended bowel loops are seen. The renal fossa is obscured bilaterally by overlying fecal residue and air within colonic loops. Therefore, possibility of renal stones cannot be excluded. Metallic clips in the pelvis from prior surgery and calcified phlebolith visualized. Lumbar spondylosis was mild bony spurring at multiple levels. Gastric gaseous distention. Impression: Nonobstructive, nonspecific bowel gas pattern. Limited visualization of the renal fossa due to overlying bowel contents. Finalized by Lexi Wang MD on 01/20/2024 1:05 PM [facility] BI MAMMOGRAM SCREENING TOMOS YNTHESIS BILATERALon 01-07-2024 BI MAMMOGRAM SCREENING TOMOSYNTHESIS BILATERAL This is a summary report. The complete report is available in the patient's medical record. If you cannot access the medical record, please contact the sending organization for a detailed fax or copy. BI MAMMOGRAM SCREENING TOMOSYNTHESIS BILATERAL:01/07/2024 11:00 AM CLINICAL HISTORY:yearly COMPARISONS: May 27, 2019 through August 14, 2022 . TECHNIQUE: Routine full field 3D breast tomosynthesis was performed bilaterally. FINDINGS: Scattered fibroglandular densities are noted with stable asymmetry. There are no developing masses, suspicious microcalcifications, or areas of architectural distortion identified on today's examination. There is no significant change when compared to the prior examinations identified, given differences in technique and positioning. IMPRESSION: BI-RADS 1- NEGATIVE. ROUTINE FOLLOW-UP MAMMOGRAPHY IS SUGGESTED IN ONE YEAR. DENSITY: Scattered fibroglandular densities. Category B Board Certified Radiologists. Accredited by the ACR and FDA. MAMMOGRAPHY IS VERY IMPORTANT TO YOUR HEALTH. THE [employer] GUIDELINES RECOMMEND THAT WOMEN 40 YEARS OF AGE AND OLDER SHOULD HAVE A MAMMOGRAM EVERY YEAR. A REMINDER LETTER WILL BE SENT AT THE APPROPRIATE TIME. ELECTRONICALLY SIGNED BY: Evelyn Whitley, Normal Not Available Basophils Auto (Bld) [#/Vol] on 10-24-2023 Basophils (Bld) [#/Vol] 0.1 10 3/uL 0.0-0.1 [facility] Basophils/100 WBC Auto (Bld) on 10-24-2023 Basophils/100 WBC (Bld) 0.6 % 0.2-2.0 [facility] Cholesterol in LDL Calc [Mas s/Vol]on 10-24-2023 Cholesterol in LDL [Mass/Vol] 77.2 mg/dL [facility] Comment on above: <100 mg/dl [id number] 0-129 mg/dl NEAR OR ABOVE [id number] mg/dl BORDERLINE [id number] mg/dl HIGH>190 mg/dl VERY HIGH Cholesterol in VLDL Calc [Ma ss/Vol]on 10-24-2023 Cholesterol in VLDL [Mass/Vol] 23.8 mg/dL [facility] Eosinophils/100 WBC Auto (Bl d)on 10-24-2023 Eosinophils/100 WBC (Bld) 4.8 % 0.9-7.0 [facility] Erythrocyte distribution wid th Auto (RBC) [Ratio]on 10-24-2023 Erythrocyte distribution width (RBC) [Ratio] 13.2 % 11.0-15.0 [facility] Estimated glomerular filtrat ion rate (GFR) non- Americanon 10-24-2023 GFR/1.73 sq M.predicted among non-blacks MDRD (S/P/Bld) [Vol rate/Area] mL/min/{1.73_m2} >=60 [facility] Globulin Calc (S) [Mass/Vol] on 10-24-2023 Globulin (S) [Mass/Vol] 3.5 g/dL [facility] Glucose mean value [Mass/vol ume] in Blood Estimated from glycated hemoglobinon 10-24-2023 Average glucose Estimated from glycated hemoglobin (Bld) [Mass/Vol] 126 mg/dL [facility] Hematocrit Auto (Bld) [Volum e fraction]on 10-24-2023 Hematocrit (Bld) [Volume fraction] 42.7 % 36.0-48.0 [facility] Hemoglobin [Mass/volume] in Bloodon 10-24-2023 Hemoglobin (Bld) [Mass/Vol] 13.5 g/dL 12.0-16.0 [facility] Laboratory - Chemistry and C hemistry - challengeon 10-24-2023 Albumin [Mass/Vol] 3.9 g/dL 3.4-5.0 [facility] ALP [Catalytic activity/Vol] 74 U/L 46-116 [facility] ALT [Catalytic activity/Vol] 23 U/L 14-59 [facility] AST [Catalytic activity/Vol] 16 U/L 15-37 [facility] Bilirubin [Mass/Vol] 1.3 mg/dL High 0.2-1.0 [facility] Calcium [Mass/Vol] 9.3 mg/dL 8.5-10.1 [facility] Chloride [Moles/Vol] 103 mmol/L 98-107 [facility] Cholesterol [Mass/Vol] 160 mg/dL <=200 [facility] Cholesterol in HDL [Mass/Vol] 59 mg/dL 40-60 [facility] Comment on above: > or =60 mg/dl - LOW CARDIOVASCULAR RISK<40 mg/dl - HIGH CARDIOVASCULAR RISK CO2 [Moles/Vol] 31.1 mmol/L 21.0-32.0 [facility] Cobalamin (Vitamin B12) [Mass/Vol] 461 pg/mL 232-1245 [facility] Comment on above: Performed at: [facility] [address] [id number] Director: Brandan Macedo PhD, Phone: [phone] Creatinine [Mass/Vol] 0.78 mg/dL 0.55-1.02 [facility] GFR/1.73 sq M.predicted MDRD (S/P/Bld) [Vol rate/Area] mL/min/{1.73_m2} >=60 [facility] Glucose [Mass/Vol] 109 mg/dL High 74-106 [facility] Potassium [Moles/Vol] 3.7 mmol/L 3.5-5.1 [facility] Protein [Mass/Vol] 7.4 g/dL 6.4-8.2 [facility] Sodium [Moles/Vol] 142 mmol/L 136-145 [facility] Triglyceride [Mass/Vol] 119 mg/dL <=150 [facility] Urea nitrogen [Mass/Vol] 12.0 mg/dL 7.0-18.0 [facility] Urea nitrogen/Creatinine [Mass ratio] 15.4 mg/mg [facility] Laboratory - Hematology and Cell countson 10-24-2023 HbA1c (Bld) [Mass fraction] 6.0 % 4.5-6.2 [facility] Comment on above: ADA RECOMMENDED LIMI T 4.0 - 6.0ADA THERAPEUTIC TARGET < 7.0ACTION SUGGESTED> 7.0 Immature granulocytes/100 WBC (Bld) 0.3 % 0.0-0.5 [facility] Leukocytes [#/volume] correc rey for nucleated erythrocytes in Blood by Automated counon 10-24-2023 WBC corrected for nucl RBC Auto (Bld) [#/Vol] 9.4 10 3/uL 4.0-11.0 [facility] Lymphocytes Auto (Bld) [#/Vo l]on 10-24-2023 Lymphocytes (Bld) [#/Vol] 2.7 10 3/uL 1.2-3.8 [facility] Lymphocytes/100 WBC Auto (Bl d)on 10-24-2023 Lymphocytes/100 WBC (Bld) 29.0 % 20.5-60.0 [facility] MCH Auto (RBC) [Entitic mass ]on 10-24-2023 MCH (RBC) [Entitic mass] 29.2 pg 26.7-34.0 [facility] MCHC Auto (RBC) [Mass/Vol]on 10-24-2023 MCHC (RBC) [Mass/Vol] 31.6 g/dL 29.9-35.2 [facility] MCV Auto (RBC) [Entitic vol] on 10-24-2023 MCV (RBC) [Entitic vol] 92.2 fL 81.0-99.0 [facility] Microalbumin [Mass/volume] i n Urineon 10-24-2023 Albumin DL <= 20 mg/L (U) [Mass/Vol] 3.7 mg/dL <=30.0 [facility] Monocytes Auto (Bld) [#/Vol] on 10-24-2023 Monocytes (Bld) [#/Vol] 0.8 10 3/uL 0.3-0.8 [facility] Monocytes/100 WBC Auto (Bld) on 10-24-2023 Monocytes/100 WBC (Bld) 8.2 % 1.7-12.0 [facility] Neutrophils Auto (Bld) [#/Vo l]on 10-24-2023 Neutrophils (Bld) [#/Vol] 5.4 10 3/uL 1.4-6.5 [facility] Neutrophils/100 WBC Auto (Bl d)on 10-24-2023 Neutrophils/100 WBC (Bld) 57.1 % 43.0-75.0 [facility] No Panel Informationon 10-23 Eosinophils # (Auto) 0.5 10 3/uL 0.0-0.7 [facility] Folate >20.0 ng/mL >3.0 [facility] Comment on above: A serum folate michelle ntration of less than 3.1 ng/mL isconsidered to represent clinical deficiency.Performed at: [facility] [id number] Director: Brandan Macedo PhD, Phone: [phone] Immature Granulocyte # (Auto) 0.03 10 3/uL 0.00-0.03 [facility] Urine Random Creatinine 84.12 mg/dL 20.00-300.00 [facility] Platelet mean volume Auto (B ld) [Entitic vol]on 10-24-2023 Platelet mean volume (Bld) [Entitic vol] 9.6 fL 9.5-13.5 [facility] Platelets Auto (Bld) [#/Vol] on 10-24-2023 Platelets (Bld) [#/Vol] 335 10 3/uL 150-450 [facility] RBC Auto (Bld) [#/Vol]on RBC (Bld) [#/Vol] 4.63 10 6/uL 4.20-5.40 [facility] Serum or plasma albumin/glob ulin mass ratioon 10-24-2023 Albumin/Globulin [Mass ratio] 1.1 {ratio} [facility] Serum or plasma anion gap de terminationon 10-24-2023 Anion gap [Moles/Vol] 11.6 mmol/L [facility] Serum or plasma total choles terol/high density lipoprotein (HDL) cholesterol mass luis miguel 10-24-2023 Cholesterol.total/Cho lesterol in HDL [Mass ratio] 2.7 {ratio} [facility] Comment on above: 3.3 - 4.4 LOW RISK4. 4 - 7.1 AVERAGE RISK7.1 - 11.0 MODERATE RISK>11.0 HIGH RISK Urine microalbumin/creatinin e mass ratioon 10-24-2023 Albumin/Creatinine DL <= 20 mg/L (U) [Mass ratio] 43.9 mg/g High 0.0-29.9 [facility] Comment on above: NO MICROALBUMINURIA 0-29 MG/GCLINICAL MICROALBUMINURIA 30-300 MG/GMACROALBUMINURIA >300 MG/G Office Visit (Cardiology)on 10-29-2022 Follow-up visit Diagnoses/Problems [...] Weight Tips; Status:Complete - Retrospective Authorization; Done: [id number] Some eating tips that can help you lose weight.; Status:Complete - Retrospective Authorization; Done: [id number] SocHx: Never a smoker Tobacco Use Screening; Status:Complete; Done: [id number] Patient Instructions Please bring all medicines, vitamins, and herbal supplements with you when you come to the office. Prescriptions will not be filled unless you are compliant with your follow up appointments or have a follow up appointment scheduled as per instruction of your physician. Refills should be requested at the time of your visit. Follow up in 1 year. Chief Complaint SUZANNA HOWARD is being seen for a 9 month [...] Problems History of Complete colonoscopy Managed By: Jewel Holder MD (Gastroenterology) History of Neck surgery History of [...] Signs Recorded: 29Oct2022 02:29PMRecorded: 29Oct2022 02:25PM Heart [id number] [id number] Height5 ft 3 in5 ft 3 in Btqqin969 lb 12.8 oz160 lb 12.8 oz BMI Pxzfbpvqlj35.48 kg/m228.48 kg/m2 BSA Calculated1.761.76 Tobacco Useb) Nob) No PHQ-2 #1. Over the last 2 weeks have you felt down, depressed or hopeless? (If yes, answer PHQ-9 below)NoNo PHQ-2 #2. Over the last 2 weeks have you felt little interest or pleasure in doing things? (If yes, answer PHQ-9 bel (more content not included)... [facility] AUTO DIFFon 04-18-2022 BASO # 0.1 103/ul Normal 0.0-0.1 [facility] Comment on above: Performed By: #### C BC #### [facility] [address] [place] [address] Dr. Citlalli Schmidt Basophils/100 WBC (Bld) 0.7 % Normal 0.2-2.0 [facility] Comment on above: Performed By: #### C BC #### [facility] [address] [place], [place] [address] Dr. Citlalli Schmidt EO # 0.6 103/ul Normal 0.0-0.7 [facility] Comment on above: Performed By: #### C BC #### [facility] [address] [place] [address] Dr. Citlalli Schmidt Eosinophils/100 WBC (Bld) 6.5 % Normal 0.9-7.0 [facility] [facility] Comment on above: Performed By: #### C BC #### [facility] [address] [place] [address] Dr. Citlalli Schmidt Erythrocyte distribution width (RBC) [Ratio] 13.2 % Normal 11.0-15.0 [facility] Comment on above: Performed By: #### C BC #### [facility] [address] [place] [address] Dr. Citlalli Schmidt Hematocrit (Bld) [Volume fraction] 42.5 % Normal 36.0-48.0 [facility] Comment on above: Performed By: #### C BC #### [facility] [address] [place] [address] Dr. Citlalli Schmidt Hemoglobin (Bld) [Mass/Vol] 13.9 g/dL Normal 12.0-16.0 [facility] Comment on above: Performed By: #### C BC #### [facility] [address] [place] [address] Dr. Citlalli Schmidt IG # 0.02 10e3/ul Normal 0.00-0.03 [facility] Comment on above: Performed By: #### C BC #### [facility] [address] [place] [address] Dr. Citlalli Schmidt IG % 0.2 % Normal 0.0-0.5 [facility] Comment on above: Performed By: #### C BC #### [facility] [address] [place] [address] Dr. Citlalli Schmidt LYMPH # 2.7 103/ul Normal 1.2-3.8 [facility] Comment on above: Performed By: #### C BC #### [facility] [address] [place] [address] Dr. Citlalli Schmidt Lymphocytes/100 WBC (Bld) 31.6 % Normal 20.5-60.0 [facility] Comment on above: Performed By: #### C BC #### [facility] [address] [place] [address] Dr. Citlalli Schmidt MANUAL DIFF REQ NO Normal [facility] Comment on above: Performed By: #### C BC #### [facility] [address] [place] [address] Dr. Citlalli Schmidt MCH (RBC) [Entitic mass] 30.4 pg Normal 26.7-34.0 [facility] Comment on above: Performed By: #### C BC #### [facility] [address] [place] [address] Dr. Citlalli Schmidt MCHC (RBC) [Mass/Vol] 32.7 g/dL Normal 29.9-35.2 [facility] Comment on above: Performed By: #### C BC #### [facility] [address] [place] [address] Dr. Citlalli Schmidt MCV (RBC) [Entitic vol] 93.0 fL Normal 81.0-99.0 [facility] Comment on above: Performed By: #### C BC #### [facility] [address] [place] [address] Dr. Citlalli Schmidt MONO # 0.7 103/ul Normal 0.3-0.8 [facility] Comment on above: Performed By: #### C BC #### [facility] [address] [place] [address] Dr. Citlalli Schmidt Monocytes/100 WBC (Bld) 8.2 % Normal 1.7-12.0 [facility] Comment on above: Performed By: #### C BC #### [facility] [address] [place] [address] Dr. Citlalli Schmidt NEUT # 4.5 103/ul Normal 1.4-6.5 [facility] Comment on above: Performed By: #### C BC #### [facility] [address] [place] [address] Dr. Citlalli Schmidt Neutrophils/100 WBC (Bld) 52.8 % Normal 43.0-75.0 [facility] Comment on above: Performed By: #### C BC #### [facility] [address] [place] [address] [address] Citlalli Schmidt Platelet mean volume (Bld) [Entitic vol] 9.5 fL Normal 9.5-13.5 [facility] Comment on above: Performed By: #### C BC #### [facility] [address] [place] [address] [address] Citlalli Schmidt PLT 321 103/ul Normal 150-450 [facility] Comment on above: Performed By: #### C BC #### [facility] [address] [place] [address] [address] Citlalli Schmidt RBC 4.57 106/ul Normal 4.20-5.40 [facility] Comment on above: Performed By: #### C BC #### [facility] [address] [place] [address] Dr. Citlalli Schmidt WBC 8.4 103/ul Normal 4.0-11.0 [facility] Comment on above: Performed By: #### C BC #### [facility] [address] [place] [address] Dr. Citlalli Schmidt GLYCOHEMOGLOBIN A1Con 2022 ADA RECOMMENDATION SEE BELOW Normal [facility] Comment on above: Result Comment: ADA RECOMMENDED LIMIT 4.0 - 6.0 ADA THERAPEUTIC TARGET < 7.0 ACTION SUGGESTED > 7.0 Performed By: #### A 1C #### [facility] [address] [place] [address] Dr. Citlalli Schmidt Glucose [Mass/Vol] 137 mg/dL Normal [facility] Comment on above: Performed By: #### A 1C #### [facility] [address] [place] [address] Dr. Citlalli Schmidt HbA1c (Bld) [Mass fraction] 6.4 % Critically high 4.5-6.2 [facility] Comment on above: Performed By: #### A 1C #### [facility] [address] [place] [address] Dr. Citlalli Schmidt LIPID PROFILEon 04-18-2022 CHOL-HDL RATIO NORM SEE BELOW Normal [facility] Comment on above: Result Comment: 3.3 - 4.4 LOW RISK 4.4 - 7.1 AVERAGE RISK 7.1 - 11.0 MODERATE RISK >11.0 HIGH RISK Performed By: #### T SH, LIPID, CMP ####[facility] [address] [place] [id number]. Citlalli Schmidt Cholesterol [Mass/Vol] 165 mg/dL Normal <=200 [facility] Comment on above: Performed By: #### T SH, LIPID, CMP ####[facility] [address] [place] [id number]. Rosielan Schmidt Cholesterol in HDL [Mass/Vol] 58 mg/dL Normal 40-60 [facility] Comment on above: Performed By: #### T IVETH, LIPID, CMP ####[facility] [address] [place] [address]Dr. Rosielan Schmidt Cholesterol in LDL [Mass/Vol] 78.8 mg/dL Normal [facility] Comment on above: Performed By: #### T SH, LIPID, CMP ####[facility] [address] [place] [id number]. Citlalli Schmidt Cholesterol.total/Cho lesterol in HDL [Mass ratio] 2.8 {ratio} Normal [facility] Comment on above: Performed By: #### T SH, LIPID, CMP ####[facility] [address] [place] [id number]. oRsielan Schmidt HDL NORMAL > or = 60 mg/dl - LO W CARDIOVASCULAR RISK <40 mg/dl - HIGH CARDIOVASCULAR RISK Normal [facility] Comment on above: Performed By: #### T SH, LIPID, CMP ####[facility] [address] [place] [address]Dr. Rosielan Schmidt LDL CALC NORMAL SEE BELOW Normal [facility] Comment on above: Result Comment: <100 mg/dl OPTIMAL 100 - 129 mg/dl NEAR OR ABOVE OPTIMAL 130 - 159 mg/dl BORDERLINE HIGH 160 - 189 mg/dl HIGH >190 mg/dl VERY HIGH Performed By: #### T SH, LIPID, CMP ####[facility] [address] [place] [address]Dr. Citlalli Schmidt Triglyceride [Mass/Vol] 141 mg/dL Normal <=150 [facility] Comment on above: Performed By: #### T IVETH, LIPID, CMP ####[facility] [address] [place] [address]Dr. Citlalli Schmidt VLDL CALC 28.2 mg/dL Normal [facility] Comment on above: Performed By: #### T IVETH, LIPID, CMP ####[facility] [address] [place] [address]Dr. Citlalli Schmidt PROF 14(COMP METB)on 023 Albumin [Mass/Vol] 3.7 g/dL Normal 3.4-5.0 [facility] Comment on above: Performed By: #### T IVETH, LIPID, CMP ####[facility] [address] [place] [address]Dr. Citlalli Schmidt Albumin/Globulin [Mass ratio] 1.1 {ratio} Normal [facility] Comment on above: Performed By: #### T IVETH, LIPID, CMP ####[facility] [address] [place] [address]Dr. Citlalli Schmidt ALP [Catalytic activity/Vol] 82 U/L Normal 46-116 [facility] Comment on above: Performed By: #### T IVETH, LIPID, CMP ####[facility] [address] [place] [address]Dr. Citlalli Schmidt ALT [Catalytic activity/Vol] 18 U/L Normal 14-59 [facility] Comment on above: Performed By: #### T IVETH, LIPID, CMP ####[facility] [address] [place] [address]Dr. Citlalli Schmidt Anion gap [Moles/Vol] 12.4 mmol/L Normal [facility] Comment on above: Performed By: #### T IVETH, LIPID, CMP ####[facility] [address] [place] [address]Dr. Citlalli Schmidt AST [Catalytic activity/Vol] 14 U/L Critically low 15-37 [facility] Comment on above: Performed By: #### T IVETH, LIPID, CMP ####[facility] [address] [place] [id number]. Citlalli Schmidt Bilirubin [Mass/Vol] 1.0 mg/dL Normal 0.2-1.0 [facility] Comment on above: Performed By: #### T SH, LIPID, CMP ####[facility] [address] [place] [id number]. Citlalli Schmidt Calcium [Mass/Vol] 9.4 mg/dL Normal 8.5-10.[address] [facility] Comment on above: Performed By: #### T SH, LIPID, CMP ####[facility] [address] [place] [address]Dr. Citlalli Schmidt Chloride [Moles/Vol] 104 mmol/L Normal 98-107 [facility] Comment on above: Performed By: #### T SH, LIPID, CMP ####[facility] [address] [place], [place] [address]Dr. Citlalli Schmidt CO2 [Moles/Vol] 29.8 mmol/L Normal 21.0-32.0 [facility] Comment on above: Performed By: #### T SH, LIPID, CMP ####[facility] [address] [place], [place] [address]Dr. Citlalli Schmidt Creatinine [Mass/Vol] 0.69 mg/dL Normal 0.55-1.02 [facility] Comment on above: Performed By: #### T SH, LIPID, CMP ####[facility] [address] [place] [address]Dr. Citlalli Schmidt EGFR-AF GRENADIAN >60 Normal >=60 [facility] Comment on above: Performed By: #### T SH, LIPID, CMP ####[facility] [address] [place] [id number]. Citlalli Schmidt EGFR-NON AF GRENADIAN >60 Normal >=60 [facility] Comment on above: Performed By: #### T SH, LIPID, CMP ####[facility] [address] [place], [place] [address]Dr. Citlalli Schmidt Globulin (S) [Mass/Vol] 3.4 g/dL Normal [facility] Comment on above: Performed By: #### T SH, LIPID, CMP ####[facility] [address] [place] [address]Dr. Citlalli Schmidt Glucose [Mass/Vol] 116 mg/dL Critically high 74-106 [facility] Comment on above: Performed By: #### T SH, LIPID, CMP ####[facility] [address] [place] [address]Dr. Citlalli Schmidt Potassium [Moles/Vol] 4.2 mmol/L Normal 3.5-5.1 [facility] Comment on above: Performed By: #### T SH, LIPID, CMP ####[facility] [address] [place] [address]Dr. Citlalli Schmidt Protein [Mass/Vol] 7.1 g/dL Normal 6.4-8.2 [facility] Comment on above: Performed By: #### T IVETH, LIPID, CMP ####[facility] [address] [place], [place] [address]Dr. Citlalli Schmidt Sodium [Moles/Vol] 142 mmol/L Normal 136-[address] [facility] Comment on above: Performed By: #### T IVETH, LIPID, CMP ####[facility] [address] [place] [address]Dr. Citlalli Schmidt Urea nitrogen [Mass/Vol] 12.0 mg/dL Normal 7.0-18.0 [facility] Comment on above: Performed By: #### T IVETH, LIPID, CMP ####[facility] [address] [place] [address]Dr. Citlalli Schmidt Urea nitrogen/Creatinine [Mass ratio] 17.4 mg/mg Normal [facility] Comment on above: Performed By: #### T SH, LIPID, CMP ####[facility] [address] [place] [address]Dr. Citlalli Schmidt TSHon 04-18-2022 TSH 1.444 uIU/mL Normal 0.358-3.[address] [facility] Comment on above: Performed By: #### T SH, LIPID, CMP ####[facility] [address] [place], [place] [address]Dr. Citlalli Schmidt VIT B12 AND FOLATEon 023 Cobalamin (Vitamin B12) [Mass/Vol] 419.0 pg/mL Normal 193.0-986.0 [facility] Comment on above: Performed By: #### B 12FOL #### [facility] [address] [place], [place] [address] Dr. Citlalli Schmidt FOLATE 24.40 ng/mL Normal 8.60-58.90 [facility] Comment on above: Performed By: #### B 12FOL #### [facility] [address] [place], [place] [address] Dr. Citlalli Schmidt Office Visit (Cardiology)on 01-28-2022 [...] Recorded: 28Jan2022 02:28PM Heart Rate68, L Radial Uhpqitpg144, LUE, Sitting Arkiyxxlu23, LUE, Sitting Height5 ft 3 in Ivbbzq604 lb BMI Xhwiyropcg22.82 kg/m2 BSA Calculated1.82 Tobacco Useb) No PHQ-2 [...] carotid puls (more content not included)... Normal [employer] Tobacco Screening.on 022 Adult depression screening assessment No [facility] [employer] 250 DO Work Phone: Fall risk assessment a) No falls within the last year [facility] [employer] 250 DO Work Phone: Tobacco use status [facility] b) No [facility] [employer] 250 DO Work Phone: CT CHEST WO [...] by: ARABELLA REEVES Date: 2022-01-12 17:18 Normal [facility] Echocardiogramon 12-17-[address], [address] [address] TRANSTHORACIC ECHOCARDIOGRAM REPORT Patient Name: SUZANNA Hook Reading Physician: [id number] Maria De Jesus Green MD Study Date: 12/17/2021 Referring Physician: MARIA DE JESUS GREEN MRN/PID: [id number] PCP: Arabella Marquez Accession/Order#: [id number] Department Location: [facility] Date of : 1950 Fellow: Gender: F Nurse: Admit Date: Crane Engineer: Mamta Palacio RDCS, T Height: 160.02 cm CC Report to: Weight: 75.30 kg Study Type: Echocardiogram BSA: 1.79 m2 Diagnosis/ICD: I42.9-Cardiomyopathy, unspecified Indication: Abnormal EKG, Diabetes, HTN, Hyperlipidemia, CVA, Overweight Procedure/CPT: Echo Complete w Full Doppler-[id number] Study Detail: The following Echo studies were [...] 0.7 m/s (0.6-0.9m/s) PV Max P.8 mmHg [id number] Maria De Jesus Green MD Electronically signed on 12/17/2021 at 12:50:22 PM Final Normal [facility] Falls Screening (Age 18+)on 12-17-2021 Fall risk assessment a) No falls within the last year [facility] [id number] [place] Work Phone: CBC AUTO DIFFon 10-12-2021 BASO # 0.1 103/ul Normal 0.0-0.1 [facility] Comment on above: Performed By: #### C BC #### [facility] [address] [place] [address] Dr. Citlalli Schmidt Basophils/100 WBC (Bld) 0.9 % Normal 0.2-2.0 [facility] Comment on above: Performed By: #### C BC #### [facility] [address] [place] [address] Dr. Citlalli Schmidt EO # 0.7 103/ul Normal 0.0-0.7 [facility] Comment on above: Performed By: #### C BC #### [facility] [address] [place] [address] Dr. Citlalli Schmidt Eosinophils/100 WBC (Bld) 7.0 % Normal 0.9-7.0 [facility] Comment on above: Performed By: #### C BC #### [facility] [address] [place] [address] Dr. Citlalli Schmidt Erythrocyte distribution width (RBC) [Ratio] 12.7 % Normal 11.0-15.0 [facility] Comment on above: Performed By: #### C BC #### [facility] [address] [place] [address] Dr. Citlalli Schmidt Hematocrit (Bld) [Volume fraction] 41.1 % Normal 36.0-48.0 [facility] Comment on above: Performed By: #### C BC #### [facility] [address] [place] [address] Dr. Citlalli Schmidt Hemoglobin (Bld) [Mass/Vol] 13.0 g/dL Normal 12.0-16.0 [facility] Comment on above: Performed By: #### C BC #### [facility] [address] [place] [address] Dr. Citlalli Schmidt IG # 0.02 10e3/ul Normal 0.00-0.03 [facility] Comment on above: Performed By: #### C BC #### [facility] [address] [place] [address] Dr. Citlalli Schmidt IG % 0.2 % Normal 0.0-0.5 [facility] Comment on above: Performed By: #### C BC #### [facility] [address] [place] [address] Dr. Citlalli Schmidt LYMPH # 3.2 103/ul Normal 1.2-3.8 [facility] Comment on above: Performed By: #### C BC #### [facility] [address] [place] [address] Dr. Citlalli Schmidt Lymphocytes/100 WBC (Bld) 34.8 % Normal 20.5-60.0 [facility] Comment on above: Performed By: #### C BC #### [facility] [address] [place] [address] Dr. Citlalli Schmidt MANUAL DIFF REQ NO Normal [facility] Comment on above: Performed By: #### C BC #### [facility] [address] [place] [address] Dr. Citlalli Schmidt MCH (RBC) [Entitic mass] 30.6 pg Normal 26.7-34.0 [facility] Comment on above: Performed By: #### C BC #### [facility] [address] [place] [address] Dr. Citlalli Schmidt MCHC (RBC) [Mass/Vol] 31.6 g/dL Normal 29.9-35.2 [facility] Comment on above: Performed By: #### C BC #### [facility] [address] [place] [address] Dr. Citlalli Schmidt MCV (RBC) [Entitic vol] 96.7 fL Normal 81.0-99.0 [facility] Comment on above: Performed By: #### C BC #### [facility] [address] [place] [address] Dr. Citlalli Schmidt MONO # 0.8 103/ul Normal 0.3-0.8 [facility] Comment on above: Performed By: #### C BC #### [facility] [address] [place] [address] [address] Citlalli Schmidt Monocytes/100 WBC (Bld) 8.5 % Normal 1.7-12.0 [facility] Comment on above: Performed By: #### C BC #### [facility] [address] [place] [address] [address] Citlalli Schmidt NEUT # 4.5 103/ul Normal 1.4-6.5 [facility] Comment on above: Performed By: #### C BC #### [facility] [address] [place] [address] [address] Citlalli Schmidt Neutrophils/100 WBC (Bld) 48.6 % Normal 43.0-75.0 [facility] Comment on above: Performed By: #### C BC #### [facility] [address] [place] [address] Dr. Citlalli Schmidt Platelet mean volume (Bld) [Entitic vol] 9.3 fL Critically low 9.5-13.5 [facility] Comment on above: Performed By: #### C BC #### [facility] [address] [place] [address] Dr. Citlalli Schmidt PLT 316 103/ul Normal 150-450 [facility] Comment on above: Performed By: #### C BC #### [facility] [address] [place] [address] Dr. Citlalli Schmidt RBC 4.25 106/ul Normal 4.20-5.40 [facility] Comment on above: Performed By: #### C BC #### [facility] [address] [place] [address] Dr. Citlalli Schmidt WBC 9.2 103/ul Normal 4.0-11.0 [facility] Comment on above: Performed By: #### C BC #### [facility] [address] [place] [address] Dr. Citlalli Schmidt GLYCOHEMOGLOBIN A1Con 2021 ADA RECOMMENDATION SEE BELOW Normal [facility] Comment on above: Result Comment: ADA RECOMMENDED LIMIT 4.0 - 6.0 ADA THERAPEUTIC TARGET < 7.0 ACTION SUGGESTED > 7.0 Performed By: #### A 1C #### [facility] [address] [place] [address] [address] Citlalli Schmidt Glucose [Mass/Vol] 137 mg/dL Normal [facility] Comment on above: Performed By: #### A 1C #### [facility] [address] [place] [address] [address] Citlalli Schmidt HbA1c (Bld) [Mass fraction] 6.4 % Critically high 4.5-6.2 [facility] Comment on above: Performed By: #### A 1C #### [facility] [address] [place] [address] [address] Citlalli Schmidt LIPID PROFILEon 10-12-2021 CHOL-HDL RATIO NORM SEE BELOW Normal [facility] Comment on above: Result Comment: 3.3 - 4.4 LOW RISK 4.4 - 7.1 AVERAGE RISK 7.1 - 11.0 MODERATE RISK >11.0 HIGH RISK Performed By: #### L IPID, CMP #### [facility] [address] [place] [address] Dr. Citlalli Schmidt Cholesterol [Mass/Vol] 175 mg/dL Normal <=200 [facility] Comment on above: Performed By: #### L IPID, CMP #### [facility] [address] [place] [address] Dr. Citlalli Schmidt Cholesterol in HDL [Mass/Vol] 53 mg/dL Normal 40-60 [facility] Comment on above: Performed By: #### L IPID, CMP #### [facility] [address] [place] [address] [address] Citlalli Schmidt Cholesterol in LDL [Mass/Vol] 94.6 mg/dL Normal [facility] Comment on above: Performed By: #### L IPID, CMP #### [facility] [address] [place] [address] [address] Citlalli Schmidt Cholesterol.total/Cho lesterol in HDL [Mass ratio] 3.3 {ratio} Normal [facility] Comment on above: Performed By: #### L IPID, CMP #### [facility] [address] [place] [address] [address] Citlalli Schmidt HDL NORMAL > or = 60 mg/dl - LO W CARDIOVASCULAR RISK <40 mg/dl - HIGH CARDIOVASCULAR RISK Normal [facility] Comment on above: Performed By: #### L IPID, CMP #### [facility] [address] [place] [address] Dr. Citlalli Schmidt LDL CALC NORMAL SEE BELOW Normal [facility] Comment on above: Result Comment: <100 mg/dl OPTIMAL 100 - 129 mg/dl NEAR OR ABOVE OPTIMAL 130 - 159 mg/dl BORDERLINE HIGH 160 - 189 mg/dl HIGH >190 mg/dl VERY HIGH Performed By: #### L IPID, CMP #### [facility] [address] [place] [address] Dr. Citlalli Schmidt Triglyceride [Mass/Vol] 137 mg/dL Normal <=150 [facility] Comment on above: Performed By: #### L IPID, CMP #### [facility] [address] [place] [address] Dr. Citlalli Schmidt VLDL CALC 27.4 mg/dL Normal [facility] Comment on above: Performed By: #### L IPID, CMP #### [facility] [address] [place] [address] Dr. Citlalli Schmidt MICROALBUMIN, RAND URon 07 mALB 1.8 mg/L Normal <=30.0 [facility] Comment on above: Performed By: #### M ALBR #### [facility] [address] [place] [address] Dr. Citlalli Schmidt PROF 14(COMP METB)on 022 Albumin [Mass/Vol] 3.6 g/dL Normal 3.4-5.0 [facility] Comment on above: Performed By: #### L IPID, CMP #### [facility] [address] [place] [address] Dr. Citlalli Schmidt Albumin/Globulin [Mass ratio] 1.0 {ratio} Normal [facility] Comment on above: Performed By: #### L IPID, CMP #### [facility] [address] [place] [address] Dr. Citlalli Schmidt ALP [Catalytic activity/Vol] 78 U/L Normal 46-116 [facility] Comment on above: Performed By: #### L IPID, CMP #### [facility] [address] [place] [address] [address] Citlalli Schmidt ALT [Catalytic activity/Vol] 21 U/L Normal 14-59 [facility] Comment on above: Performed By: #### L IPID, CMP #### [facility] [address] [place] [address] [address] Citlalli Schmidt Anion gap [Moles/Vol] 11.2 mmol/L Normal [facility] Comment on above: Performed By: #### L IPID, CMP #### [facility] [address] [place] [address] Dr. Citlalli Schmidt AST [Catalytic activity/Vol] 16 U/L Normal 15-37 [facility] Comment on above: Performed By: #### L IPID, CMP #### [facility] [address] [place] [address] [address] Citlalli Schmidt Bilirubin [Mass/Vol] 1.3 mg/dL Critically high 0.2-1.0 [facility] Comment on above: Performed By: #### L IPID, CMP #### [facility] [address] [place] [address] Dr. Citlalli Schmidt Calcium [Mass/Vol] 9.4 mg/dL Normal 8.5-10.1 [facility] Comment on above: Performed By: #### L IPID, CMP #### [facility] [address] [place] [address] Dr. Citlalli Schmidt Chloride [Moles/Vol] 104 mmol/L Normal 98-107 [facility] Comment on above: Performed By: #### L IPID, CMP #### [facility] [address] [address] [address] Citlalli Schmidt CO2 [Moles/Vol] 29.2 mmol/L Normal 21.0-32.0 [facility] Comment on above: Performed By: #### L IPID, CMP #### [facility] [address] [address] [address] Citlalli Schmidt Creatinine [Mass/Vol] 0.82 mg/dL Normal 0.55-1.02 [facility] Comment on above: Performed By: #### L IPID, CMP #### [facility] [address] [place] [address] Dr. Citlalli Schmidt EGFR-AF GRENADIAN >60 Normal >=60 [facility] Comment on above: Performed By: #### L IPID, CMP #### [facility] [address] [address] [address] Citlalli Schmidt EGFR-NON AF GRENADIAN >60 Normal >=60 [facility] Comment on above: Performed By: #### L IPID, CMP #### [facility] [address] [address] [address] Citlalli Schmidt Globulin (S) [Mass/Vol] 3.5 g/dL Normal [facility] Comment on above: Performed By: #### L IPID, CMP #### [facility] [address] [address] [address] Citlalli Schmidt Glucose [Mass/Vol] 122 mg/dL Critically high 74-106 [facility] Comment on above: Performed By: #### L IPID, CMP #### [facility] [address] [place] [address] Dr. Citlalli Schmidt Potassium [Moles/Vol] 4.4 mmol/L Normal 3.5-5.1 [facility] Comment on above: Performed By: #### L IPID, CMP #### [facility] [address] [place] [address] Dr. Citlalli Schmidt Protein [Mass/Vol] 7.1 g/dL Normal 6.4-8.[address] [facility] Comment on above: Performed By: #### L IPID, CMP #### [facility] [address] [address] [address] Citlalli Schmidt Sodium [Moles/Vol] 140 mmol/L Normal 136-145 [facility] Comment on above: Performed By: #### L IPID, CMP #### [facility] [address] [place], [place] [id number] Dr. Citlalli Schmidt Urea nitrogen [Mass/Vol] 17.0 mg/dL Normal 7.0-18.0 [facility] Comment on above: Performed By: #### L IPID, CMP #### [facility] [address] [address] [address] Citlalli Schmidt Urea nitrogen/Creatinine [Mass ratio] 20.7 mg/mg Normal [facility] Comment on above: Performed By: #### L IPID, CMP #### [facility] [address] [address] [address] Citlalli Schmidt SCREENING MAMMOGRAM W/BASIM, BILATERAL*on [...] VERY IMPORTANT TO YOUR HEALTH. THE CURRENT [place] [employer] AND [employer]WORK GUIDELINES RECOMMENDS ANNUAL MAMMOGRAPHY BEGINNING AT AGE 40 THIS FACILITY USES A REMINDER SYSTEM TO ENSURE ALL PATIENTS RECEIVE REMINDER NOTIFICATIONS AT THE APPROPRIATE TIME BASED ON THE RECOMMENDATIONS OF THIS EXAM. Board Certified Radiologist. Accredited by the ACR and FDA. Report reported and signed by Tony Garcia on 07/23/2021 1102 Normal [facility] Specialist CT CHEST WO CONon 07-17-2021 CT CHEST WO CON EXAMINATION: CT CHES T WO CON HISTORY: Solitary nodule of lung [...] DARIEL VARGHESE Date: 2021-07-17 09:50 Normal [facility] Tobacco Screening.on 022 Fall risk assessment a) No falls within the last year [facility] 250 DO Work Phone: Tobacco use status CPHS b) No [facility] 250 DO Work Phone: Vital Signs Date Time Vital Sign Value Performing Clinician Facility 01-20-2024 13:12-0400 Body height 160 cm Sunday Yoder MD Work Phone: [facility] 01-20-2024 13:12-0400 Body mass index (BMI) [Ratio] 26.75 kg/m2 Sunday Yoder MD Work Phone: [facility] 01-20-2024 13:12-0400 Body weight 68.49 kg Sunday Yoder MD Work Phone: [facility] 01-20-2024 13:12-0400 Diastolic blood pressure 76 mm[Hg] Sunday Yoder MD Work Phone: [facility] 01-20-2024 13:12-0400 Heart rate 65 /min Sunday Yoder MD Work Phone: [facility] 01-20-2024 13:12-0400 Systolic blood pressure 127 mm[Hg] Sunday Yoder MD Work Phone: [facility] 01-07-2024 12:13-0400 Body mass index (BMI) [Ratio] 26.55 kg/m2 Nakul Visci DO Work Phone: [facility] 01-07-2024 12:13-0400 Body weight 68.54 kg Nakul Visci DO Work Phone: [facility] 01-07-2024 12:13-0400 Diastolic blood pressure 72 mm[Hg] Nakul Visci DO Work Phone: [facility] 01-07-2024 12:13-0400 Systolic blood pressure 124 mm[Hg] Nakul Visci DO Work Phone: [facility] 10-30-2023 09:26-0400 Body height 160.02 cm [facility] 10-30-2023 09:26-0400 Body mass index (BMI) [Ratio] 26.4 kg/m2 [facility] 10-30-2023 09:26-0400 Body temperature 97.6 [degF] [facility] 10-30-2023 09:26-0400 Body weight 67.58 kg [facility] 10-30-2023 09:26-0400 Diastolic blood pressure 78 mm[Hg] [facility] 10-30-2023 09:26-0400 Heart rate 73 /min [facility] 10-30-2023 09:26-0400 SaO2% (BldA) [Mass fraction] 96 % [facility] 10-30-2023 09:26-0400 Systolic blood pressure 126 mm[Hg] [facility] 04-30-2023 09:10-0500 Body height 160.02 cm Arabella Marquez Other [employer] Other 04-30-2023 09:10-0500 Body mass index (BMI) [Ratio] 27.28 kg/m2 Arabella Marquez Other [employer] Other 01-31-2024 09:10-0500 Body temperature 97.8 [degF] Arabella Marquez Other [employer] Other 04-30-2023 09:10-0500 Body weight 69.85 kg Arabella Marquez Other [employer] Other 04-30-2023 09:10-0500 Diastolic blood pressure 76 mm[Hg] Arabella Marquez Other [employer] Other 04-30-2023 09:10-0500 Respiratory rate 18 /min Arabella Marquez Other [employer] Other 04-30-2023 09:10-0500 SaO2% (BldA) [Mass fraction] 98 % Arabella Marquez Other [employer] Other 04-30-2023 09:10-0500 Systolic blood pressure 136 mm[Hg] Arabella Marquez Other [employer] Other 10-24-2022 08:30-0400 Body height 160.02 cm Arabella Marquez Other [employer] Other 10-24-2022 08:30-0400 Body mass index (BMI) [Ratio] 28.34 kg/m2 Arabella Marquez Other [employer] Other 10-24-2022 08:30-0400 Body temperature 97.1 [degF] Arabella Marquez Other [employer] Other 10-24-2022 08:30-0400 Body weight 72.58 kg Arabella Marquez Other [employer] Other 10-24-2022 08:30-0400 Diastolic blood pressure 80 mm[Hg] Arabella Marquez Other [employer] Other 10-24-2022 08:30-0400 Respiratory rate 16 /min Arabella Marquez Other [employer] Other 10-24-2022 08:30-0400 SaO2% (BldA) [Mass fraction] 97 % Arabella Marquez Other [employer] Other 10-24-2022 08:30-0400 Systolic blood pressure 126 mm[Hg] Arabella Marquez Other [employer] Other 04-23-2022 09:10-0500 Body height 160.02 cm Arabella Marquez Other [employer] Other 04-23-2022 09:10-0500 Body mass index (BMI) [Ratio] 29.93 kg/m2 Arabella Marquez Other [employer] Other 04-23-2022 09:10-0500 Body temperature 97.3 [degF] Arabella Marquez Other [employer] Other 04-23-2022 09:10-0500 Body weight 76.66 kg Arabella Marquez Other [employer] Other 04-23-2022 09:10-0500 Diastolic blood pressure 88 mm[Hg] Arabella Marquez Other [employer] Other 04-23-2022 09:10-0500 Respiratory rate 18 /min Arabella Marquez Other [employer] Other 04-23-2022 09:10-0500 SaO2% (BldA) [Mass fraction] 98 % Arabella Marquez Other [employer] Other 01-24-2023 09:10-0500 Systolic blood pressure 138 mm[Hg] Arabella Marquez Other [facility] Other 01-28-2022 14:28-0400 Body height 160.02 cm Arabella Marquez Work Phone: [facility] 250 DO Work Phone: 01-28-2022 14:28-0400 Body mass index (BMI) [Ratio] 30.82 kg/m2 Arabella Marquez Work Phone: [facility] 250 DO Work Phone: 01-28-2022 14:28-0400 Body surface area Derived from formula 1.82 m2 Arabella Marquez Work Phone: [facility] 250 DO Work Phone: 01-28-2022 14:28-0400 Body weight 78.93 kg Arabella Marquez Work Phone: [facility] 250 DO Work Phone: 01-28-2022 14:28-0400 Diastolic blood pressure 70 mm[Hg] Arabella Marquez Work Phone: [facility] 250 DO Work Phone: 01-28-2022 14:28-0400 Heart rate 68 /min Arabella Marquez Work Phone: [facility] 250 DO Work Phone: 01-28-2022 14:28-0400 Systolic blood pressure 124 mm[Hg] Arabella Marquez Work Phone: [facility] 250 DO Work Phone: 12-17-2021 09:45-0400 65 1 Arabella Marquez Work Phone: [facility] [address] [place] Work Phone: Comment on above: [id number] 10-16-2021 09:10-0400 Body height 160.02 cm Arabella Marquez Other [employer] Other 10-16-2021 09:10-0400 Body mass index (BMI) [Ratio] 29.76 kg/m2 Arabella Marquez Other [employer] Other 10-16-2021 09:10-0400 Body temperature 97.4 [degF] Arabella Marquez Other [employer] Other 10-16-2021 09:10-0400 Body weight 76.2 kg Arabella Marquez Other [employer] Other 10-16-2021 09:10-0400 Diastolic blood pressure 74 mm[Hg] Arabella Marquez Other [employer] Other 10-16-2021 09:10-0400 Respiratory rate 16 /min Arabella Marquez Other [employer] Other 10-16-2021 09:10-0400 SaO2% (BldA) [Mass fraction] 98 % Arabella Marquez Other [employer] Other 10-16-2021 09:10-0400 Systolic blood pressure 132 mm[Hg] Arabella Marquez Other [employer] Other 04-18-2021 09:10-0500 Body height 160.02 cm Arabella Marquez Other [employer] Other 04-18-2021 09:10-0500 Body mass index (BMI) [Ratio] 29.05 kg/m2 Arabelal Marquez Other [employer] Other 04-18-2021 09:10-0500 Body temperature 97 [degF] Arabella Marquez Other [employer] Other 04-18-2021 09:10-0500 Body weight 74.39 kg Arabella Marquez Other [employer] Other 04-18-2021 09:10-0500 Diastolic blood pressure 82 mm[Hg] Arabella Marquez Other [employer] Other 04-18-2021 09:10-0500 Respiratory rate 16 /min Arabella Marquez Other [employer] Other 04-18-2021 09:10-0500 SaO2% (BldA) [Mass fraction] 96 % Arabella Marquez Other [employer] Other 04-18-2021 09:10-0500 Systolic blood pressure 134 mm[Hg] Arabella Marquez Other [employer] Other 04-17-2021 13:30-0500 Body height 160.02 cm Arabella Marquez [facility] 250 DO Work Phone: 04-17-2021 13:30-0500 Body mass index (BMI) [Ratio] 29.41 kg/m2 Arabella Marquez [facility] 250 DO Work Phone: 04-17-2021 13:30-0500 Body surface area Derived from formula 1.79 m2 [facility] [facility] DO Work Phone: 04-17-2021 13:30-0500 Body weight 75.3 kg Arabella Marquez -[facility] 250 DO Work Phone: 04-17-2021 13:30-0500 Diastolic blood pressure 76 mm[Hg] Arabella Marquez [facility] 250 DO Work Phone: 04-17-2021 13:30-0500 Heart rate 72 /min Arabella Moise Kryseda -[facility] 250 DO Work Phone: 04-17-2021 13:30-0500 Systolic blood pressure 118 mm[Hg] Arabella Moise Kryseda [facility] 250 DO Work Phone: 04-13-2021 09:41-0500 6.6 1 Arabella Moise [facility] Work Phone: Comment on above: [id number] 04-13-2021 09:41-0500 89 1 Arabella Moise [facility] Work Phone: Comment on above: FSLDL Encounters Encounter Date Encounter Type Care Provider Facility Start: 01-20-2024 End: 01-20-2024 Office outpatient visit 15 minutes Sunday Yoder MD Work Phone: [facility] Comment on above: Kidney stones (Prima ry Dx) Start: 01-20-2024 End: 01-20-2024 ambulatory SUNDAY YODER [facility] Start: 01-16-2024 End: 01-16-2024 Telephone encounter Ally Carpenter LPN [facility] Start: 01-07-2024 End: 01-07-2024 Office outpatient visit 15 minutes Nakul A Visci DO Work Phone: [facility] Comment on above: Encounter for gyneco logical examination with abnormal finding (Primary Dx); Encounter for screening mammogram for malignant neoplasm of breast; Osteopenia of both hips; Vaginal atrophy; Cystocele with rectocele; Osteoporosis screening; Asymptomatic menopause Start: 01-07-2024 End: 01-07-2024 Patient encounter status Nakul A Visci DO Work Phone: [facility] Start: 01-07-2024 End: 01-07-2024 ambulatory NAKUL A VISCI Not Available Start: 12-08-2023 End: 12-08-2023 [facility] Start: 10-31-2023 End: 10-31-[address] [facility] Amb[facility] Start: 10-30-2023 End: 10-30-2023 ambulatory [facility] Work Phone: Start: 10-30-2023 End: 10-30-2023 Patient encounter procedure [facility] [place] Work Phone: Start: 10-24-2023 Non-patient / Non-visit [facility] [employer] Work Phone: Start: 10-21-2023 Non-patient / Non-visit [facility] [place] Work Phone: Start: 04-30-2023 End: 04-30-2023 ambulatory Arabella Marquez Other [employer] Other Start: 04-30-2023 Office outpatient vi sit 25 minutes Arabella Marquez [facility] Start: 01-06-2023 End: 01-06-2023 ambulatory Arabella Marquze Other [employer] Other Start: 01-06-2023 Telephone encounter Arabella Marquez [facility] [place] Start: 01-03-2023 End: 01-03-2023 ambulatory Arabella Marquez Other [employer] Other Start: 01-03-2023 Telephone encounter Arabella Marquez [facility] Start: 10-29-[address] Arabella Marquez Facility: Start: 10-28-2022 End: 10-28-2022 ambulatory Arabella Marquez Other [employer] Other Start: 10-28-2022 Telephone encounter Arabella Marquez [facility] [employer] Start: 10-24-2022 End: 10-24-2022 ambulatory Arabella Marquez Other [employer] Other Start: 10-24-2022 Office outpatient vi sit 25 minutes Arabella Marquez [facility] [place] Start: 07-10-2022 End: 07-10-2022 ambulatory Arabella Marquez Other [employer] Other Start: 07-10-2022 Telephone encounter Arabella Marquez [facility] Start: 05-14-2022 End: 05-14-2022 ambulatory Arabella Marquez Other [employer] Other Start: 05-14-2022 Telephone encounter Arabella Marquez [facility] [place] Start: 04-23-2022 End: 04-23-2022 ambulatory Arabella Marquez Other [employer] Other Start: 04-23-2022 Office outpatient vi sit 25 minutes Arabella Marquez [facility] [place] Start: 04-23-2022 Telephone encounter Arabella Marquez [facility] Start: 04-18-2022 End: 04-19-[address] ARABELLA MARQUEZ Facility:H1 Start: 02-04-2022 End: 02-04-2022 ambulatory Arabella Marquez Other [employer] Other Start: 02-04-2022 Telephone encounter Arabella Marquez [facility] [place] Start: 01-28-2022 Office outpatient vi sit 25 minutes Arabella Marquez Work Phone: [facility] 250 DO Work Phone: Start: 01-28-[address] Maria De Jesus Green Facility:[id number] Start: 01-11-2022 End: 01-12-2022 ambulatory MARY ANNE STARKEY Facility:[facility]1 Start: 12-17-2021 Patient encounter procedure Arabella Marquez Work Phone: [facility] [address] [place] Work Phone: Start: 12-17-[address] Lynn Green Facility:[id number] Start: 10-16-2021 End: 10-16-2021 ambulatory Arabella Marquez Other [employer] Other Start: 10-16-2021 Office outpatient vi sit 25 minutes Arabella Marquez [facility] Family [facility] [place] Start: 10-12-2021 End: 10-13-[address] ARABELLA MARQUEZ Facility:[facility]1 Start: 07-17-2021 Telephone encounter Arabella Marquez [facility] [place] Start: 07-17-2021 End: 07-18-[address] ARABELLA MARQUEZ [facility] Other Start: 06-29-2021 End: 06-29-2021 ambulatory Arabella Marquez Other [employer] Other Start: 06-29-2021 Telephone encounter Arabella Marquez [facility] Start: 06-27-2021 End: 06-27-2021 ambulatory Arabella Marquez Other [employer] Other Start: 06-27-2021 Telephone encounter Arabella Marquez [facility] Vik Start: 04-18-2021 End: 04-18-2021 ambulatory Arabella Marquez Other [employer] Other Start: 04-18-2021 Office outpatient vi sit 25 minutes Arabella Marquez [facility] [place] Start: 04-17-2021 Office outpatient vi sit [address] 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 Start: 12-17-2021 Echocardiography Arabella Marquez Work Phone: Start: 01-30-2016 Total colonoscopy Arabella Marquez Ligation of fallopian tube Edson Marquez Procedure on neck Arabella Moise Gi rvin Renal lithotripsy Arabella Moise Gi rvin Plan of Treatment Date Care Activity Detail Author Start: 02-13-2028 Screening for malign ant neoplasm of colon Colonoscopy [facility] Start: 01-26-2025 End: 01-26-2025 Professional / ancillary services management 01/26/2025 12:30 PM EDT Ancillary Procedure [facility] [place] [address] [place] [phone] [facility] [place] Start: 01-26-2025 End: 01-26-2025 Patient encounter procedure 01/26/2025 11:15 AM EDT Office Visit [facility] [address] [place] [phone] Nakul Lucia, DO [address] [place] [address] [facility] Start: 01-25-2025 End: 01-25-2025 Patient encounter procedure 01/25/2025 1:00 PM EDT Office Visit [facility] [address] [place] [address] [place] [address] [address] Sunday Yoder MD [address] [place] [id number] [facility] Start: 01-19-2025 End: 01-19-2026 XR Abdomen AP X-ray abdomen ap 1 view Imaging Routine Kidney stones Expected: 01/19/2025, Expires: 01/19/2026 [facility] Work Phone: Comment on above: Expected: 01/19/2025 , Expires: 01/19/2026 Start: 01-06-2025 End: 03-08-2025 DBT Breast - bilateral screening Bilateral screening mammogram with tomosynthesis Imaging Routine Encounter for screening mammogram for malignant neoplasm of breast Expected: 01/06/2025, Expires: 03/08/2025 [facility] Work Phone: Comment on above: Expected: 01/06/2025 , Expires: 03/08/2025 Start: 01-06-2025 End: 01-06-2025 DXA Skeletal system Views for bone density DEXA bone density Imaging Routine Osteopenia of both hips Osteoporosis screening Asymptomatic menopause Expected: 01/06/2025 (Approximate), Expires: 01/06/2025 [facility] Comment on above: Expected: 01/06/2025 (Approximate), Expires: 01/06/2025 Start: 01-06-2025 Screening for malign ant neoplasm of breast Mammogram [facility] Start: 12-07-2024 Adult BMI Screening Adult BMI Screen ing [facility] Start: 12-07-2024 Tobacco Screening Tobacco Screening [facility] Start: 01-20-2024 End: 01-20-2024 Patient encounter procedure 01/20/2024 1:15 PM EDT Office Visit [facility] [address] [place] [address] [facility] [place] [address] Sunday Yoder MD [address] [place] [address] [facility] Start: 11-30-2023 COVID-19 Vaccine ( season) COVID-19 Vaccine ( season) [facility] Start: 11-30-2023 Influenza vaccination [facility] Start: 10-29-2022 FUV, Provider: Maria De Jesus Green, Status: Pen, Time: 2:00 PM FUV, Provider: Maria De Jesus Green, Status: Pen, Time: 2:[address] Work Phone: Start: 01-28-2022 FUV, Provider: Maria De Jesus Green, Status: Pen, Time: 2:30 PM FUV, Provider: Maria De Jesus Green, Status: Pen, Time: 2:[address] Work Phone: Start: 12-07-2021 FUV, Provider: Maria De Jesus Green, Status: Pen, Time: 8:40 AM FUV, Provider: Maria De Jesus Green, Status: Pen, Time: 8:40 AM [facility] 250 DO Work Phone: Start: 10-30-2021 ECHO, Provider: FINESSE ANGELINA [facility] 01,[id number], Status: Pen, Time: 7:45 AM ECHO, Provider: [place] [facility] 01,[id number], Status: Pen, Time: 7:45 AM [facility] Work [facility]: Start: 03-06-2019 Pneumococcal Vaccine : 65+ Years (2 of 2 - PPSV23 or PCV20) Pneumococcal Vaccine: 65+ Years (2 of 2 - PPSV23 or PCV20) [facility] Start: 2017 Fall Risk Screening Fall Risk Screen ing [facility] Start: 2002 Administration of varicella zoster vaccine Zoster (Shingles) Vaccine (1 of 2) [facility] Start: 1971 DTaP,Tdap and Td Vaccines (1 - Tdap) DTaP,Tdap and Td Vaccines (1 - Tdap) [facility] Start: 1970 Adult BMI Follow Up Plan Adult BMI Follow Up Plan [facility] Start: 1964 Depression Screening Depression Scre [facility] Start: 1952 Medicare Annual Well ness Visit Medicare Annual Wellness Visit [facility] Start: 1952 Screening for malign ant neoplasm of colon [facility] Comprehensive metabo lic 2000 panel - Serum or Plasma [facility] Immunizations Immunization Date Immunization Notes Care Provider Rosalba mancilla 02-09-2021 Pfizer-BioNTech COVID-19 Vacc 30 MCG/0.3ML Intramuscular Suspension Arabella Moise [facility] 06-15-2020 Pfizer-BioNTech COVID-19 Vacc 30 MCG/0.3ML Intramuscular Suspension Arabella Moise [facility] 05-25-2020 Pfizer-BioNTech COVID-19 Vacc 30 MCG/0.3ML Intramuscular Suspension [facility] 02-25-2020 influenza, seasonal, injectable Arabella Marquez Other [facility] 02-25-2020 influenza, injectable, quadrivalent, contains preservative Arabella Marquez -[facility] 250 DO Work Phone: 02-25-2020 influenza virus vaccine, unspecified formulation Nakul Lucia DO Work Phone: [facility] 12-27-2019 influenza, seasonal, injectable Arabella Marquez Other [facility] 03-06-2018 pneumococcal conjugate vaccine, 13 valent Arabella Marquez [facility] 01-02-2018 pneumococcal conjugate vaccine, 13 valent Arabella Marquez -[facility] 250 DO Work Phone: NEGATED: Highlighted row has not occurred!01-08-2019 influenza, seasonal, injectable Patient Objection Arabella Marquez Other [facility] Payers Date Payer Category Payer [facility] yas FRANCO [id number] 2022 [facility] [id number] 2017 Medicare [id number] 2017 Medicare [id number] 1959 Private Health Insurance [id number] 1950 Unknown [id number] 2.16.840.1.386032.3.579. 2.355 1950 Unknown [id number] 2.16.840.1.101466.3.579. 2.1068 1952 Unknown [id number] 2.16.840.1.818836.3.579. 2.593 1950 Unknown [id number] 2.16.840.1.523675.3.579. 2.593 1950 Unknown [id number] 2.16.840.1.879512.3.579. 2.593 1952 Unknown [id number] 2.16.840.1.622840.3.579. 2.593 1952 Unknown [id number] 2.16.840.1.675192.3.579. 2.356 1952 Unknown [id number] 2.16.840.1.091292.3.579. 2.356 1952 Unknown [id number] 2.16.840.1.034851.3.579. 2.1244 1952 Unknown [id number] 2.16.840.1.239953.3.579. 2.1286 1952 Unknown [id number] 2.16.840.1.238114.3.579. 2.1259 1950 Unknown [id number] 2.16.840.1.667610.3.579. 2.1259 1950 Unknown [id number] 2.16.840.1.851745.3.579. 2.1286 Private Health Insurance [id number] Self-pay Self Pay [id number] Unknown [facility] Social History Date Type Detail Facility Start: 05-10-2020 End: 12-08-2023 No illicit drug use No illicit drug use [facility] Start: 05-10-2020 End: 12-08-2023 Sex Assigned At [facility] Start: 01-14-2023 End: 10-30-2023 Tobacco smoking status NHIS Never smoked tobacco (finding) [facility] Start: 1950 Sex Assigned At Female F [facility] Tobacco smoking stat us NHIS Tobacco smoking consumption unknown [facility] Start: 1950 Sex assigned at Not on file [facility] Start: 01-14-2023 Tobacco use and exposure Smokeless tobacco non-user [facility] Start: 12-08-2023 End: 01-20-2024 Alcoholic beverage intake Current non-drinker of alcohol (finding) [facility] Childcare Unknown [facility] Start: 11-01-2014 Sex Female (finding) [facility] Medical Equipment Procedure Code Equipment Code Equipment Origin al Text Equipment Identifier Dates Stnt Uret 6fr 24 cm Pgtl Crv Rpl [id number] - Sn/A - [id number] Start: 11-18-2017 Clinical Notes 10-11-2009 to 01-20-2024 Yoder MD - 01/20/2024 1:15 PM EDTTelephone Encounter - Ally Carpenter LPN - 01/16/2024 3:01 PM EDTTelephone Encounter - Ally Carpenter LPN - 01/16/2024 3:01 PM EDT Note Date & Type Note Facility 01-20-2024 History of Presen t illness Narrative Images from the original note were not included. [address] [place] [address] [address] [facility] [id number] Patient: Suzanna Howard Date of : 1950 Encounter Date: 01/20/2024 History of Present Illness: The patient is a 73 y.o. female, an established patient, and is here for followup. She has a history of recurrent kidney stones treated mostly in the past in [place]. She had a successful ureteroscopy in October 2017. She recurrent stone on the left and underwent another ureteroscopy August 2021 without stent. The ureteral calculus which had been present had passed. She had some lower pole renal calculi which were also treated. No sequelae from that. No symptoms of stones over the past year. She underwent KUB which we reviewed. She is overlying bowel gas and stool more so on the left than the right. There is a small calcification which is unclear if that is in the colon versus the left kidney. Summary of old records: Urinalysis today: No results for input(s): EXTPOCURCO , EXTPOCURCH , EXTPOCAPP , EXTPOCURBS , EXTPOCURBIL , EXTPOCUKET , EXTPOCUSPG , EXTPOCUHGB , EXTPOCUPRO , EXTPOCUURO , EXTPOCULEU , EXTPOCUNIT , EXTPOCUWBC , EXTPOCUBLD , EXTPOCURBC , EXTPOCUCRY , EXTPOCUBAC , EXTPOCUTREP , EXTPOCUPH in the last 72 hours. Last BUN and creatinine: Lab Results Component Value Date BUN 18 08/29/2021 Lab Results Component Value Date CREATININE 0.80 08/29/2021 Last PSA: No results found for: PSA No results found for: PROSTATICSP Additional Lab/Culture results: None Imaging Reviewed during this Office Visit: None (Results were independently reviewed by physician and radiology report verified) Past Medical, Family, and Social History Update: The following portions of the patient's history were reviewed and updated as appropriate: allergies, current medications, past family history, past medical history, past social history, past surgical history and problem list. Past Medical History: Diagnosis Date Abnormal EKG Chronic kidney disease stones Diabetes mellitus type 2, controlled ([facility]) HL (hearing loss) bilateral hearing aids Hyperlipidemia Hypertension Stroke ([facility]) 1998 Visual impairment reading glasses Past Surgical History: Procedure Laterality Date COLON SURGERY colonoscopy 03/11/[address] Holder CYSTOSCOPY HOLMIUM LASER URETEROSCOPY left kidney pelvis Left 11/18/2017 Performed by Sunday Yoder MD at [facility] CYSTOSCOPY INSERTION STENT Left 11/18/2017 Performed by Sunday Yoder MD at [facility] CYSTOSCOPY RETROGRADE PYELOGRAM Left 09/11/2021 Performed by Sunday Yoder MD at [facility] LASER HOLMIUM URETEROSCOPY RENAL STONES < OR=1CM Left 09/11/2021 Performed by Sunday Yoder MD at [facility] LITHOTRIPSY NECK SURGERY Family History Problem Relation Age of Onset Heart attack Father Heart disease Father Cancer Mother Current Outpatient Medications Medication Sig Dispense Refill aspirin 325 mg tablet Take 1 tablet (325 mg total) by mouth in the morning. atorvastatin (LIPITOR) 40 mg tablet Take 1 tablet (40 mg total) by mouth in the morning. cetirizine-pseudoephedrine (ZyrTEC-D) 5-120 mg per 12 hr tablet Take 1 tablet by mouth in the morning and 1 tablet before bedtime. gabapentin (NEURONTIN) 300 mg capsule Take 1 capsule (300 mg total) by mouth 3 (three) times a day. HYDROcodone-acetaminophen (NORCO) 5-325 mg per tablet Take 1 tablet by mouth every 6 (six) hours as needed for pain for up to 6 doses. Max Daily Amount: 4 tablets 6 tablet 0 losartan (COZAAR) 25 mg tablet Take 2 tablets (50 mg total) by mouth in the morning. metFORMIN (GLUCOPHAGE) 500 mg tablet Take 1 tablet (500 mg total) by mouth in the morning and 1 tablet (500 mg total) in the evening. Take with meals. metoprolol succinate XL (TOPROL-XL) 200 mg 24 hr tablet Take 1 tablet (200 mg total) by mouth in the morning. venlafaxine (EFFEXOR) 25 mg tablet Take 6 tablets (150 mg total) by mouth in the morning and 6 tablets (150 mg total) before bedtime. No current facility-administered medications for this visit. (All medications reviewed and updated by provider since last office visit or hospitalization) Allergies: Egg Tobacco History: Social History Tobacco Use Smoking Status Never Smokeless Tobacco Never (If patient a smoker, smoking cessation counseling offered) Social History: Social History Substance and Sexual Activity Alcohol Use No Review of Systems: General: Negative for chills and fever. Cardiovascular: Negative for chest pain and shortness of breath. Gastrointestinal: Negative for constipation, diarrhea, nausea, and vomitting. Physical Exam: BP 127/76 Pulse 65 Ht 160 cm (5' 3 ) Wt 68.5 kg (151 lb) BMI 26.75 kg/m Assessment and Plan: Suzanna was seen today for follow-up. Diagnoses and all orders for this visit: Kidney stones Problem List Genitourinary Kidney stones - Primary Overview History of recurrent kidney stones with total 6 ESWLs last about 2013 Metabolic workup in [place] showing low volume 09/15: Enlarging left kidney stone. Plan for CT to evaluate anatomy further with plans to treat stones given that they are enlarging 7/17/18: CT with left 11 x 11 mm UPJ stone along with 3 additional stones within kidney. Plan for left ureteroscopy with laser lithotripsy and stent. We did also talk about ESWL but given the multiple stones in the size it is not As likely to be successful. The risks and benefits as outlined in the consent were discussed. All relevant drawings were reviewed. All questions were answered. The patient expressed understanding and wished to proceed 11/18/17: Left ureteroscopy with laser, stent on string 12/16/17: Doing well. Plan kub 1 year 11/10/19: Recent passage of a large stone. This will be sent for analysis. We will check a KUB and determine further management from there. 05/22/21: Patient had been referred back with micro hematuria. This has resolved today. Plan to repeat urinalysis with KUB to see if she has more stones. 06/06/21: New 6.6 mm calcification in the left hemipelvis-she is asymptomatic. No obvious right renal stones. Bowel content obscures the view of the left kidney. UA shows trace blood. We will send for microscopic exam. If positive for blood, we will check a CT scan. 06/07/21: UA with [address] 06/26/21: CT showed a 4-5mm distal left ureteral stone. She would like to try to pass the stone. She will start Flomax. 08/01/21: On personal review of the films, the stone measures 6 x 9 mm. She has several left-sided intrarenal stones as well. Options reviewed and she agrees to be set up for cystoscopy/left ureteroscopy/laser/stent placement 09/11/21: Left ureteroscopy with laser lithotripsy of renal stones, no stent 12/04/21: Overall doing well. Plan to check KUB 1 year. 01/20/24: KUB with possible small left nonobstructing stone. Plan repeat KUB 1 year Follow-up: Sunday Yoder MD This note was created with the assistance of a speech recognition program. While intending to generate a timely document that accurately reflects the content of the visit, no guarantee can be provided that every grammatical or spelling mistake has been or will be identified or corrected. Thank you for your understanding. documented in this encounter [facility] 01-16-2024 Miscellaneous Notes Formattin g of this note might be different from the original. This nurse contacted the Pt. To remind her to get her KUB done before her appt on Friday with MD Stewart. Pt. Stated she will get that done. documented in this encounter [facility] 01-16-2024 Telephone encount er Note This nurse contacted the Pt. To remind her to get her KUB done before her appt on Friday with MD Stewart. Pt. Stated she will get that done. [facility] 01-07-2024 History of Presen t illness Narrative Images from the original note were not included. Nakul Lucia, Obstetrics and Gynecology Suzanna [place] 1950 01/07/24 [id number] Yearly Wellness Exam Chief Complaint Patient presents with Gynecologic Exam Yearly, Pt denies Breast pain ,urinary, bowel or consultants intern issues. Last Pap: Postmenopausal Last Pap: 06/26/2020 Visit Vitals BP 124/72 Wt 151 lb 1.6 oz BMI 26.55 kg/m BSA 1.75 m History of Present Illness No current outpatient medications on file. No current facility-administered medications for this visit. No Known Allergies Past Medical History: Diagnosis Date Chronic kidney disease DM2 (diabetes mellitus, type 2) (CMS/HCC) HTN (hypertension) (CMS/HCC) Hyperlipidemia (CMS/HCC) Kidney stones Stroke (cerebrum) (CMS/HCC) Past Surgical History: Procedure Laterality Date COLONOSCOPY 02/12/2023 Dr. Horton HYSTEROSCOPY Op. hysteroscopy,D and C,thermal ablation LITHOTRIPSY NECK SURGERY TUBAL LIGATION OB History Para Term AB Living 3 3 3 3 SAB IAB Ectopic Multiple Live Births 3 # Outcome Date GA Lbr Praful/2nd Weight Sex Type Anes PTL Lv 3 Term 2 Term 1 Term Obstetric Comments Pap 06/26/20- Neg, HPV Neg Mammogram 01/07/24- Neg Dexa 06/2021- osteopenia of hips, spine normal Colonoscopy 02/12/2023 (Dr. Horton) ROS General: Denies fevers/chills Eyes: Denies vision changes ENT: Denies neck stiffness, neck mass Endocrine: Denies polydipsia and polyuria Respiratory: Denies shortness of breath Cardiovascular: Denies chest pain and palpitations Gastrointestinal: Denies changes in bowel habits, blood in stool, constipation and diarrhea. Hematology: Denies easy bruising. Women Only: Denies breast masses, skin changes, nipple discharge, abnormal bleeding, pelvic pain and dyspareunia Genitourinary: Denies dysuria, pelvic pain and nocturia Skin: Denies rashes/lesions Neurologic: Denies headaches, dizziness, syncope Psychiatric: Denies hallucinations, suicidal ideas EXAM GENERAL EXAMINATION: Alert, oriented, well developed, well nourished. HEAD: Normocephalic, atraumatic. EYES: BABITA, sclera anicteric. EARS: No obvious hearing deficit. NECK/THYROID: Neck supple no cervical lymphadenopathy no thyromegaly. LYMPH NODES: No axillary, supraclavicular or inguinal adenopathy. SKIN: Warm and dry. No rashes HEART: Regular rate and rhythm. No murmur LUNGS: Clear to auscultation bilaterally. CHEST: Axillary nodes grossly normal. BREASTS: No dominant masses palpable bilaterally, no skin changes, nipple discharge, supra-clavicular or axillary adenopathy ABDOMEN: Soft, nontender, nondistended, no hernia or masses palpable. BACK: No obvious scoliosis/kyphosis. FEMALE GENITOURINARY: Cleater in room-EFG without sores/lesions, atrophic vaginal mucosa-no discharge, cervix without lesions, uterus AV, NSSC, no adnexal masses, cul-de-sac negative, Gr 2 cystocele, Gr 2 rectocele. EXTREMITIES No edema. NEUROLOGIC: Alert and oriented. PSYCH: Cooperative with exam. ICD-10-CM 1. Encounter for gynecological examination with abnormal finding Z01.411 2. Encounter for screening mammogram for malignant neoplasm of breast Z12.31 Bilateral screening mammogram with tomosynthesis 3. Osteopenia of both hips M85.851 M85.852 4. Vaginal atrophy N95.2 5. Cystocele with rectocele N81.10 N81.6 Advised pt to perform monthly self breast exams. Encouraged calcium and Vitamin D intake. Admits to not taking Calcium or Vit D supplements and does not get much through her diet. She states she develops kidney stones with Calcium. Will plan to increase cheese in diet and increase weight bearing exericise Reviewed Dexa, plan to repeat next year. Mammogram completed this morning, will send future order. Colonoscopy up to date. Denies pelvic organ prolapse symptoms of any significance. Plan to return in 1 year for annual exam. Entered by Lani Rojas LPN acting as scribe for Dr. Nakul Lucia. Signature: Lani Rojas LPN The documentation recorded by the scribe accurately reflects the service(s) I personally performed and the decisions I made. Signature: Nakul Lucia DO Assessment & Plan documented in this encounter [facility] 04-30-2023 Evaluation note Encounter Date Diagnosis Assessment [...] know and [facility] would [facility] to see if this helps improve this issue. Nothing was seen on the EGD that would effect the swallowing. She voices that she has had this issue for a long time. If she calls we [facility] to see if [...] with above medication as directed. Mar, Other skilled nursing (current) drug therapy (ICD-10 - Z79.899) Mar, [...] a repeat colonoscopy done in five years. [employer] Other 10-06-2023 Evaluation note* Encounter Date Diagnosis Assessment Notes Treatment Notes Treatment Clinical Notes 06 Oct, 2023 Hyperlipidemia (ICD-10 - E78.5) [employer] Other 07-27-2023 Evaluation note* Encounter Date Diagnosis [...] foot only one at a time (not lao style) and once in awhile it will [...] she is doing alot of traveling to [place] to visit her daughter and grandkids now [...] see Dr. Green on 10-29-22. Sep, Other skilled nursing (current) drug therapy (ICD-10 - Z79.899) Sep, Foot pain (ICD-10 - M79.673) bilateral Will order an EMG to rule out abnormalities. Her left foot is worse so I will order an x-ray of her left foot. She can call for results. [employer] Other 05-09-2023 History general Narrative - Reported* [...] History hearing aids 12/11/15 Surgical History colonoscopy [facility]- normal, needs repeat in 10 years (2025) 02/2016 Surgical History mammogram - [facility] 03/[address] Yoder kidney stones Surgical History ECHO 01/22/18 Hospitalization History see above surgical histo ry [employer] Other 03-10-2023 History general Narrative - Reported* [...] History hearing aids 12/11/15 Surgical History colonoscopy [facility]- normal, needs repeat in 10 years (2025) 02/2016 Surgical History mammogram - Brynn 03/[address] Yoder kidney stones Surgical History ECHO 01/22/18 Hospitalization History see above surgical histo ry [employer] Other 02-14-2023 Evaluation note* Encounter Date Diagnosis Assessment Notes Treatment Notes Treatment Clinical Notes May, Diabetes mellitus, type 2 (ICD-10 - E11.9) May, 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 Mar, Other skilled nursing (current) drug therapy (ICD-10 - Z79.899) Mar, [...] Pneumonia vaccine at her local retail pharmacy. [employer] Other 07-19-2022 Evaluation note* Encounter Date Diagnosis [...] cream because she loves it. Sep, Other skilled nursing (current) drug therapy (ICD-10 - Z79.899) Sep, [...] I42.9) Continue with above medication, follow with machine tracer as directed. She voices that she will see Dr. Green in the fall. Sep, Other She saw Dr. Yoder last month who removed a kidney stone from the left side. She will continue to follow with him and will see him in November (2021). [employer] Other 05-09-2022 History general Narrative - Reported* [...] History Refuses Colonoscopy and Seracult card x1 8-15 Surgical History D&C 2004 Surgical History hearing aids 12/11/15 Surgical History colonoscopy [facility]- normal, needs repeat in 10 years (2025) 02/2016 Surgical History mammogram - Brynn 03/[address] Yoder kidney stones Surgical History ECHO 01/22/18 Hospitalization History see above surgical histo ry [employer] Other 05-06-2022 NoteHISTORY: Bone density screening. COMPARISON: [...] and signed by Tony Garcia on 08/06/2021 [facility]04-19-2022 Evaluation note* Encounter Date Diagnosis Assessment Notes Treatment Notes Treatment Clinical Notes Jun, Pulmonary nodule (ICD-10 - R91.1) [employer] Other 04-01-2022 Evaluation note* Encounter Date Diagnosis [...] calcified. She may need to see a on site coordinator to discuss when she should have another CT scan done, I would likely refer her to Dr. Starkey. She is agreeable to this if it is necessary. She has never been a smoker but is exposed to second hand smoke and has been for years (her ). Jun, Other 9:58 AM -10:08 AM [employer] Other 03-10-2022 History general Narrative - Reported* [...] History hearing aids 12/11/15 Surgical History colonoscopy [facility]- normal, needs repeat in 10 years (2025) 02/2016 Surgical History mammogram - Brynn 03/[address] Yoder kidney stones Surgical History ECHO 01/22/18 Hospitalization History see above surgical histo ry [facility] Other 01-19-2022 Evaluation note* Encounter Date Diagnosis [...] practitioner or a physicians assistant professor of biochemistry. She normally gets a letter once a [...] to follow with Dr. Contreras or his BARREL HEADER/PA. She voices that she has an appointment [...] above medication daily as directed. Mar, Other skilled nursing (current) drug therapy (ICD-10 - Z79.899) Mar, [...] of sleep apnea. Will continue to monitor. [employer] Other 07-14-2010 History general Narrative - Reported* [...] Medical History Refuses Colonoscopy and Seracult cards 14 Medical History Refuses Colonoscopy and Seracult card x1 15 Medical History Refuses Colonoscopy and Seracult card x1 15 Surgical History D&C 2004 Surgical History hearing aids 12/11/15 Surgical History colonoscopy [facility]- normal, needs repeat in 10 years (2025) 02/2016 Surgical History mammogram - Brynn 03/[address] Yoder kidney stones Surgical History ECHO 01/22/18 Hospitalization History see above surgical histo ry [employer] Other 07-14-2010 History general Narrative - Reported* [...] Hospitalization History see above surgical histo ry [employer] Other 07-14-2010 History general Narrative - Reported* [...] History see above surgical histo ry [facility] Other [facility] Other Evaluation note* Diagnosis Onset Date Resolution Status Cardiomyopathy acute Depression acute Diabetes type 2, controlled acute Glossodynia acute Hyperlipidemia acute Hypertension acute Macrocytosis acute Sting, wasp acute Weight loss acute [facility] Work Phone: Evaluation note* Diagnosis Encounter for gynecological examination with abnormal finding- Primary Encounter for screening mammogram for malignant neoplasm of breast Osteopenia of both hips Vaginal atrophy Postmenopausal atrophic vaginitis Cystocele with rectocele Osteoporosis screening Special screening for osteoporosis Asymptomatic menopause [facility] Kidney stones- Primary Calculus of kidney Microscopic hematuria Kidney stones- Primary Calculus of kidney Kidney stones- Primary Calculus of kidney [facility] Patient is here [...] back in the office in 9 months [facility] [address] DO Work Phone: History of [...] back in the office in 9 months [facility] [employer] Work Phone: History of Present illness Narrative* [...] back in the office in 9 months [facility] Work Phone: History of Present [...] back in the office in 9 months [facility] [address] DO Work Phone: InstructionsNot on filedocumented in this encounter [place] [facility] SystemInstructionsNot on filedocumented in this encounter [facility] Summary Purpose Family History No Family History Records FoundUnknown Family Member Name Dates Details Family history [...] history of CABG: Brot her(V17.49, Z82.49) Status:Active Relationship Condition Age at Onset Recorded Date/T zhang father Unknown History of stroke Unknown Diabetes mellitus Unknown Heart disease Unknown grandparent Unknown Malignant neoplasm Unknown mother Malignant neoplasm Unknown Unknown Advance Directives No Advanced Directives Records Found Advance Directive Response Recorded Date/ Time Advance Directives No April 14, 2017 1:22pm Chief Complaint SUZANNA HOWARD is being seen for an annual follow-up of.SUZANNA is being seen for an annual follow-up of.SUZANNA HOWARD is being seen for an annual follow-up of. TESTING RESULTS. Reason for Referral Reason appt consult to benny baum pulmonary nodules found on CT chest Diagnosis 1 Pulmonary nodule (R9 1.1) Referral Organization [facility] Michelle Chery Referring Provider First Name Arabella Referring Provider Last Name Julissa Referring Provider Specialty Family Prac orly Referred Organization Unknown Facility Referred Provider Mary Anne Starkey Referred Provider Specialty Pulmonary Di himaes Referral Priority Routine General Notes [facility] 07/17/2021 11:44:22 AM > referral faxed with visit note, CT report and insurance card. pt understands she will be contacted to schedule this appt. Chief Complaint and Reason for Visit Chief Complaint Amb Documentation review labs Reason for Visit Cardiomyopathy Depression Diabetes type 2, controlled Glossodynia Hyperlipidemia Hypertension Macrocytosis Sting, wasp Weight loss Additional Source Comments INFORMATION SOURCE (unrecogn ized section and content) DATE CREATED AUTHOR 02/27/2018 [facility] DATE CREATED AUTHOR AUTHOR'S ORGANIZ ATION 08/06/2021 [facility] DATE CREATED AUTHOR AUTHOR'S ORGANIZ ATION 01/21/2022 [facility] DATE CREATED AUTHOR AUTHOR'S ORGANIZ ATION 04/24/2022 [facility] DATE CREATED AUTHOR AUTHOR'S ORGANIZ ATION 10/30/[address] [facility] DATE CREATED AUTHOR AUTHOR'S ORGANIZ ATION 10/30/2022 [facility] DATE CREATED AUTHOR AUTHOR'S ORGANIZ ATION 11/02/2023 [facility] DATE CREATED AUTHOR AUTHOR'S ORGANIZ ATION [facility] DATE CREATED AUTHOR AUTHOR'S ORGANIZ ATION 01/12/2024 [facility] DATE CREATED AUTHOR AUTHOR'S ORGANIZ ATION 01/22/2024 [facility] REASON FOR VISIT (unrecogniz ed section and content) Reason Comments Gynecologic Exam Yearly, Pt denies [place] pain ,urinary, bowel or consultants intern issues. Last Pap: Postmenopausal Last Pap: 06/26/2020 Reason Comments Follow-up Care Teams (unrecognized sec tion and content) Team Status: Active Member Role Status Dates Arabella Marquez DO Primary Care Provider Active Team Status: Active Member Role Status Dates Arabella Marquez DO Primary Care Provider Active S tart: October 21, 2023 Reggie Ellsworth LPN Attending Provider Active St art: October 21, 2023 Team Status: Active Member Role Status Dates Arabella Marquez DO Primary Care Provide r, Attending Provider Active Start: October 24, 2023 Team Status: Inactive Member Role Status Dates Arabella Maruqez DO Primary Care Provide r, Attending Provider Active Start: October 30, 2023 End: October 30, 2023 Erp Developer Relationship Specialty Start Date End Date Arabella Marquez DO [address] [place] [address] [place] [address] PCP - General 09/08/17 Erp Developer Relationship Specialty Start Date End Date Arabella Marquez DO [address] [place] [address] [place] [address] PCP - General 09/08/17 Goals (unrecognized section and content) Goals may be documented in a n alternate section FOR RECORDS PERTAINING TO PATIENTS WHO ARE [...] BE BASED ON THE PRIMARY CLINICAL RECORDS. [employer] provides no warranty or guarantee of the accuracy or completeness of information in this document.
[2024-05-07 09:55] LABS: Basophils Percent Auto 0.7 % (0.2-2.0); Eosinophils Absolute Auto 0.4 10^3/uL (0.0-0.7); Hematocrit 39.2 % (36.0-48.0); Hemoglobin 12.4 g/dL (12.0-16.0); Immature Granulocytes Abs Auto 0.01 10^3/uL (0.00-0.03); Immature Granulocytes Pct Auto 0.2 % (0.0-0.5); Lymphocytes Absolute Auto 1.9 10^3/uL (1.2-3.8); Lymphocytes Percent Auto 31.7 % (20.5-60.0); Mean Corpuscular HGB Conc 31.6 g/dL (29.9-35.2); Mean Corpuscular Hemoglobin 29.5 pg (26.7-34.0); Mean Corpuscular Volume 93.3 fL (81.0-99.0); Mean Platelet Volume 9.2 fL (9.5-13.5); Monocytes Absolute Auto 0.9 10^3/uL (0.3-0.8); Monocytes Percent Auto 15.2 % (1.7-12.0); Neutrophils Absolute Auto 2.8 10^3/uL (1.4-6.5); Neutrophils Percent Auto 46.2 % (43.0-75.0); Platelet Count 250 10^3/uL (150-450); Red Cell Distribution Width 13.5 % (11.0-15.0)
[2024-05-07 11:13] LABS: Alanine Aminotransferase 42 U/L (14-59); Albumin Level 3.5 g/dL (3.4-5.0); Alkaline Phosphatase 77 U/L (46-116); Anion Gap 13.8; Aspartate Amino Transferase 25 U/L (15-37); BUN Creatinine Ratio 11.3; Bilirubin Total 0.8 mg/dL (0.2-1.0); Calcium 9.2 mg/dL (8.5-10.1); Carbon Dioxide 28.8 mmol/L (21.0-32.0); Chloride 106 mmol/L (98-107); Chol HDL Ratio 2.6; Cholesterol 168 mg/dL (<=200); Estimated GFR (African America >60 (>=60 mL/min/1.73m^2); Estimated GFR (Non-African Ame 56 (>=60 mL/min/1.73m^2); Globulin 3.4 g/dL; Glucose 92 mg/dL (74-106); HDL Cholesterol 65 mg/dL (40-60); Potassium 4.6 mmol/L (3.5-5.1); Sodium 144 mmol/L (136-145); Thyroid Stimulating Hormone 1.347 uIU/mL (0.358-3.740); Total Protein 6.9 g/dL (6.4-8.2); Triglycerides 109 mg/dL (<=150); VLDL CHOLESTEROL 21.8 mg/dL
[2024-05-07 13:07] LABS: Estimated Average Glucose 134 mg/dL; Glycohemoglobin A1C 6.3 % (4.5-6.2)
[2024-05-08 04:06] LABS: Vitamin B12 404 pg/mL (232-1245)
== END 2024-05-07 09:31 | disposition home or self-care (01) ==
LOC: LAB 09:32
PROVIDERS: PCP Family Medicine; Visit Provider Family Medicine
DX: Z79.899 Other long term (current) drug therapy (principal); E11.9 Type 2 diabetes mellitus without complications; D75.89 Other specified diseases of blood and blood-forming organs; E78.5 Hyperlipidemia, unspecified; R63.4 Abnormal weight loss
CPT/HCPCS: 36415; 80053; 80061; 82607; 82746; 83036; 84443; 85025

== ENCOUNTER 2024-11-08 09:51 | Outpatient (OUT) | payer MEDICARE, BC, SELFPAY ==
[2024-11-08 10:36] LABS: Glucose Urine UA NEGATIVE (NEGATIVE)
[2024-11-08 10:41] LABS: Microalbum Creatinine Ratio Ur 29.5 mg/g (0.0-29.9)
[2024-11-08 10:44] LABS: Hematocrit 38.1 % (36.0-48.0); Hemoglobin 12.6 g/dL (12.0-16.0); Immature Granulocytes Abs Auto 0.03 10^3/uL (0.00-0.03); Immature Granulocytes Pct Auto 0.4 % (0.0-0.5); Lymphocytes Absolute Auto 2.3 10^3/uL (1.2-3.8); Mean Corpuscular HGB Conc 33.1 g/dL (29.9-35.2); Mean Corpuscular Hemoglobin 30.6 pg (26.7-34.0); Mean Corpuscular Volume 92.5 fL (81.0-99.0); Platelet Count 340 10^3/uL (150-450); Red Blood Count 4.12 10^6/uL (4.20-5.40); White Blood Count 8.4 10^3/uL (4.0-11.0)
[2024-11-08 10:52] LABS: Alanine Aminotransferase 25 U/L (14-59); Albumin Globulin Ratio 1.0; Albumin Level 3.6 g/dL (3.4-5.0); Alkaline Phosphatase 86 U/L (46-116); Anion Gap 8.9; Aspartate Amino Transferase 14 U/L (15-37); Blood Urea Nitrogen 13.0 mg/dL (7.0-18.0); Calcium 9.4 mg/dL (8.5-10.1); Carbon Dioxide 30.4 mmol/L (21.0-32.0); Chloride 105 mmol/L (98-107); Cholesterol 199 mg/dL (<=200); Estimated GFR (African America >60 (>=60 mL/min/1.73m^2); Estimated GFR (Non-African Ame >60 (>=60 mL/min/1.73m^2); Globulin 3.7 g/dL; Glucose 112 mg/dL (74-106); HDL Cholesterol 74 mg/dL (40-60); Potassium 4.3 mmol/L (3.5-5.1); Sodium 140 mmol/L (136-145); Total Protein 7.3 g/dL (6.4-8.2); Triglycerides 117 mg/dL (<=150); VLDL CHOLESTEROL 23.4 mg/dL
[2024-11-08 11:25] LABS: Folate 32.30 ng/mL (8.60-58.90)
[2024-11-09 07:09] LABS: Vitamin B12 304 pg/mL (232-1245)
== END 2024-11-08 09:52 | disposition home or self-care (01) ==
LOC: LAB 09:53
PROVIDERS: PCP Family Medicine; Visit Provider Family Medicine
DX: Z79.899 Other long term (current) drug therapy (principal); E11.9 Type 2 diabetes mellitus without complications; R80.9 Proteinuria, unspecified; E78.5 Hyperlipidemia, unspecified; R35.1 Nocturia; D75.89 Other specified diseases of blood and blood-forming organs
CPT/HCPCS: 36415; 80053; 80061; 81003; 82043; 82570; 82607; 82746; 83036; 85025; 87086